=== PATIENT | male | born 1970 | race Two or more races ===

== ENCOUNTER 2020-11-17 10:55 | Outpatient (REF) | payer MEDICARE, SELFPAY ==
[2020-11-17 13:59] LABS: MANUAL DIFF FLAG NO
[2020-11-17 14:08] LABS: Basophils Absolute Auto 0.1 X10*3/uL (0.0-0.2); Eosinophils Absolute Auto 0.2 X10*3/uL (0.0-0.4); Eosinophils Percent Auto 2.7 % (0-4); Hematocrit 47.8 % (42-52); Hemoglobin 16.3 g/dl (14.0-18.0); Imm Gran Abs Auto 0.01 X10*3/uL (0.00-0.03); Imm Gran Pct Auto 0.2 % (0.0-0.4); Lymphocytes Absolute Auto 2.5 X10*3/uL (1.2-4.9); Lymphocytes Percent Auto 42.1 % (20-40); Mean Corpuscular HGB Conc 34.1 g/dl (31.0-36.0); Mean Corpuscular Hemoglobin 31.1 pg (27.0-33.0); Mean Corpuscular Volume 91.2 fL (80-98); Mean Platelet Volume 12.3 fL (9.4-12.4); Monocytes Absolute Auto 0.7 X10*3/uL (0.1-1.2); Monocytes Percent Auto 11.7 % (2-11); Neutrophils Absolute Auto 2.5 X10*3/uL (2.0-8.3); Neutrophils Percent Auto 42.3 % (45-73); Platelet Count 166 X10*3/uL (160-400); Red Blood Count 5.24 X10*6/uL (4.60-5.80)
[2020-11-17 14:34] LABS: Estimated Average Glucose 346 mg/dL; Hemoglobin A1c % 13.7 %
[2020-11-17 14:43] LABS: TSH reflex Free T4 4.49 uIU/mL (0.32-4.0)
[2020-11-17 14:47] LABS: Alanine Aminotransferase 120 U/L (0-40); Albumin Level 4.3 g/dL (3.5-5.0); Alkaline Phosphatase 105 U/L (39-117); Anion Gap 16 (12-20); Aspartate Amino Transferase 96 U/L (5-37); Blood Urea Nitrogen 12 mg/dL (9-16); Calcium 9.9 mg/dL (8.4-10.2); Carbon Dioxide 28 mmol/L (22-29); Chloride 95 mmol/L (96-108); Estimated Glomerular Filt Rate > 60; Glucose Fasting 397 mg/dL (60-99); Potassium 5.1 mmol/L (3.3-5.1); Sodium 134 mmol/L (135-145); Total Protein 8.6 g/dL (6.5-8.0)
[2020-11-17 15:18] LABS: Free T4 (Free Thyroxine) 1.18 ng/dL (0.71-1.85)
[2020-11-17 17:10] LABS: CT PCR NOT DETECTED (Not Detect.); NG PCR NOT DETECTED (Not Detect.)
[2020-11-18 04:41] LABS: HBc Num1 0.21 S/CO (0.00-0.79); HIV AB/AG Nonreactive (Nonreactive); HIV Num 1 0.06 S/CO (0.00-0.99); Hepatitis A Antibody IgM 0.17 Index (0-0.79); Hepatitis B Core Antibody Nonreactive (Nonreactive); ~HepC Num1 0.13 S/CO (0.00-0.79); ~Hepatitis A Antibody IgM Nonreactive (Nonreactive); ~Hepatitis C Antibody Nonreactive (Nonreactive)
[2020-11-18 05:06] LABS: HBS Num1 > 1000.00 mIU/mL (0-7.99); HBsAGNum1 0.32 S/CO (0.00-0.99); Hepatitis B Surface Antigen Negative (Negative); ~Hepatitis B Surface Antibody REACTIVE (Nonreactive)
[2020-11-18 07:08] LABS: Syphilis Screen Nonreactive (Nonreactive)
== END 2020-11-17 10:56 | disposition home or self-care (01) ==
LOC: HO.HMGCLDS 10:55
PROVIDERS: PCP Nurse Practitioner Family; Visit Provider Nurse Practitioner Family
DX: Z12.5 Encounter for screening for malignant neoplasm of prostate (principal); Z11.3 Encounter for screening for infections with a predominantly sexual mode of transmission; Z01.84 Encounter for antibody response examination; Z11.4 Encounter for screening for human immunodeficiency virus [HIV]; R63.4 Abnormal weight loss; R73.01 Impaired fasting glucose
CPT/HCPCS: 80053; 83036; 84153; 84439; 84443; 85025; 86704; 86706; 86709; 86780; 86803; 87340; 87389; 87491; 87591

== ENCOUNTER 2020-11-29 08:50 | Outpatient (REF) | payer MEDICARE, SELFPAY ==
--- NOTE | ~2020-11-29 | US_ITS ---
EXAMINATION: US ABDOMEN COMPLETE CLINICAL INFORMATION: Elevated liver enzymes. COMPARISON: Abdominal ultrasound dated 02/02/2020 TECHNIQUE: Real-time imaging of the abdominal viscera. FINDINGS: PANCREAS: Normal. ABDOMINAL AORTA: Partially visualized and unremarkable. INFERIOR VENA CAVA: Partially visualized and unremarkable. LIVER: Normal. The liver is normal in size. The liver contour is normal. Parenchymal echogenicity is normal. No focal hepatic lesion. There is no intrahepatic biliary duct dilatation seen. GALLBLADDER: Normal. The gallbladder is physiologically distended without evidence of stones, sludge, polyps, wall thickening or pericholecystic fluid. COMMON BILE DUCT: Normal in caliber measuring 0.3 cm in diameter. RIGHT KIDNEY: Normal. No hydronephrosis. No renal calculi or focal parenchymal lesions. The kidney measures 10 cm in maximum dimension. LEFT KIDNEY: Normal. No hydronephrosis. No renal calculi or focal parenchymal lesions. The kidney measures 11.4 cm in maximum dimension. SPLEEN: Normal. The spleen measures 10.8 cm in maximum dimension. FREE FLUID: None. US/US abdomen complete IMPRESSION: Increased hepatic parenchymal echogenicity, which can be seen in the setting of steatosis. Underlying hepatocellular disease cannot be excluded. No hepatic parenchymal lesion or biliary ductal dilatation.
== END 2020-11-29 08:51 | disposition home or self-care (01) ==
LOC: HO.HMGCX 08:50
PROVIDERS: Visit Provider Nurse Practitioner Family
DX: R74.8 Abnormal levels of other serum enzymes (principal)
CPT/HCPCS: 76700

== ENCOUNTER 2021-08-08 12:07 | Outpatient (REF) | payer MEDICARE, SELFPAY ==
[2021-08-08 14:00] LABS: Appearance Urine CLEAR; Color Urine YELLOW; Glucose Urine UA NEG (NEG); Leukocyte Esterase Urine NEG (NEG); Nitrite Urine NEG (NEG); UACC Culture Trigger NO; Urine Blood NEG (NEG); Urine Ketones NEG (NEG); Urine Protein 1+ MG/DL (NEG-TRACE)
[2021-08-08 14:12] LABS: Estimated Average Glucose 169 mg/dL; Hemoglobin A1c % 7.5 %
[2021-08-08 14:13] LABS: Mucus Urine 1+ /LPF; RBC Urine 0 /HPF (0); Squamous Epithelial Cell Urine TRACE /LPF; WBC Urine 0 /HPF (0-4)
[2021-08-08 14:25] LABS: Alanine Aminotransferase 127 U/L (0-40); Albumin Level 4.2 g/dL (3.5-5.0); Alkaline Phosphatase 62 U/L (39-117); Anion Gap 12 (12-20); Aspartate Amino Transferase 95 U/L (5-37); Bilirubin Total 0.9 mg/dL (0.0-1.0); Blood Urea Nitrogen 15 mg/dL (9-16); Calcium 10.1 mg/dL (8.4-10.2); Carbon Dioxide 28 mmol/L (22-29); Chloride 101 mmol/L (96-108); Cholesterol 168 mg/dL; Estimated Glomerular Filt Rate > 60; Glucose Fasting 137 mg/dL (60-99); HDL Cholesterol 35 mg/dL; LDL Cholesterol Calculated 102 mg/dl; Potassium 4.7 mmol/L (3.3-5.1); Sodium 136 mmol/L (135-145); Total Protein 8.2 g/dL (6.5-8.0); Triglycerides 158 mg/dL
[2021-08-08 14:33] LABS: Creatinine Urine 163.93 mg/dL; Microalbum/Creatinine Ratio Ur 167.7 ug/mg cr
[2021-08-08 14:34] LABS: TSH reflex Free T4 5.39 uIU/mL (0.32-4.0)
[2021-08-08 15:18] LABS: Free T4 (Free Thyroxine) 0.93 ng/dL (0.71-1.85)
== END 2021-08-08 12:08 | disposition home or self-care (01) ==
LOC: HO.HMGCLDS 12:07
PROVIDERS: PCP Nurse Practitioner Family; Visit Provider Nurse Practitioner Family
DX: E11.9 Type 2 diabetes mellitus without complications (principal)
CPT/HCPCS: 36415; 80053; 80061; 81001; 81003; 82043; 83036; 84439; 84443

== ENCOUNTER → 2021-08-15 09:37 | Outpatient (BNVA) | payer MEDICARE, SELFPAY | PROVIDERS: PCP Nurse Practitioner Family; Referring Provider Nurse Practitioner Family; Visit Provider Nurse Practitioner | DX: Z12.11 Encounter for screening for malignant neoplasm of colon (principal); K59.00 Constipation, unspecified | CPT/HCPCS: 99202 ==

== ENCOUNTER 2021-09-07 15:33 | Outpatient (REF) | payer MEDICARE, SELFPAY ==
--- NOTE | ~2021-09-07 | MR_ITS ---
EXAMINATION: MR BRAIN WITHOUT CONTRAST CLINICAL INFORMATION: Migraine, unspecified, not intractable, without status migrainosus. COMPARISON: None available. TECHNIQUE: Multiplanar, multisequence imaging of the brain was performed without intravenous contrast. FINDINGS: There is no acute infarction, mass, hemorrhage, or extra-axial collection. The ventricles, sulci, and basilar cisterns are normal in size and configuration. A few minimal nonspecific foci of T2/FLAIR hyperintensity are seen within the frontal lobe deep white matter. The brain parenchyma signal is otherwise unremarkable. No parenchymal volume loss is seen. The cerebellar tonsils are normally positioned above the foramen magnum. The flow voids of the major intracranial arteries appear intact. The bones and extracranial soft tissues are unremarkable. The orbital contents appear normal. No paranasal sinus fluid levels are seen. MR/MR head/brain wo con IMPRESSION: No acute intracranial abnormality identified. No mass, extra-axial collection, or hydrocephalus.
== END 2021-09-07 15:34 | disposition home or self-care (01) ==
LOC: HO.MRI 15:33
PROVIDERS: Visit Provider Nurse Practitioner Family
DX: G43.909 Migraine, unspecified, not intractable, without status migrainosus (principal)
CPT/HCPCS: 70551

== ENCOUNTER → 2021-12-22 12:48 | Outpatient (BNVA) | payer MEDICARE, MEDICAID, SELFPAY | PROVIDERS: PCP Nurse Practitioner Family; Visit Provider Nurse Practitioner Family | DX: G43.909 Migraine, unspecified, not intractable, without status migrainosus (principal); R06.83 Snoring; G47.19 Other hypersomnia; G47.9 Sleep disorder, unspecified; R25.1 Tremor, unspecified; F45.8 Other somatoform disorders | CPT/HCPCS: 99202 ==

== ENCOUNTER 2022-01-15 11:08 | Outpatient (REF) | payer MEDICARE, MEDICAID, SELFPAY ==
[2022-01-15 13:49] LABS: Appearance Urine HAZY; Color Urine YELLOW; Glucose Urine UA NEG (NEG); Leukocyte Esterase Urine NEG (NEG); Nitrite Urine NEG (NEG); PH 5.5 (5.0-8.0); Specific Gravity - Urine >= 1.030 (1.005-1.025); UACC Culture Trigger NO; Urine Blood NEG (NEG); Urine Ketones NEG (NEG); Urine Protein 2+ MG/DL (NEG-TRACE)
[2022-01-15 14:01] LABS: Bacteria Urine TRACE /LPF; Mucus Urine 2+ /LPF; RBC Urine 0-2 /HPF (0); WBC Urine 0-2 /HPF (0-4)
[2022-01-15 14:02] LABS: Alanine Aminotransferase 97 U/L (0-40); Albumin Level 4.2 g/dL (3.5-5.0); Alkaline Phosphatase 58 U/L (39-117); Anion Gap 13 (12-20); Aspartate Amino Transferase 70 U/L (5-37); Bilirubin Total 0.9 mg/dL (0.0-1.0); Blood Urea Nitrogen 16 mg/dL (9-16); Calcium 9.6 mg/dL (8.4-10.2); Carbon Dioxide 26 mmol/L (22-29); Chloride 102 mmol/L (96-108); Cholesterol 228 mg/dL; Estimated Glomerular Filt Rate > 60; Glucose Fasting 145 mg/dL (60-99); HDL Cholesterol 46 mg/dL; LDL Cholesterol Calculated 159 mg/dl; Potassium 4.9 mmol/L (3.3-5.1); Sodium 136 mmol/L (135-145); Total Protein 8.1 g/dL (6.5-8.0); Triglycerides 119 mg/dL
[2022-01-15 14:18] LABS: Estimated Average Glucose 169 mg/dL; Hemoglobin A1c % 7.5 %
[2022-01-15 14:26] LABS: Prostate Specific Antigen Scr 0.21 ng/mL (<0.05-4.0); TSH reflex Free T4 3.94 uIU/mL (0.32-4.0)
== END 2022-01-15 11:09 | disposition home or self-care (01) ==
LOC: HO.HMGCLDS 11:08
PROVIDERS: PCP Nurse Practitioner Family; Visit Provider Nurse Practitioner Family
DX: Z12.5 Encounter for screening for malignant neoplasm of prostate (principal); E11.9 Type 2 diabetes mellitus without complications
CPT/HCPCS: 36415; 80053; 80061; 81001; 83036; 84153; 84443

== ENCOUNTER 2022-08-01 08:29 | Outpatient (REF) | payer MEDICARE, SELFPAY ==
[2022-08-01 11:20] LABS: MANUAL DIFF FLAG NO
[2022-08-01 11:26] LABS: Basophils Percent Auto 0.7 % (0-2); Eosinophils Percent Auto 4.9 % (0-4); Hematocrit 45.6 % (42.0-52.0); Hemoglobin 14.9 g/dl (14.0-18.0); Imm Gran Pct Auto 0.3 % (0.0-0.4); Lymphocytes Percent Auto 48.4 % (20-40); Mean Corpuscular HGB Conc 32.7 g/dl (31.0-36.0); Mean Corpuscular Hemoglobin 30.2 pg (27.0-33.0); Mean Corpuscular Volume 92.3 fL (80.0-98.0); Mean Platelet Volume 11.1 fL (9.4-12.4); Monocytes Percent Auto 11.3 % (2-11); Neutrophils Percent Auto 34.4 % (45-73); Platelet Count 166 X10*3/uL (160-400); Red Blood Count 4.94 X10*6/uL (4.60-5.80); Red Cell Distribution Width 12.5 % (11.0-16.0); White Blood Count 5.8 X10*3/uL (4.8-10.8)
[2022-08-01 11:27] LABS: Eosinophils Absolute Auto 0.3 X10*3/uL (0.0-0.4); Imm Gran Abs Auto 0.02 X10*3/uL (0.00-0.03); Lymphocytes Absolute Auto 2.8 X10*3/uL (1.2-4.9); Monocytes Absolute Auto 0.7 X10*3/uL (0.1-1.2)
[2022-08-01 11:43] LABS: Appearance Urine Clear; Color Urine Dark Yellow; Glucose Urine UA 100 mg/dL (Negative); Leukocyte Esterase Urine Negative (Negative); Nitrite Urine Negative (Negative); PH 6.5 (5.0-9.0); Specific Gravity - Urine >= 1.030 (1.005-1.025); UMIC TRIGGER UACC YES; Urine Blood Negative (Negative); Urine Ketones Trace mg/dL (Negative); Urine Protein 30 (1+) mg/dL (Neg-Trace)
[2022-08-01 11:48] LABS: Bacteria Urine None Seen (None Seen); Hyaline Casts Urine 0-2 /LPF (0-2); RBC Urine 0-2 /HPF (0-2); Squamous Epithelial Cell Urine 0-2 /HPF (0-2); WBC Urine 0-5 /HPF (0-5)
[2022-08-01 11:52] LABS: Estimated Average Glucose 206 mg/dL; Hemoglobin A1c % 8.8 %
[2022-08-01 11:57] LABS: Alanine Aminotransferase 83 U/L (0-40); Albumin Level 3.8 g/dL (3.5-5.0); Alkaline Phosphatase 91 U/L (39-117); Anion Gap 10 (12-20); Aspartate Amino Transferase 54 U/L (5-37); Bilirubin Total 0.7 mg/dL (0.0-1.0); Blood Urea Nitrogen 15 mg/dL (9-16); Calcium 9.3 mg/dL (8.4-10.2); Carbon Dioxide 28 mmol/L (22-29); Chloride 105 mmol/L (96-108); Cholesterol 181 mg/dL; Estimated Glomerular Filt Rate > 60; Glucose Fasting 160 mg/dL (60-99); HDL Cholesterol 29 mg/dL; LDL Cholesterol Calculated 105 mg/dl; Potassium 4.7 mmol/L (3.3-5.1); Prostate Specific Antigen Scr 0.19 ng/mL (<0.05-4.0); Sodium 138 mmol/L (135-145); TSH reflex Free T4 5.56 uIU/mL (0.32-4.0); Total Protein 7.6 g/dL (6.5-8.0); Triglycerides 237 mg/dL
[2022-08-01 12:12] LABS: Creatinine Urine 228.05 mg/dL; Microalbum/Creatinine Ratio Ur 103.4 ug/mg cr
[2022-08-01 13:17] LABS: Free T4 (Free Thyroxine) 1.09 ng/dL (0.71-1.85)
== END 2022-08-01 08:30 | disposition home or self-care (01) ==
LOC: HO.HMGCLDS 08:29
PROVIDERS: PCP Nurse Practitioner Family; Visit Provider Nurse Practitioner Family
DX: Z12.5 Encounter for screening for malignant neoplasm of prostate (principal); E11.9 Type 2 diabetes mellitus without complications
CPT/HCPCS: 36415; 80053; 80061; 81001; 82043; 83036; 84153; 84439; 84443; 85025

== ENCOUNTER 2022-08-30 08:43 | Outpatient (REF) | payer MEDICARE, MEDICAID, SELFPAY ==
[2022-08-30 11:26] LABS: Hematocrit 46.4 % (42.0-52.0); Hemoglobin 15.4 g/dl (14.0-18.0); Mean Corpuscular HGB Conc 33.2 g/dl (31.0-36.0); Mean Corpuscular Hemoglobin 30.8 pg (27.0-33.0); Mean Corpuscular Volume 92.8 fL (80.0-98.0); Mean Platelet Volume 11.5 fL (9.4-12.4); Platelet Count 181 X10*3/uL (160-400); Red Cell Distribution Width 13.2 % (11.0-16.0)
[2022-08-30 11:40] LABS: Alanine Aminotransferase 123 U/L (0-40); Albumin Level 3.8 g/dL (3.5-5.0); Alkaline Phosphatase 84 U/L (39-117); Anion Gap 11 (12-20); Aspartate Amino Transferase 101 U/L (5-37); Bilirubin Direct 0.5 mg/dL (0.0-0.5); Bilirubin Total 1.2 mg/dL (0.0-1.0); Blood Urea Nitrogen 13 mg/dL (9-16); Calcium 9.5 mg/dL (8.4-10.2); Carbon Dioxide 26 mmol/L (22-29); Chloride 103 mmol/L (96-108); Estimated Glomerular Filt Rate > 60; Glucose Random 149 mg/dL (60-115); Potassium 4.4 mmol/L (3.3-5.1); Sodium 136 mmol/L (135-145)
[2022-08-30 11:57] LABS: TSH reflex Free T4 4.37 uIU/mL (0.32-4.0)
[2022-08-30 12:00] LABS: Thyroid Stimulating Hormone 4.61 uIU/mL (0.32-4.0)
[2022-08-30 12:30] LABS: Free T4 (Free Thyroxine) 1.05 ng/dL (0.71-1.85)
[2022-08-31 11:09] LABS: Thyroid Peroxidase Antibodies 2 IU/mL (<9)
== END 2022-08-30 08:44 | disposition home or self-care (01) ==
LOC: HO.HMGCLDS 08:43
PROVIDERS: PCP Nurse Practitioner Family; Visit Provider Internal Medicine
DX: R53.83 Other fatigue (principal); R79.89 Other specified abnormal findings of blood chemistry
CPT/HCPCS: 36415; 80048; 80076; 84439; 84443; 85027; 86376

== ENCOUNTER 2022-09-25 07:37 | Outpatient (REF) | payer MEDICARE, MEDICAID, SELFPAY ==
--- NOTE | ~2022-09-25 | US_ITS ---
EXAMINATION: US ABDOMEN COMPLETE CLINICAL INFORMATION: Elevated liver enzymes. COMPARISON: Ultrasound abdomen complete 11/29/2020 and 02/02/2020. TECHNIQUE: Real-time imaging of the abdominal viscera. FINDINGS: PANCREAS: The head and body appear normal. The tail is obscured by bowel gas. ABDOMINAL AORTA: The visualized portion is normal. INFERIOR VENA CAVA: Visualized portions are normal. LIVER: The liver is normal in size. The liver parenchyma is coarsened and heterogeneous. No discrete mass. No biliary ductal dilatation. GALLBLADDER: Surgically absent. COMMON BILE DUCT: Normal in caliber measuring 0.3 cm in diameter. RIGHT KIDNEY: Normal. No hydronephrosis. No renal calculi or focal parenchymal lesions. The kidney measures 10.6 cm in maximum dimension. LEFT KIDNEY: Normal. No hydronephrosis. No renal calculi or focal parenchymal lesions. The kidney measures 11.0 cm in maximum dimension. SPLEEN: Normal. The spleen measures 11.0 cm in maximum dimension. FREE FLUID: None. US/US abdomen complete IMPRESSION: Coarsened and heterogeneous liver parenchyma may reflect chronic hepatocellular disease or hepatic steatosis. No overt cirrhotic morphology. No liver mass or ductal dilatation.
== END 2022-09-25 07:38 | disposition home or self-care (01) ==
LOC: HO.US 07:37
PROVIDERS: Visit Provider Nurse Practitioner Family
DX: R74.8 Abnormal levels of other serum enzymes (principal)
CPT/HCPCS: 76700

== ENCOUNTER 2022-12-18 08:19 | Day surgery (SDC) | payer MEDICARE, MEDICAID, SELFPAY ==
[2022-12-14 08:46] VITALS: BMI 33.8
--- NOTE | 2022-12-17 12:17 | HO.ANESPROP2 ---
Documented by User: Ami Hopkins NP 12/17/22 12:19 HPI - Anesthesia Eval Consult details Narrative: 52yo M for Colonoscopy PMFSH Active Problems Active Problems: All Active Problems (Updated 12/14/22 @ 08:45 by Kerline Pastor, [place]) Weight loss (Acute) Elevated fasting blood sugar (Acute) Screening PSA (prostate specific antigen) (Acute) Blurred vision, bilateral (Acute) Screening for STD (sexually transmitted disease) (Acute) Newly diagnosed diabetes (Acute) Elevated liver enzymes (Acute) Screening for colon cancer (Acute) Constipation (Acute) Diabetes (Acute) Bunion of great toe (Acute) Snoring (Acute) Excessive daytime sleepiness (Acute) Sleep disorder (Acute) Tremor (Acute) Bruxism (Acute) Allergic rhinitis (Acute) Screening for colon cancer (Acute) Elevated TSH (Acute) Fatigue (Acute) Migraines (Acute) Past Medical History Medical History Depression with anxiety Diabetes Fatty liver HTN (hypertension) Migraines Night terror PTSD (post-traumatic stress disorder) Suicidal ideation Family History Family History Father No problems noted. Mother No problems noted. Maternal Grandfather Cancer Other Mental health disorder Surgical History Surgical History H/O colonoscopy History of appendectomy History of esophagogastroduodenoscopy (EGD) History of shoulder surgery Hx of cholecystectomy Hx of left knee surgery Hx of nasal septoplasty Hx of right knee surgery Social History Social History Housing: House Alcohol intake: never Patient Tobacco Use Status: Never used Tobacco e-Cigarette/Vaping Use: Never Used Second Hand Smoke Exposure: Yes Use of substances other than those prescribed or required for medical reasons: No Are you DNR?: No Advance Directives: No Advance Directives Information Provided: Yes service: No Current occupational status: disabled Cognitive needs: No Hearing needs: No Vision needs: No Meds Allergies Allergy/AdvReac Type Severity Reaction Status Date / Time acetaminophen [Tylenol] AdvReac Unknown DUE TO Verified 12/18/22 09:18 LIVER DISEASE dextromethorphan AdvReac Unknown HX OF Verified 12/18/22 09:18 [From NyQuil] OVERDOSE doxylamine [From NyQuil] AdvReac Unknown HX OF Verified 12/18/22 09:18 OVERDOSE pseudoephedrine [From NyQuil] AdvReac Unknown HX OF Verified 12/18/22 09:18 OVERDOSE Home Medications Medication Instructions Recorded Confirmed Last Taken Type hydroxyzine HCl 25 mg tablet 25 mg PO DAILY PRN Anxiety 12/22/21 12/18/22 Unknown History Exam Exam Date and Time: December 17, 2022 1217 Height,Weight and Vital Signs: Height 5 ft 3 in Weight 86.636 kg Pertinent Lab Results Pertinent Lab Results: Laboratory Tests 08/30/22 08/30/22 08:48 08:48 WBC 8.0 Hgb 15.4 Hct 46.4 Plt Count 181 Sodium 136 Potassium 4.4 Chloride 103 Carbon Dioxide 26 BUN 13 Creatinine 0.89 Laboratory Tests 08/30/22 08/30/22 08:48 08:48 TSH 4.61 H Free T4 1.05 Narrative Narrative: EKG 10/2022 NSR with 1st Deg AV block Assessment and Plan Assessment Anesthesia Assessment: Chart Reviewed Documented by User: Steven Alejandre MD 12/18/22 10:27 [facility] Past Medical History Medical History Depression with anxiety Diabetes Fatty liver HTN (hypertension) Migraines Night terror PTSD (post-traumatic stress disorder) Suicidal ideation Family History Family History Father No problems noted. Mother No problems noted. Maternal Grandfather Cancer Other Mental health disorder Family history of problems with anesthesia: No Surgical History Surgical History H/O colonoscopy History of appendectomy History of esophagogastroduodenoscopy (EGD) History of shoulder surgery Hx of cholecystectomy Hx of left knee surgery Hx of nasal septoplasty Hx of right knee surgery History of Problems with Anesthesia: No Social History Social History Housing: House Alcohol intake: never Patient Tobacco Use Status: Never used Tobacco e-Cigarette/Vaping Use: Never Used Second Hand Smoke Exposure: Yes Use of substances other than those prescribed or required for medical reasons: No Are you DNR?: No Advance Directives: No Advance Directives Information Provided: Yes service: No Current occupational status: disabled Cognitive needs: No Hearing needs: No Vision needs: No Meds Allergies Allergy/AdvReac Type Severity Reaction Status Date / Time acetaminophen [Tylenol] AdvReac Unknown DUE TO Verified 12/18/22 09:18 LIVER DISEASE dextromethorphan AdvReac Unknown HX OF Verified 12/18/22 09:18 [From NyQuil] OVERDOSE doxylamine [From NyQuil] AdvReac Unknown HX OF Verified 12/18/22 09:18 OVERDOSE pseudoephedrine [From NyQuil] AdvReac Unknown HX OF Verified 12/18/22 09:18 OVERDOSE Home Medications Medication Instructions Recorded Confirmed Last Taken Type hydroxyzine HCl 25 mg tablet 25 mg PO DAILY PRN Anxiety 12/22/21 12/18/22 Unknown History Exam Airway Mallampati Class: II TM Dist: >3cm Neck ROM: Full Loose/Missing/Broken Teeth: No Assessment and Plan Assessment Anesthesia Assessment: Anesthesia Plan Discussed Final Anesthetic Review Family History of Problems with Anesthesia: No History of Problems with Anesthesia: No NPO: Yes ASA Class: III Final Preanesthetic Review: No Changes in Pt Med Stat, Meds/Allgs Chart Reviewed, Consent Obtained/Reviewed and Anes Risks/Benef Reviewed Patient Risk: Intermediate Procedure Risk: Low Anesthetic Plan Anesthetic Plan: MAC: Disposition: Standard PACU
[2022-12-18 09:03] VITALS: BP 115/75; PULSE 64; RESP 16; TEMP 36.3; O2SAT 99; BMI 33.7
[2022-12-18 09:27] LABS: Glucose, Whole Blood 94 mg/dL (60-115)
--- NOTE | 2022-12-18 09:33 | P.HPSUR_ITS ---
Pre-Procedural Eval Section A Date of Service: 12/18/22 Section B Chief Complaint: Screening Relevant Family History (Specify if Yes): No Relevant Social History: None Present Medications: see Short Stay Collaborative assessment Medical History: Significant History (Depression with anxiety Diabetes Fatty liver HTN (hypertension) Migraines Night terror PTSD (post-traumatic stress disorder) Suicidal ideation) History of Previous Operations: Relevant previous surgery/procedure and date(s) (appendectomy, H/O colonoscopy History of appendectomy History of esophagogastroduodenoscopy (EGD) History of shoulder surgery Hx of cholecystectomy Hx of left knee surgery Hx of nasal septoplasty Hx of right knee surgery) Allergies: Allergies Allergy/AdvReac Type Severity Reaction Status Date / Time acetaminophen [Tylenol] AdvReac Unknown DUE TO Verified 12/18/22 09:18 LIVER DISEASE dextromethorphan AdvReac Unknown HX OF Verified 12/18/22 09:18 [From NyQuil] OVERDOSE doxylamine [From NyQuil] AdvReac Unknown HX OF Verified 12/18/22 09:18 OVERDOSE pseudoephedrine [From NyQuil] AdvReac Unknown HX OF Verified 12/18/22 09:18 OVERDOSE Review of Systems Sugical H&P ROS: Negative: Constitution, Cardiovascular, Respiratory, Neurologi axel, Psychiatric, Hem-Onc, Allergic/Immunologic, Gastrointestinal, Genitourinary, Musculoskeletal, Integumentary, Endocrine and Eyes/Ears/Nose/Throat Exam Surgical H&P Exam: Normal: HEENT, Normal: Heart, Normal: Lungs, Normal: Extremities, Normal: Abdomen, Normal: Skin and Normal: Neurological Plan Diagnosis/Plan: Unchanged I have reviewed the history and physical and performed a pertinent physical examination on my patient. No changes have occurred unless specified. Time Spent With Patient Time: Total time managing care of this patient today ____ minutes.
[2022-12-18] MEDS: Lactated Ringers 1,000 ML 100 ML IVCONT (09:54)
--- NOTE | 2022-12-18 10:14 | W.PM.OPN ---
Operative Note Operative Note Date of Service: 12/18/22 Narrative: Operative Information Procedure Description: Colonoscopy Indication: screening Anesthesia: MAC COLONOSCOPY Instrument: Olympus variable stiffness pediatric scope 190L Colonoscopy Monitoring: Vital signs and clinical assessment, continuous EKG monitoring, Pulse oximetry, Carbon Dioxide monitoring and blood pressure monitoring were done throughout the procedure. Colon withdrawal time was 12 minutes. Procedure: The patient was placed in the left lateral decubitis position and pre-procedure medications were administered. After a digital rectal examination of the ano-rectum, the video colonoscope was inserted into the rectum and advanced through the colon to the cecum/TI. The colonoscope was slowly withdrawn in a retrograde panoramic fashion and the colon mucosa was carefully examined including a retroflexed view of the rectum. Findings and interventions are described below. Procedure Difficulty: moderate, pressure applied due to looping Findings: Terminal Ileum-normal melanosis coli noted Cecum:normal Ascending Colon: 10 mm sessile polyp removed with cold snare, not retrieved Transverse Colon -normal Descending Colon:normal Sigmoid Colon: 10 mm sessile polyp removed with cold forceps Rectum: Retroflexion with moderate sized internal hemorrhoids, grade I Anorectum - normal Colon preparation: [place] Bowel Preparation Scale Right colon; 1 Transverse colon: 2 Left colon; 2 (0 = Unprepared colon segment with mucosa not seen due to solid stool that cannot be cleared. 1 = Portion of mucosa of the colon segment seen, but other areas of the colon segment not well seen due to staining, residual stool and/or opaque liquid. 2 = Minor amount of residual staining, small fragments of stool and/or opaque liquid, but mucosa of colon segment seen well. 3 = Entire mucosa of colon segment seen well with no residual staining, small fragments of stool or opaque liquid) Impression and Post Procedure Diagnosis: melanosis coli polyps internal hemorrhoids Plan: High fiber diet leaflet Avoid straining at stool, epsom salts and sitz bath, anusol supps or cream Repeat Colonoscopy in 6-12 months due to poor right sided prep or earlier if clinically indicated Above findings were reviewed with the patient and relevant handouts were provided if indicated.
[2022-12-18 11:08] VITALS: BP 92/58; PULSE 64; RESP 16; TEMP 36.6; O2SAT 93
[2022-12-18 11:23] VITALS: BP 103/64; PULSE 60; RESP 16; TEMP 36.6; O2SAT 97
== END 2022-12-18 11:52 | disposition home or self-care (01) ==
PROVIDERS: PCP Nurse Practitioner Family; Visit Provider Internal Medicine Gastroenterology
PROC: 0DJD8ZZ Inspection of Lower Intestinal Tract, Via Natural or Artificial Opening Endoscopic (ICD-10-PCS; CPT 45378; principal; 2022-12-18 10:10)
DX: Z12.11 Encounter for screening for malignant neoplasm of colon (principal); K63.5 Polyp of colon; K63.89 Other specified diseases of intestine; K64.0 First degree hemorrhoids; K76.0 Fatty (change of) liver, not elsewhere classified; F41.8 Other specified anxiety disorders; F43.10 Post-traumatic stress disorder, unspecified; F51.4 Sleep terrors [night terrors]; R45.851 Suicidal ideations; G43.909 Migraine, unspecified, not intractable, without status migrainosus; I10 Essential (primary) hypertension; E11.9 Type 2 diabetes mellitus without complications; Z79.84 Long term (current) use of oral hypoglycemic drugs; Z79.899 Other long term (current) drug therapy; Z88.8 Allergy status to other drugs, medicaments and biological substances; Z90.49 Acquired absence of other specified parts of digestive tract
CPT/HCPCS: 45385; 45380; 82947; 88305

== ENCOUNTER 2022-12-29 10:05 | Outpatient (REF) | payer MEDICARE, MEDICAID, SELFPAY ==
[2022-12-29 11:07] LABS: Alanine Aminotransferase 92 U/L (0-40); Albumin Level 4.2 g/dL (3.5-5.0); Alkaline Phosphatase 83 U/L (39-117); Aspartate Amino Transferase 74 U/L (5-37); Bilirubin Direct 0.3 mg/dL (0.0-0.5); Total Protein 8.1 g/dL (6.5-8.0)
[2022-12-29 11:11] LABS: Appearance Urine Clear; Color Urine Yellow; Glucose Urine UA Negative (Negative); Leukocyte Esterase Urine Negative (Negative); Nitrite Urine Negative (Negative); PH 6.5 (5.0-9.0); Urine Blood Negative (Negative); Urine Ketones Negative (Negative); Urine Protein Trace mg/dL (Neg-Trace)
[2022-12-31 04:38] LABS: HBS Num1 > 1000.00 mIU/mL (0-7.99); HBc Num1 0.12 S/CO (0.00-0.79); HBsAGNum1 0.31 S/CO (0.00-0.99); Hepatitis A Antibody IgM 0.14 Index (0-0.79); Hepatitis B Core Antibody Nonreactive (Nonreactive); Hepatitis B Surface Antigen Negative (Negative); ~HepC Num1 0.16 S/CO (0.00-0.79); ~Hepatitis A Antibody IgM Nonreactive (Nonreactive); ~Hepatitis B Surface Antibody REACTIVE (Nonreactive); ~Hepatitis C Antibody Nonreactive (Nonreactive)
== END 2022-12-29 10:06 | disposition home or self-care (01) ==
LOC: HO.LAB 10:05
PROVIDERS: PCP Nurse Practitioner Family; Visit Provider Nurse Practitioner Family
DX: R74.8 Abnormal levels of other serum enzymes (principal); E11.9 Type 2 diabetes mellitus without complications
CPT/HCPCS: 36415; 80076; 81003; 86704; 86706; 86709; 86803; 87340

== ENCOUNTER 2023-02-23 09:07 | Outpatient (AMB) | payer MEDICARE, MEDICAID, SELFPAY ==
--- NOTE | 2023-02-23 09:42 | AM.OFFWIN_ITS ---
Intake Vital Signs 02/23/23 09:43 Height 5 ft 3 in BP 100/62 Blood Pressure Location Lt brachial Position Sitting Pulse 72 Pulse Source Pulse Oximeter Temp 97.5 F Temp Source Temporal Artery Scan Pulse Oximetry (%) 98 Oxygen Delivery Method Room Air Intake Visit Reasons: EP Cough for a week [phone] Intake Note: pt is here for c/o cough for over a week, negative test on covid Patient Tobacco Use Status: Never used Tobacco Allergies acetaminophen [Tylenol] Adverse Reaction (Unknown, Verified 02/23/23 09:52) DUE TO LIVER DISEASE dextromethorphan [From NyQuil] Adverse Reaction (Unknown, Verified 02/23/23 09:52) HX OF OVERDOSE doxylamine [From NyQuil] Adverse Reaction (Unknown, Verified 02/23/23 09:52) HX OF OVERDOSE pseudoephedrine [From NyQuil] Adverse Reaction (Unknown, Verified 02/23/23 09:52) HX OF OVERDOSE Medication List - Last Reconciled 02/23/23 by Jagdish Cwoan PA-C alcohol swabs (Alcohol Pads) 1 pad topical BID amitriptyline 50 mg PO DAILY 90 days blood sugar diagnostic (Priccutuch Verio test strips) use to check morning fasting sugars, and randomly one other time throughout the day blood-glucose meter (AdjudicaTouch Verio Meter) use to check morning fasting sugars, and randomly one other time throughout the day buspirone 10 mg PO BID 90 days cetirizine 10 mg PO DAILY 90 days fluticasone propionate 50 mcg/actuation (Flonase Allergy Relief) 1 spray intranasal DAILY FreeStyle [place] 2 [place] (flash glucose scanning reader) tid testing NS FreeStyle Amparo 2 Sensor (flash glucose sensor) TID testing NS hydroxyzine HCl 25 mg PO DAILY PRN lancets Freestyle lancets Use to check morning fasting sugars, and randomly one other time throughout the day lancets (AdjudicaTouch Delica Lancets) Use to check morning fasting sugars, and randomly one other time lisinopril 2.5 mg PO DAILY 90 days magnesium oxide 400 mg PO BEDTIME PRN montelukast (Singulair) 10 mg PO BEDTIME omeprazole 20 mg PO DAILY pen needle, diabetic (BD Ultra-Fine Aliya Pen Needle) once a week pravastatin 20 mg PO DAILY propranolol 20 mg PO BID semaglutide (Ozempic) 1 mg (0.75 mL) subcut QWEEK sennosides (senna) 17.2 mg (2 x 8.6 mg) PO BEDTIME 30 days sumatriptan succinate 50 mg PO Q2-4H PRN 30 days tizanidine 4 mg PO BEDTIME PRN 30 days HPI EP Cough for a week [phone] HPI Details Patient is a 52-year-old male here today complaining of a cough for the last week. Patient has a past medical history significant for type 2 diabetes, hypertension, fatty liver. Has been tested for COVID for his cough though is negative. He reports his cough is mostly dry though at times does have productivity with white sputum of his cough. Otherwise denies any fevers, chills. He does report a week ago mowing his lawn and doing yard work which may have contributed to the development of his cough. [facility], [facility] Medical History (Updated 02/23/23 @ 09:55 by Jagdish Cowan PA-C) Depression with anxiety Diabetes Fatty liver HTN (hypertension) Migraines Night terror PTSD (post-traumatic stress disorder) Suicidal ideation Surgical History H/O colonoscopy History of appendectomy History of esophagogastroduodenoscopy (EGD) History of shoulder surgery Hx of cholecystectomy Hx of left knee surgery Hx of nasal septoplasty Hx of right knee surgery Family History Father No problems noted. Mother No problems noted. Maternal Grandfather Cancer Other Mental health disorder Social History Housing: House Alcohol intake: never Patient Tobacco Use Status: Never used Tobacco e-Cigarette/Vaping Use: Never Used Second Hand Smoke Exposure: Yes service: No Current occupational status: disabled Cognitive needs: No Hearing needs: No Vision needs: No Review of Systems Const Denies headache(s) Eyes Denies loss of vision ENT Denies vertigo, Denies dizziness, Denies headache(s) and Denies sore throat Card Denies chest pain, Denies leg edema and Denies lightheadedness Resp Reports cough, Denies hemoptysis and Denies wheezing GI Denies abdominal pain, Denies melena, Denies constipation, Denies diarrhea and Denies vomiting Denies dysuria, Denies urinary frequency and Denies urinary urgency Musc Denies arthralgias, Denies joint swelling, Denies numbness and Denies tingling Neuro Denies Abnormal speech present, Denies behavioral changes, Denies vertigo, Denies dizziness, Denies headache(s), Denies loss of vision, Denies memory loss, Denies numbness and Denies tingling Psych Denies anxiety, Denies behavioral changes, Denies depression, Denies memory loss and Denies panic attacks Ulysses/Lymph Denies easy bleeding and Denies easy bruising Aller/Immun Denies wheezing Physical Exam Vital Signs: Last Vital Signs Temp 97.5 F 02/23/23 09:43 Pulse 72 02/23/23 09:43 BP 100/62 02/23/23 09:43 Pulse Ox 98 02/23/23 09:43 Oxygen Delivery Method Room Air 02/23/23 09:43 Const General: healthy appearing, no acute distress, alert and awake Nutritional Appearance: well nourished Orientation/consciousness: oriented to person, oriented to place and oriented to time HEENT Ears: TM's normal bilaterally General nose exam: Normal nasal mucous membranes and turbinates present Eyes Conjunctivae: conjunctivae normal Sclerae: sclerae normal Pupils: Equal, round and reactive pupils present Neck Neck: Yes no lymphadenopathy and Yes no JVD Thyroid: Thyroid normal Carotids: no bruits Resp Effort & Inspection: normal respiratory effort and not tachypneic Auscultation: no crackles, no rales, no rhonchi and no wheezes Cardio Rate: regular rate Rhythm: regular rhythm Heart sounds: no murmurs and normal S1 and S2 GI Palpation (GI): Soft to palpation, nontender, no hepatomegaly and no splenomegaly Auscultation: normal bowel sounds Skin General skin exam: no rashes or lesions noted and dry skin Neuro General: oriented to person, oriented to place and oriented to time Cranial nerves: Yes Equal, round and reactive pupils present Speech: No Abnormal speech present Gait exam (Neuro): Normal gait present Motor exam (neuro): no tremor noted Extrem Right upper extremity: full ROM Left upper extremity: full ROM Right lower extremity: full ROM; no edema Left lower extremity: full ROM; no edema Psych Mental Status: mental status grossly normal Speech and movement: Normal speech and movement present Affect: normal affect Attitude: cooperative Thought process: Normal thought process present Assessment & Plan Assessment & Plan (1) Bronchitis: Code(s): J40 - Bronchitis, not specified as acute or chronic Plan: Patient's signs symptoms most consistent with a bronchitis. Pulmonary evaluation today in office fairly benign. Will send for x-ray to evaluate for any pulmonary infiltrates, if pulmonary infiltrates will send antibiotic. Otherwise will treat with albuterol inhaler and cough suppressant tablets. Advised on continuing his allergy medication. Orders: Orders XR chest 2V Today J40 - Bronchitis, not specified as acute or chronic Medications: New benzonatate 200 mg PO TID 5 days 15 caps 0RF J40 - Bronchitis, not specified as acute or chronic, R05.9 - Cough, unspecified albuterol sulfate 90 mcg/actuation 1 inh inhalation QID 30 days PRN 8.5 grams 0RF shortness of breath or wheezing J40 - Bronchitis, not specified as acute or chronic Coding Level of Care Code Est Pt Level 3 (77169) Diagnoses Bronchitis J40
[2023-02-23 09:43] VITALS: BP 100/62; PULSE 72; TEMP 36.4; O2SAT 98
== END 2023-02-23 10:21 | disposition home or self-care (01) ==
PROVIDERS: PCP Nurse Practitioner Family; Visit Provider Physician Assistant
DX: J40 Bronchitis, not specified as acute or chronic (principal)
CPT/HCPCS: 99213

== ENCOUNTER 2023-02-23 10:05 | Outpatient (REF) | payer MEDICARE, MEDICAID, SELFPAY ==
--- NOTE | ~2023-02-23 | XR_ITS ---
EXAMINATION: XR CHEST CLINICAL INFORMATION: Bronchitis. COMPARISON: None available. TECHNIQUE: 2 views of the chest were obtained. FINDINGS: The lungs are clear. The cardiomediastinal silhouette is normal in size. There is no pleural effusion or pneumothorax. No acute osseous abnormality. XR/XR chest 2V IMPRESSION: No acute cardiopulmonary findings.
[2023-02-23 11:11] LABS: MANUAL DIFF FLAG NO
[2023-02-23 11:13] LABS: Appearance Urine Clear; Color Urine Dark Yellow; Glucose Urine UA Negative (Negative); Leukocyte Esterase Urine Trace (Negative); Nitrite Urine Negative (Negative); UMIC TRIGGER UACC YES; Urine Blood Negative (Negative); Urine Ketones Negative (Negative); Urine Protein Trace mg/dL (Neg-Trace)
[2023-02-23 11:18] LABS: Bacteria Urine None Seen (None Seen); Hyaline Casts Urine 0-2 /LPF (0-2); RBC Urine 0-2 /HPF (0-2); Squamous Epithelial Cell Urine 0-2 /HPF (0-2); WBC Urine 0-5 /HPF (0-5)
[2023-02-23 11:18] LABS: Basophils Absolute Auto 0.1 X10*3/uL (0.0-0.2); Basophils Percent Auto 0.6 % (0-2); Eosinophils Absolute Auto 0.2 X10*3/uL (0.0-0.4); Hematocrit 44.2 % (42.0-52.0); Hemoglobin 15.1 g/dl (14.0-18.0); Imm Gran Abs Auto 0.01 X10*3/uL (0.00-0.03); Imm Gran Pct Auto 0.1 % (0.0-0.4); Lymphocytes Absolute Auto 3.3 X10*3/uL (1.2-4.9); Mean Corpuscular HGB Conc 34.2 g/dl (31.0-36.0); Mean Corpuscular Hemoglobin 31.3 pg (27.0-33.0); Mean Corpuscular Volume 91.7 fL (80.0-98.0); Mean Platelet Volume 10.6 fL (9.4-12.4); Monocytes Absolute Auto 0.8 X10*3/uL (0.1-1.2); Monocytes Percent Auto 10.3 % (2-11); Neutrophils Absolute Auto 3.6 x10*3/uL (2.0-8.3); Platelet Count 198 X10*3/uL (160-400); Red Blood Count 4.82 X10*6/uL (4.60-5.80); Red Cell Distribution Width 12.9 % (11.0-16.0); White Blood Count 8.1 X10*3/uL (4.8-10.8)
[2023-02-23 11:31] LABS: Estimated Average Glucose 105 mg/dL; Hemoglobin A1c % 5.3 %
[2023-02-23 11:45] LABS: Creatinine Urine 208.81 mg/dL; Microalbum/Creatinine Ratio Ur 30.6 ug/mg cr
[2023-02-23 11:48] LABS: Alanine Aminotransferase 53 U/L (0-40); Albumin Level 4.2 g/dL (3.5-5.0); Alkaline Phosphatase 78 U/L (39-117); Anion Gap 13 (12-20); Aspartate Amino Transferase 42 U/L (5-37); Bilirubin Total 0.9 mg/dL (0.0-1.0); Blood Urea Nitrogen 14 mg/dL (9-16); Calcium 10.4 mg/dL (8.4-10.2); Carbon Dioxide 27 mmol/L (22-29); Chloride 104 mmol/L (96-108); Cholesterol 147 mg/dL; Estimated Glomerular Filt Rate > 60; Glucose Fasting 97 mg/dL (60-99); HDL Cholesterol 34 mg/dL; LDL Cholesterol Calculated 93 mg/dl; Potassium 4.9 mmol/L (3.3-5.1); Sodium 139 mmol/L (135-145); Total Protein 8.5 g/dL (6.5-8.0); Triglycerides 104 mg/dL
[2023-02-23 12:00] LABS: Prostate Specific Antigen Scr 0.19 ng/mL (<0.05-4.0)
[2023-02-23 12:05] LABS: TSH reflex Free T4 2.72 uIU/mL (0.32-4.0)
== END 2023-02-23 10:06 | disposition home or self-care (01) ==
LOC: HO.HMGCX 10:05
PROVIDERS: Absent Provider Physician Assistant; PCP Nurse Practitioner Family; Visit Provider Nurse Practitioner Family
DX: Z12.5 Encounter for screening for malignant neoplasm of prostate (principal); J40 Bronchitis, not specified as acute or chronic; E11.9 Type 2 diabetes mellitus without complications
CPT/HCPCS: 36415; 71046; 80053; 80061; 81001; 82043; 83036; 84153; 84443; 85025

== ENCOUNTER 2023-04-05 17:07 | Outpatient (REF) | payer MEDICARE, MEDICAID, SELFPAY ==
[2023-04-05 17:48] LABS: Appearance Urine Clear; Color Urine Dark Yellow; Glucose Urine UA Negative (Negative); Leukocyte Esterase Urine Trace (Negative); Nitrite Urine Negative (Negative); PH 5.5 (5.0-9.0); Specific Gravity - Urine >= 1.030 (1.005-1.025); UMIC TRIGGER UACC YES; Urine Blood Negative (Negative); Urine Ketones Trace mg/dL (Negative); Urine Protein 30 (1+) mg/dL (Neg-Trace)
[2023-04-05 17:53] LABS: Bacteria Urine None Seen (None Seen); Hyaline Casts Urine 0-2 /LPF (0-2); RBC Urine 0-2 /HPF (0-2); Squamous Epithelial Cell Urine 0-2 /HPF (0-2); WBC Urine 0-5 /HPF (0-5)
[2023-04-05 18:25] LABS: Vitamin D 25-OH Total 51.7 ng/mL (>30)
[2023-04-08 11:29] LABS: Calcium (PTHI) 9.7 mg/dL (8.6-10.3); PTHI 29 pg/mL (16-77)
[2023-04-09 03:47] LABS: Calcium, Ionized 5.1 mg/dL (4.7-5.5)
== END 2023-04-05 17:08 | disposition home or self-care (01) ==
LOC: HO.LAB 17:07
PROVIDERS: Internal Medicine; PCP Nurse Practitioner Family; Visit Provider Nurse Practitioner Family
DX: E83.52 Hypercalcemia (principal); E11.9 Type 2 diabetes mellitus without complications
CPT/HCPCS: 36415; 81001; 82306; 82330; 83970

== ENCOUNTER 2023-07-23 09:34 | Outpatient (AMB) | payer MEDICARE, MEDICAID, SELFPAY ==
--- NOTE | 2023-07-23 07:12 | MHC.PC.OV ---
Intake Visit Reasons: Follow up Allergies acetaminophen [Tylenol] Adverse Reaction (Unknown, Verified 06/12/23 13:09) DUE TO LIVER DISEASE dextromethorphan [From NyQuil] Adverse Reaction (Unknown, Verified 06/12/23 13:09) HX OF OVERDOSE doxylamine [From NyQuil] Adverse Reaction (Unknown, Verified 06/12/23 13:09) HX OF OVERDOSE pseudoephedrine [From NyQuil] Adverse Reaction (Unknown, Verified 06/12/23 13:09) HX OF OVERDOSE Tobacco use date assessed: 06/12/23 HPI Follow up HPI Details Pt is a diabetic, on an TORSTEN and a statin. Last A1C was 5.3, due for repeat. Microalbumin is up to date. Denies polyuria, polydipsia, does report intermittent neuropathy to his big toe (pt believes this is due to a bunion). Pt denies any signs and symptoms of hypoglycemia and does know how to correct it. Pt reports that his blood sugar has been under 100. Eye exam is up to date. Pt reports increased anxiety. Will increase buspirone from 10mg bid to 15mg bid. Denies any SI and HI. [facility] Medical History Diabetes Night terror PTSD (post-traumatic stress disorder) Migraines Fatty liver HTN (hypertension) Suicidal ideation Depression with anxiety Surgical History Hx of nasal septoplasty History of esophagogastroduodenoscopy (EGD) H/O colonoscopy Hx of cholecystectomy History of appendectomy Hx of right knee surgery History of shoulder surgery Hx of left knee surgery Family History Father No problems noted. Mother No problems noted. Maternal Grandfather Cancer Other Mental health disorder Social History Housing: House Alcohol intake: never Patient Tobacco Use Status: Never used Tobacco e-Cigarette/Vaping Use: Never Used Second Hand Smoke Exposure: Yes service: No Current occupational status: disabled Cognitive needs: No Hearing needs: No Vision needs: Yes Questionnaire Thrive Questionnaire Date Thrive assessed: 06/12/23 MAGUI-7 AMB Questionnaire MAGUI-7 Date MAGUI - 7 assessed: 11/22/21 Source: Developed by Drs. Renny Yepez, Katiuska Hernández, Pradeep Banuelos and colleagues, with an educational arminda from [email or web address]. Review of Systems Const Reports as per HPI Physical exam (Primary Care) Tobacco/Smoking Status: Tobacco use Status Tobacco use date assessed 06/12/23 07/23/23 07:18 Patient Tobacco Use Status Never used Tobacco 07/23/23 07:18 e-Cigarette/Vaping Use Never Used 07/23/23 07:18 Thrive Assessment: Date of Thrive Assessment Date Thrive assessed 06/12/23 07/23/23 07:18 Const General: cooperative Orientation/consciousness: patient oriented x3 Neuro General: patient oriented x3 Psych Appearance: grossly normal Mental Status: mental status grossly normal Speech and movement: Clear speech present Affect: normal affect Attitude: cooperative Thought process: Normal thought process present Thought content: Normal thought content present Insight: Good insight present (Psych) Judgement: Good judgement present (Psych) Telehealth Telehealth Location of provider rendering services: practice address Location of patient: address on file Patient Identification confirmed using: Name, : Yes Telehealth method: video Patient verbally consented to treatment: Yes Patient verbally consented to billing insurance company: Yes Patient informed of any privacy concerns related to visit: Yes Minutes spent on Phone/Video with Pt.: 10 Assessment and Plan Assessment & Plan (1) Diabetes: Code(s): E11.9 - Type 2 diabetes mellitus without complications Plan: Labs ordered (2) Anxiety: Code(s): F41.9 - Anxiety disorder, unspecified Plan: increasing buspirone Plan The patient agreed to the use of a nurses medical assistants phlebotomists for this encounter. Scribed for DOUGLAS Joiner by Sharron Trevino nurses medical assistants phlebotomists, on 07/23/2023 at 07:10 EST. Orders: Orders Complete Blood Count Auto Diff Today E11.9 - Type 2 diabetes mellitus without complications Comprehensive [place]. Panel Fast Today E11.9 - Type 2 diabetes mellitus without complications UA CC w/rflx Micro + Cult Today E11.9 - Type 2 diabetes mellitus without complications TSH reflex Free T4 Today E11.9 - Type 2 diabetes mellitus without complications Lipid Panel Today E11.9 - Type 2 diabetes mellitus without complications Hemoglobin A1c Today E11.9 - Type 2 diabetes mellitus without complications Medications: Changed From sennosides (senna) 17.2 mg (2 x 8.6 mg) PO BEDTIME 30 days 60 caps 1RF constipation K59.00 - Constipation, unspecified To sennosides (senna) 17.2 mg (2 x 8.6 mg) PO BEDTIME 90 days 180 caps 1RF constipation K59.00 - Constipation, unspecified From buspirone 10 mg PO BID 90 days 180 tabs 1RF To buspirone 15 mg PO BID 90 days 180 tabs 1RF Coding Level of Care Code Tele Est Pt Level 3 (70510) Diagnoses Diabetes E11.9 Anxiety F41.9
== END 2023-07-23 12:18 | disposition home or self-care (01) ==
LOC: HO.HMGC 09:34
PROVIDERS: PCP Nurse Practitioner Family; Visit Provider Nurse Practitioner Family
DX: E11.9 Type 2 diabetes mellitus without complications (principal); F41.9 Anxiety disorder, unspecified
CPT/HCPCS: 99213

== ENCOUNTER 2023-08-21 13:11 | Outpatient (AMB) | payer MEDICARE, MEDICAID, SELFPAY ==
[2023-08-21 13:27] VITALS: BP 100/60; PULSE 74; O2SAT 98
--- NOTE | 2023-08-21 13:27 | A.OFFPC_ITS ---
Vital Signs 08/21/23 13:27 Weight 165 lb BP 100/60 Blood Pressure Location Rt brachial Position Sitting Pulse 74 Pulse Source Pulse Oximeter Pulse Oximetry (%) 98 Oxygen Delivery Method Room Air Intake Visit Reasons: left hand and arm pain x 3 weeks Intake Note: Patient here for pain in left hand pain/swelling that radiate to the elbow which has been bothersome for about 3 weeks. Allergies acetaminophen [Tylenol] Adverse Reaction (Unknown, Verified 08/21/23 13:28) DUE TO LIVER DISEASE dextromethorphan [From NyQuil] Adverse Reaction (Unknown, Verified 08/21/23 13:28) HX OF OVERDOSE doxylamine [From NyQuil] Adverse Reaction (Unknown, Verified 08/21/23 13:28) HX OF OVERDOSE pseudoephedrine [From NyQuil] Adverse Reaction (Unknown, Verified 08/21/23 13:28) HX OF OVERDOSE Tobacco use date assessed: 08/21/23 HPI left hand and arm pain x 3 weeks HPI Details Pt c/o left medial and lateral elbow pain. He reports swelling as well. ? lateral and medial epicondylitis. Recommended tennis elbow brace and OTC NSAIDs. Denies fever, chills, and dizziness. [facility] Medical History Diabetes Night terror PTSD (post-traumatic stress disorder) Migraines Fatty liver HTN (hypertension) Suicidal ideation Depression with anxiety Surgical History Hx of nasal septoplasty History of esophagogastroduodenoscopy (EGD) H/O colonoscopy Hx of cholecystectomy History of appendectomy Hx of right knee surgery History of shoulder surgery Hx of left knee surgery Family History Father No problems noted. Mother No problems noted. Maternal Grandfather Cancer Other Mental health disorder Social History Housing: House Alcohol intake: never Patient Tobacco Use Status: Never used Tobacco e-Cigarette/Vaping Use: Never Used Second Hand Smoke Exposure: Yes service: No Current occupational status: disabled Cognitive needs: No Hearing needs: No Vision needs: Yes Questionnaire Thrive Questionnaire Date Thrive assessed: 06/12/23 MAGUI-7 AMB Questionnaire MAGUI-7 Date MAGUI - 7 assessed: 11/22/21 Source: Developed by Drs. Renny Yepez, Katiuska Hernández, Pradeep Banuelos and colleagues, with an educational arminda from [employer]. Review of Systems Const Reports as per HPI Physical exam (Primary Care) Vital Signs: Last Vital Signs Pulse 74 08/21/23 13:27 BP 100/60 08/21/23 13:27 Pulse Ox 98 08/21/23 13:27 Oxygen Delivery Method Room Air 08/21/23 13:27 Tobacco/Smoking Status: Tobacco use Status Tobacco use date assessed 08/21/23 08/21/23 13:29 Patient Tobacco Use Status Never used Tobacco 08/21/23 13:29 e-Cigarette/Vaping Use Never Used 08/21/23 13:29 Thrive Assessment: Date of Thrive Assessment Date Thrive assessed 06/12/23 08/21/23 13:29 Const General: cooperative Orientation/consciousness: patient oriented x3 Resp Effort & Inspection: normal respiratory effort Auscultation: clear to auscultation bilaterally Cardio Rate: regular rate Rhythm: regular rhythm Heart sounds: S1 normal heart sound present and S2 normal heart sound present Neuro General: patient oriented x3 Extrem Other: with LUE extended with wrist extension against resistance tenderness to lateral elbow, with wrist flexion against resistance tenderness noted to medial elbow Psych Appearance: grossly normal Mental Status: mental status grossly normal Speech and movement: Normal speech and movement present Affect: normal affect Attitude: cooperative Thought process: Normal thought process present Thought content: Normal thought content present Insight: Good insight present (Psych) Judgement: Good judgement present (Psych) Assessment and Plan Assessment & Plan (1) Lateral epicondylitis of elbow: Code(s): M77.10 - Lateral epicondylitis, unspecified elbow Plan: Recommended tennis elbow brace and OTC NSAIDs (2) Medial epicondylitis: Code(s): M77.00 - Medial epicondylitis, unspecified elbow Plan: Recommended tennis elbow brace and OTC NSAIDs Plan The patient agreed to the use of a biomedical analytical scientist for this encounter. Scribed for DOUGLAS Joiner by norah Campbell scribe, on 08/21/2023 at 13:30 EST. Coding Level of Care Code Est Pt Level 3 (64387) Diagnoses Lateral epicondylitis of elbow M77.10 Medial epicondylitis M77.00
== END 2023-08-21 14:01 | disposition home or self-care (01) ==
PROVIDERS: PCP Nurse Practitioner Family; Visit Provider Nurse Practitioner Family
DX: M77.12 Lateral epicondylitis, left elbow (principal); M77.02 Medial epicondylitis, left elbow
CPT/HCPCS: 99213

== ENCOUNTER 2023-11-07 09:55 | Outpatient (REF) | payer MEDICARE, MEDICAID, SELFPAY ==
--- NOTE | ~2023-11-07 | XR_ITS ---
EXAMINATION: XR ELBOW, LEFT CLINICAL INFORMATION: Lateral epicondylitis, unspecified elbow COMPARISON: None available. TECHNIQUE: AP, lateral, and oblique views of the left elbow. FINDINGS: The bones are intact. There is mild soft tissue swelling over the olecranon. No fracture or joint effusion. Alignment is anatomic. Joint spaces are maintained. XR/XR elbow LT min 3V IMPRESSION: No bony abnormality.
[2023-11-07 13:16] LABS: MANUAL DIFF FLAG NO
[2023-11-07 13:25] LABS: Basophils Percent Auto 0.6 % (0-2); Eosinophils Absolute Auto 0.2 X10*3/uL (0.0-0.4); Eosinophils Percent Auto 2.7 % (0-4); Hematocrit 41.9 % (42.0-52.0); Hemoglobin 14.4 g/dl (14.0-18.0); Imm Gran Abs Auto 0.01 X10*3/uL (0.00-0.03); Imm Gran Pct Auto 0.2 % (0.0-0.4); Lymphocytes Absolute Auto 3.2 X10*3/uL (1.2-4.9); Lymphocytes Percent Auto 50.7 % (20-40); Mean Corpuscular HGB Conc 34.4 g/dl (31.0-36.0); Mean Corpuscular Volume 90.3 fL (80.0-98.0); Mean Platelet Volume 10.8 fL (9.4-12.4); Monocytes Absolute Auto 0.7 X10*3/uL (0.1-1.2); Monocytes Percent Auto 11.7 % (2-11); Neutrophils Absolute Auto 2.2 x10*3/uL (2.0-8.3); Neutrophils Percent Auto 34.1 % (45-73); Platelet Count 180 X10*3/uL (160-400); Red Blood Count 4.64 X10*6/uL (4.60-5.80); Red Cell Distribution Width 12.7 % (11.0-16.0); White Blood Count 6.3 X10*3/uL (4.8-10.8)
[2023-11-07 13:53] LABS: Appearance Urine Clear; Color Urine Yellow; Glucose Urine UA Negative (Negative); Leukocyte Esterase Urine Negative (Negative); Nitrite Urine Negative (Negative); PH 6.5 (5.0-9.0); Urine Blood Negative (Negative); Urine Ketones Negative (Negative); Urine Protein Negative (Neg-Trace)
[2023-11-07 13:55] LABS: Alanine Aminotransferase 34 U/L (0-40); Albumin Level 4.1 g/dL (3.5-5.0); Alkaline Phosphatase 69 U/L (39-117); Anion Gap 11 (12-20); Aspartate Amino Transferase 34 U/L (5-37); Bilirubin Total 0.8 mg/dL (0.0-1.0); Blood Urea Nitrogen 14 mg/dL (9-16); Calcium 9.6 mg/dL (8.4-10.2); Carbon Dioxide 27 mmol/L (22-29); Chloride 105 mmol/L (96-108); Cholesterol 169 mg/dL (<200); Estimated Glomerular Filt Rate > 60; Glucose Fasting 88 mg/dL (60-99); HDL Cholesterol 37 mg/dL (>40); LDL Cholesterol Calculated 108 mg/dL (<100); Potassium 4.5 mmol/L (3.3-5.1); Sodium 138 mmol/L (135-145); Total Protein 8.1 g/dL (6.5-8.0); Triglycerides 123 mg/dL (<150)
[2023-11-07 13:56] LABS: Estimated Average Glucose 105 mg/dL; Hemoglobin A1c % 5.3 % (<6.0)
[2023-11-07 14:14] LABS: TSH reflex Free T4 3.99 uIU/mL (0.32-4.0)
== END 2023-11-07 09:56 | disposition home or self-care (01) ==
LOC: HO.HMGCX 09:55
PROVIDERS: PCP Nurse Practitioner Family; Visit Provider Nurse Practitioner Family
DX: M77.12 Lateral epicondylitis, left elbow (principal); E11.9 Type 2 diabetes mellitus without complications
CPT/HCPCS: 36415; 73080; 80053; 80061; 81003; 83036; 84443; 85025

== ENCOUNTER 2024-01-07 08:45 | Outpatient (AMB) | payer MEDICARE, MEDICAID, SELFPAY ==
[2024-01-07 09:22] VITALS: BP 102/60; PULSE 74; O2SAT 94; BMI 28.0
--- NOTE | 2024-01-07 09:22 | MHC.PC.OV ---
Vital Signs 01/07/24 09:22 Height 5 ft 3 in Weight 158 lb BMI 28.0 BP 102/60 Blood Pressure Location Rt brachial Position Sitting Pulse 74 Pulse Source Pulse Oximeter Pulse Oximetry (%) 94 Oxygen Delivery Method Room Air Intake Visit Reasons: PE - see comments Intake Note: pt is here for physical exam Regional Guide Required: No Allergies acetaminophen [Tylenol] Adverse Reaction (Unknown, Verified 01/07/24 09:52) DUE TO LIVER DISEASE dextromethorphan [From NyQuil] Adverse Reaction (Unknown, Verified 01/07/24 09:52) HX OF OVERDOSE doxylamine [From NyQuil] Adverse Reaction (Unknown, Verified 01/07/24 09:52) HX OF OVERDOSE pseudoephedrine [From NyQuil] Adverse Reaction (Unknown, Verified 01/07/24 09:52) HX OF OVERDOSE Medication List - Last Reconciled 01/07/24 by Hermes Stewart, PHYSICAL METEOROLOGIST- albuterol sulfate 90 mcg/actuation 1 inh inhalation QID PRN 30 days alcohol swabs (Alcohol Pads) 1 pad topical BID amitriptyline 50 mg PO DAILY 90 days blood sugar diagnostic (ONOFFMIX (?)uch Verio test strips) use to check morning fasting sugars, and randomly one other time throughout the day blood-glucose meter (Human[employer] PerformanceTouch Verio Meter) use to check morning fasting sugars, and randomly one other time throughout the day buspirone 15 mg PO BID 90 days cetirizine 10 mg PO DAILY 90 days fluticasone propionate 50 mcg/actuation (Flonase Allergy Relief) 1 spray intranasal DAILY FreeStyle Ampar[place] 2 [place] (flash glucose scanning reader) tid testing NS FreeStyle Amparo 2 Sensor (flash glucose sensor) TID testing NS hydroxyzine HCl 25 mg PO DAILY PRN lancets Freestyle lancets Use to check morning fasting sugars, and randomly one other time throughout the day lancets (HumanCentric PerformanceTouch Delica Lancets) Use to check morning fasting sugars, and randomly one other time lisinopril 2.5 mg PO DAILY 90 days magnesium oxide 400 mg PO BEDTIME PRN montelukast (Singulair) 10 mg PO BEDTIME pen needle, diabetic (BD Ultra-Fine Aliya Pen Needle) once a week pravastatin 20 mg (1/2 x 40 mg) PO DAILY propranolol 20 mg PO BID semaglutide (Ozempic) 1 mg (0.75 mL) subcut QWEEK sennosides (senna) 17.2 mg (2 x 8.6 mg) PO BEDTIME 90 days sumatriptan succinate 50 mg PO Q2-4H PRN 30 days tizanidine 4 mg PO BEDTIME PRN 30 days Tobacco use date assessed: 08/21/23 Dental Screening Dental Screen Date: 01/07/24 Did you have a dental visit in the last 12 months?: Yes Did you have a dental problem in the last 6 months where you did not have access to dental care?: No Was dental information given to patient?: Patient has dentist HPI PE - see comments HPI Details Pt is here for a PE. Will order labs. Due for colon screen, will reach out to GI. Due for PSA in the near future, will order. Pt reports some nocturia, denies dribbling with urination and weak stream. Pt is a diabetic, on an TORSTEN and a statin, Last A1C was 5.3. Due for microalbumin in the near future, will order. Denies polyuria, polydipsia, and neuropathy. Pt denies any signs and symptoms of hypoglycemia and does know how to correct it. Due for eye exam, will refer. Pt c/o lower back pain. He does report radicular symptoms down his RLE. Will order XR. [facility] Medical History Diabetes Night terror PTSD (post-traumatic stress disorder) Migraines Fatty liver HTN (hypertension) Suicidal ideation Depression with anxiety Surgical History Hx of nasal septoplasty History of esophagogastroduodenoscopy (EGD) H/O colonoscopy Hx of cholecystectomy History of appendectomy Hx of right knee surgery History of shoulder surgery Hx of left knee surgery Family History Father No problems noted. Mother No problems noted. Maternal Grandfather Cancer Other Mental health disorder Social History Housing: House Alcohol intake: never Patient Tobacco Use Status: Never used Tobacco e-Cigarette/Vaping Use: Never Used Second Hand Smoke Exposure: Yes service: No Current occupational status: disabled Cognitive needs: No Hearing needs: No Vision needs: Yes Questionnaire PHQ-9 Over the last 2 weeks, how often have you been bothered by any of the following problems? 1. Little interest or pleasure in doing things: more than half the days 2. Feeling down, depressed, or hopeless: more than half the days 3. Trouble falling or staying asleep, or sleeping too much: nearly every day 4. Feeling tired or having little energy: nearly every day 5. Poor appetite or overeating: more than half the days 6. Feeling bad about yourself - or that you are a failure or have let yourself or your family down: more than half the days 7. Trouble concentrating on things, such as reading the newspaper or watching television: more than half the days 8. Moving or speaking so slowly that other people could have noticed. Or the opposite - being so fidgety or restless that you have been moving around a lot more than usual: more than half the days 9. Thoughts that you would be better off or of hurting yourself in some way: not at all Total score: 18 Depression Screening Interpretation: Positive (denies any si or hi) Depression Screening Follow-up: Existing condition and Declines treatment Depression Screening Done: Yes 58012 - PHQ-9 Billing: Yes Source: Developed by Drs. Renny Yepez, Katiuska Hernández, Pradeep Banuelos and colleagues, with an educational arminda from [employer]. Thrive Questionnaire Date Thrive assessed: 01/07/24 I am a: Patient What is your living situation today?: I have a place to live, but I am worried about losing it in the future Within the past 12 months, did the food you bought not last and you didn't have the money to get more?: Often true Within the past 12 months, did you worry whether your food would run out before you got money to buy more?: Often true Do you have trouble paying for medicines?: No Do you have trouble getting transportation to medical appointments?: No Do you have trouble paying your heating and electricity bill?: No Do you have trouble taking care of your child, family member or friend?: No Do you have trouble with day-to-day activities such as bathing, preparing meals, shopping, managing finances, etc.?: No Are you currently unemployed and looking for a job?: No Are you interested in more education?: No Please select the resources that you would like help with: Housing/Group Home, Food and Utilities Currently or been in a relationship where the following occur: no concerns reported THRIVE Score: 3 AUDIT C Alcohol Use Questionnaire (AUDIT-C) 1. How often do you have a drink containing alcohol?: Never 3. How often do you have six or more drinks on one occasion?: Never Total Score: 0 MAGUI-7 AMB Questionnaire MAGUI-7 Date MAGUI - 7 assessed: 01/07/24 Feeling nervous, anxious, or on edge: 3 = Nearly every day Not being able to stop or control worryin = More than half the days Worrying too much about different things: 3 = Nearly every day Trouble relaxin = More than half the days Being so restless that it is hard to sit still: 2 = More than half the days Becoming easily annoyed or irritable: 2 = More than half the days Feeling afraid as if something awful might happen: 2 = More than half the days Total MAGUI-7 score (0-4 normal; 5-9 mild; 10-14 moderate; 15-21 severe): 16 Source: Developed by Drs. Renny Yepez, Katiuska Hernández, Pradeep Banuelos and colleagues, with an educational arminda from [employer]. MAGUI-7 Assessment Billing MAGUI-7 Assessment Tool: MAGUI-7 Assessment 23310 Review of Systems Const Denies chills and Denies fever(s) Eyes Denies blurry vision ENT Denies vertigo, Denies dizziness and Denies sore throat Card Denies chest pain at rest, Denies chest pain with activity, Denies diaphoresis, Denies dyspnea and Denies dyspnea on exertion Resp Denies cough, Denies dyspnea, Denies dyspnea on exertion and Denies wheezing GI Denies abdominal pain, Denies melena, Denies hematochezia, Denies constipation, Denies diarrhea and Denies loose stools Denies hematuria Musc Denies numbness and Denies tingling Skin/Breast Denies lesions Neuro Denies vertigo, Denies dizziness, Denies numbness and Denies tingling Psych Denies anxiety, Denies depression, Denies homicidal ideation, Denies suicidal ideation and Denies other (substance abuse) Aller/Immun Denies wheezing Physical exam (Primary Care) Vital Signs: Last Vital Signs Pulse 74 01/07/24 09:22 BP 102/60 01/07/24 09:22 Pulse Ox 94 01/07/24 09:22 Oxygen Delivery Method Room Air 01/07/24 09:22 BMI result Body Mass Index 28.0 Tobacco/Smoking Status: Tobacco use Status Tobacco use date assessed 08/21/23 01/07/24 09:26 Patient Tobacco Use Status Never used Tobacco 01/07/24 09:26 e-Cigarette/Vaping Use Never Used 01/07/24 09:26 PHQ-9: PHQ-9 Score PHQ-9: Total score 18 01/07/24 09:26 Depression Screening Interpretation: Positive (denies any si or hi) Depression Screening Follow-up: Existing condition and Declines treatment Thrive Assessment: Date of Thrive Assessment Date Thrive assessed 01/07/24 01/07/24 09:26 Currently or been in a relationship where the following occur: no concerns reported Const General: cooperative Nutritional Appearance: well nourished Orientation/consciousness: patient oriented x3 HENMT Head: Yes normal to inspection, Yes normocephalic and Yes atraumatic Ears: TM's normal bilaterally Eyes General: appearance normal, both eyes and all related structures Alignment and Position: alignment normal and position normal Neck Neck: Yes normal visual inspection and Yes no lymphadenopathy Thyroid: Thyroid normal Resp Effort & Inspection: normal respiratory effort Auscultation: clear to auscultation bilaterally Cardio Rate: regular rate Rhythm: regular rhythm Heart sounds: S1 normal heart sound present, S2 normal heart sound present and no murmurs GI Palpation (GI): Soft to palpation and nontender Auscultation: normal bowel sounds Male General Exam: Yes normal external exam Penis: normal penis Scrotum: scrotum normal, testes descended bilaterally and no inguinal hernias Testes: no testicular mass Back/Spine/Pelvis Other: no pain with heel and toe walking, no pain with BLE straight leg raises and bilat knee to chest raises Skin Rashes: no rashes Neuro General: patient oriented x3, moves all extremities, no focal motor deficits and deep tendon reflexes 2+ bilaterally Romberg Test: Negative Extrem Other: bilat feet: + sensation with use of monofilament, feet intact Psych Appearance: grossly normal Mental Status: mental status grossly normal Speech and movement: Normal speech and movement present Affect: normal affect Attitude: cooperative Thought process: Normal thought process present Thought content: Normal thought content present Insight: Good insight present (Psych) Judgement: Good judgement present (Psych) Assessment and Plan Assessment & Plan (1) Diabetes: Code(s): E11.9 - Type 2 diabetes mellitus without complications Plan: Labs ordered (2) Encounter for routine adult physical exam with abnormal findings: Code(s): Z00.01 - Encounter for general adult medical examination with abnormal findings Plan: Labs ordered (3) Positive screening for depression on 9-item Patient Health Questionnaire (PHQ-9): Code(s): Z13.31 - Encounter for screening for depression Plan: refuses therapist currently, denies any si or hi (4) Screening PSA (prostate specific antigen): Code(s): Z12.5 - Encounter for screening for malignant neoplasm of prostate Plan: PSA ordered (5) Lower back pain: Code(s): M54.50 - Low back pain, unspecified Plan: XR (6) Screening for HIV (human immunodeficiency virus): Code(s): Z11.4 - Encounter for screening for human immunodeficiency virus [HIV] Plan: pt requested Plan The patient agreed to the use of a medical data entry clerk for this encounter. Scribed for SARA Joiner- by Sharron Trevino medical data entry clerk, on 01/07/2024 at 09:55 EST. Orders: Orders Microalbumin, Random (w Creat) Today E11.9 - Type 2 diabetes mellitus without complications, Z00.01 - Encounter for general adult medical examination with abnormal findings XR lumbar spine 2-3V Today M54.50 - Low back pain, unspecified HIV Ab/Ag Today Z11.4 - Encounter for screening for human immunodeficiency virus [HIV] Complete Blood Count Auto Diff Today E11.9 - Type 2 diabetes mellitus without complications, Z00.01 - Encounter for general adult medical examination with abnormal findings Comprehensive [place]. Panel Fast Today E11.9 - Type 2 diabetes mellitus without complications, Z00.01 - Encounter for general adult medical examination with abnormal findings TSH reflex Free T4 Today E11.9 - Type 2 diabetes mellitus without complications, Z00.01 - Encounter for general adult medical examination with abnormal findings UA CC w/rflx Micro + Cult Today E11.9 - Type 2 diabetes mellitus without complications, Z00.01 - Encounter for general adult medical examination with abnormal findings Lipid Panel Today E11.9 - Type 2 diabetes mellitus without complications, Z00.01 - Encounter for general adult medical examination with abnormal findings Prostate Specific Antigen Scr Today Z12.5 - Encounter for screening for malignant neoplasm of prostate Referrals Ophthalmology Referral E11.9 - Type 2 diabetes mellitus without complications Coding Level of Care Code Est Pt Prev Care 40-64y(84025) Diagnoses Diabetes E11.9 Encounter for routine adult physical exam with abnormal findings Z00.01 Positive screening for depression on 9-item Patient Health Questionnaire (PHQ-9) Z13.31 Screening PSA (prostate specific antigen) Z12.5 Lower back pain M54.50 Screening for HIV (human immunodeficiency virus) Z11.4 Additional Codes MAGUI-7 Assessment Billing - MAGUI-7 Assessment Tool: MAGUI-7 Assessment 53782 ([id number])
== END 2024-01-07 10:10 | disposition home or self-care (01) ==
PROVIDERS: Visit Provider Nurse Practitioner Family
DX: E11.9 Type 2 diabetes mellitus without complications (principal); Z00.01 Encounter for general adult medical examination with abnormal findings; Z13.31 Encounter for screening for depression; Z12.5 Encounter for screening for malignant neoplasm of prostate; M54.50 Low back pain, unspecified; Z11.4 Encounter for screening for human immunodeficiency virus [HIV]
CPT/HCPCS: 99213; 99396

== ENCOUNTER 2024-01-29 08:36 | Outpatient (REF) | payer MEDICARE, SELFPAY ==
[2024-01-29 08:55] LABS: MANUAL DIFF FLAG NO
[2024-01-29 09:11] LABS: Basophils Absolute Auto 0.1 X10*3/uL (0.0-0.2); Basophils Percent Auto 0.8 % (0-2); Eosinophils Absolute Auto 0.2 X10*3/uL (0.0-0.4); Eosinophils Percent Auto 2.8 % (0-4); Hematocrit 39.3 % (42.0-52.0); Hemoglobin 13.4 g/dl (14.0-18.0); Imm Gran Abs Auto 0.02 X10*3/uL (0.00-0.03); Imm Gran Pct Auto 0.3 % (0.0-0.4); Lymphocytes Absolute Auto 2.8 X10*3/uL (1.2-4.9); Lymphocytes Percent Auto 45.5 % (20-40); Mean Corpuscular HGB Conc 34.1 g/dl (31.0-36.0); Mean Corpuscular Hemoglobin 31.1 pg (27.0-33.0); Mean Corpuscular Volume 91.2 fL (80.0-98.0); Mean Platelet Volume 10.1 fL (9.4-12.4); Monocytes Absolute Auto 0.8 X10*3/uL (0.1-1.2); Monocytes Percent Auto 12.5 % (2-11); Neutrophils Absolute Auto 2.3 x10*3/uL (2.0-8.3); Neutrophils Percent Auto 38.1 % (45-73); Platelet Count 180 X10*3/uL (160-400); Red Blood Count 4.31 X10*6/uL (4.60-5.80); Red Cell Distribution Width 12.5 % (11.0-16.0); White Blood Count 6.1 X10*3/uL (4.8-10.8)
[2024-01-29 09:24] LABS: Appearance Urine Clear; Color Urine Dark Yellow; Glucose Urine UA Negative (Negative); Leukocyte Esterase Urine Negative (Negative); Nitrite Urine Negative (Negative); PH 5.5 (5.0-9.0); Urine Blood Negative (Negative); Urine Ketones Trace mg/dL (Negative); Urine Protein Negative (Neg-Trace)
[2024-01-29 10:06] LABS: Alanine Aminotransferase 24 U/L (0-40); Alkaline Phosphatase 87 U/L (39-117); Anion Gap 11 (12-20); Aspartate Amino Transferase 26 U/L (5-37); Bilirubin Total 0.7 mg/dL (0.0-1.0); Blood Urea Nitrogen 14 mg/dL (9-16); Calcium 9.2 mg/dL (8.4-10.2); Carbon Dioxide 24 mmol/L (22-29); Chloride 106 mmol/L (96-108); Cholesterol 154 mg/dL (<200); Estimated Glomerular Filt Rate > 60; Glucose Fasting 95 mg/dL (60-99); HDL Cholesterol 37 mg/dL (>40); LDL Cholesterol Calculated 98 mg/dL (<100); Potassium 4.1 mmol/L (3.3-5.1); Sodium 137 mmol/L (135-145); Total Protein 8.3 g/dL (6.5-8.0); Triglycerides 98 mg/dL (<150)
[2024-01-29 10:16] LABS: HIV AB/AG Nonreactive (Nonreactive); HIV Num 1 0.05 S/CO (0.00-0.99)
[2024-01-29 10:18] LABS: Prostate Specific Antigen Scr 0.25 ng/mL (<0.05-4.0)
[2024-01-29 10:22] LABS: TSH reflex Free T4 3.72 uIU/mL (0.32-4.0)
[2024-01-29 11:15] LABS: Creatinine Urine 195.33 mg/dL; Microalbum/Creatinine Ratio Ur 11.2 ug/mg cr (<30)
== END 2024-01-29 08:37 | disposition home or self-care (01) ==
LOC: HO.LAB 08:36
PROVIDERS: PCP Nurse Practitioner Family; Visit Provider Nurse Practitioner Family
DX: Z01.818 Encounter for other preprocedural examination (principal); K59.00 Constipation, unspecified; Z00.01 Encounter for general adult medical examination with abnormal findings; E11.9 Type 2 diabetes mellitus without complications; Z11.4 Encounter for screening for human immunodeficiency virus [HIV]; Z12.5 Encounter for screening for malignant neoplasm of prostate
CPT/HCPCS: 36415; 80053; 80061; 81003; 82043; 82570; 84153; 84443; 85025; 87389; 99212

== ENCOUNTER 2024-01-29 09:11 | Outpatient (AMB) | payer MEDICARE, MEDICAID, SELFPAY ==
[2024-01-29 09:14] VITALS: BP 116/77; PULSE 72; BMI 27.6
--- NOTE | 2024-01-29 09:14 | MHC.OFFVIS ---
Vital Signs 01/29/24 09:14 Height 5 ft 3 in Weight 155 lb 10.342 oz BMI 27.6 BP 116/77 Blood Pressure Location Rt brachial Position Sitting Pulse 72 Intake Visit Reasons: pre colonoscopy Intake Note: Marcial presents to in office today for pre colonoscopy consult. CC: Allergies acetaminophen [Tylenol] Adverse Reaction (Unknown, Verified 01/29/24 09:17) DUE TO LIVER DISEASE dextromethorphan [From NyQuil] Adverse Reaction (Unknown, Verified 01/29/24 09:17) HX OF OVERDOSE doxylamine [From NyQuil] Adverse Reaction (Unknown, Verified 01/29/24 09:17) HX OF OVERDOSE pseudoephedrine [From NyQuil] Adverse Reaction (Unknown, Verified 01/29/24 09:17) HX OF OVERDOSE HPI HPI pre colonoscopy: Details: Assessment & Plan (1) Screening for colon cancer: Code(s): Z12.11 - Encounter for screening for malignant neoplasm of colon Plan: He had a scope in 2006 that was normal with and EGD, which he thought was for his fatty liver. He suffers CIC which he controls with lactulose, BUT HE IS DIABETIC. I will send him some senna as he only moves his bowels about once a week. He has had some RB on the TT and a hx of roids. He has occasional nausea and stomach pain whens he has not moved his bowels. He will feel very drained when he does move his bowels. He denies any anesthesia or sedation problems. He denies any cardiac or respiratory problems. No ID problems There is no known FHX of CRC or polyps, but he does not know his family well. (2) Constipation: Code(s): K59.00 - Constipation, unspecified Plan: Will start senna, if this is successful can be continues by his PCP, Lactulose not the best option for WILLIAMSON and NIDDM r/t sugar load, and this is why his is not taking it regularly (michaels). Medications: New peg 3350-electrolytes 236-22.74-6.74 -5.86 gram (Golytely) until fecal effluent is clear; do not exceed a total volume of 2,000 mL 240 mL PO Q10M 1 day 4,000 mL 0RF Z12.11 - Encounter for screening for malignant neoplasm of colon sennosides (senna) 17.2 mg (2 x 8.6 mg) PO BEDTIME 30 days 60 caps 6RF constipation K59.00 - Constipation, unspecified COLONOSCOPY 12/18/22 Findings: Terminal Ileum-normal melanosis coli noted Cecum:normal Ascending Colon: 10 mm sessile polyp removed with cold snare, not retrieved Transverse Colon -normal Descending Colon:normal Sigmoid Colon:? 10 mm sessile polyp removed with cold forceps Rectum: Retroflexion with moderate sized internal hemorrhoids, grade I Anorectum - normal Impression and Post Procedure Diagnosis: melanosis coli polyps internal hemorrhoids Plan: High fiber diet leaflet Avoid straining at stool, epsom salts and sitz bath, anusol supps or cream Repeat Colonoscopy in 6-12 months due to poor right sided prep or earlier if clinically indicated BIOPSY .Received: 12/18/22 Diagnosis Colon, sigmoid, polypectomy: Hyperplastic mucosal polyp. LABS: Laboratory Tests 11/07/23 01/29/24 10:27 08:54 WBC 6.1 Hgb 13.4 L Hct 39.3 L MCV 91.2 MCH 31.1 Plt Count 180 Estimated GFR > 60 Total Bilirubin 0.8 AST 34 ALT 34 Alkaline Phosphatase 69 TSH 3.99 He also just had labs drawn today that are pending. TODAY'S VISIT This patient has been lost to follow-up since 08/2021 He is agreeable to repeat colonoscopy. He struggles with CIC despite taking senna and Lactolose and he has tried OTC bisacodyl, colace and Miralax w/o effect. Will progress to Linzess 145mcg and titrate to effect or s/e. He did not have any trouble with the prep, drank it all last time, He has pre existing CIC now compounded by Ozempic; which is not insusrmountable. He denies any anesthesia or sedation problems. He denies any cardiac or respiratory problems. No ID problems There is no known FHX of CRC or polyps, but he does not know his family well. [facility] Medical History (Updated 01/29/24 @ 09:38 by NATHALIE Moran) Bronchitis Weight loss Elevated fasting blood sugar Newly diagnosed diabetes Fatigue Screening for colon cancer Diabetes Screening for colon cancer Screening for STD (sexually transmitted disease) Screening PSA (prostate specific antigen) Encounter for routine adult physical exam with abnormal findings Screening for HIV (human immunodeficiency virus) Diabetes Night terror PTSD (post-traumatic stress disorder) Migraines Fatty liver HTN (hypertension) Suicidal ideation Depression with anxiety Surgical History (Updated 01/29/24 @ 09:38 by NATHALIE Moran) Hx of nasal septoplasty History of esophagogastroduodenoscopy (EGD) H/O colonoscopy Hx of cholecystectomy History of appendectomy Hx of right knee surgery History of shoulder surgery Hx of left knee surgery Family History Father No problems noted. Mother No problems noted. Maternal Grandfather Cancer Other Mental health disorder Social History Housing: House Alcohol intake: never Patient Tobacco Use Status: Never used Tobacco e-Cigarette/Vaping Use: Never Used Second Hand Smoke Exposure: Yes service: No Current occupational status: disabled Cognitive needs: No Hearing needs: No Vision needs: Yes Review of Systems Const Denies fatigue, Denies fever(s), Denies night sweats, Denies poor appetite and Denies weight loss Eyes Details: glasses Reports requires corrective lenses ENT Reports Normal hearing present, Denies dental pain, Denies dysphagia, Denies hearing loss, Denies mouth pain, Denies odynophagia, Denies throat swelling, Denies tongue swelling and Reports other (Dentition adequate) Card Reports no additional complaints Resp Reports no additional complaints GI Details: Denies abdominal pain, Denies melena, Denies bloating, Reports hematochezia, Reports constipation, Denies GI cramping, Denies dysphagia, Denies excessive flatus, Denies early satiety, Denies heartburn, Denies diarrhea, Denies nausea, Denies odynophagia, Denies vomiting and Denies hematemesis Musc Reports back pain Skin/Breast Denies pruritus, Denies lesions, Denies rash and Denies jaundice Neuro Reports Normal hearing present and Denies Abnormal speech present Endo Denies fatigue Aller/Immun Denies throat swelling and Denies tongue swelling Physical Exam Vital Signs: Last Vital Signs Pulse 72 01/29/24 09:14 BP 116/77 01/29/24 09:14 BMI result Body Mass Index 27.6 Const General: cooperative, no acute distress, well developed and well groomed Nutritional Appearance: average body habitus and well nourished Orientation/consciousness: oriented to person, oriented to place and oriented to time Limitations: No language barrier HEENT Head: Yes normocephalic and Yes atraumatic Eyes General: appearance normal, both eyes and all related structures Pupils: Equal, round and reactive pupils present Neck Neck: Yes normal visual inspection and Yes no lymphadenopathy Thyroid: Thyroid normal Resp Effort & Inspection: normal respiratory effort and able to speak in complete sentences Auscultation: clear to auscultation bilaterally Cardio Rate: regular rate Rhythm: regular rhythm Heart sounds: Normal, physiologic split S2 sound present Peripheral pulses: radial pulses present and posterior tibial pulses present GI Inspection: No distended and No Abdominal panniculus present Palpation (GI): Soft to palpation, nontender, no guarding, not rigid and No hepatosplenomegaly present Percussion: Yes normal to percussion Auscultation: normal bowel sounds Rectal Exam - Male: Yes deferred Skin General skin exam: no rashes or lesions noted, turgor normal, skin not dry, no jaundice, No spider nevi and no striae Rashes: no rashes Nails: normal Neuro General: oriented to person, oriented to place and oriented to time Cranial nerves: Yes Equal, round and reactive pupils present and Yes Normal hearing present Speech: No Abnormal speech present Extrem General: Yes normal to inspection, No clubbing, No cyanosis and No edema Psych Appearance: grossly normal and well kempt Mental Status: mental status grossly normal Speech and movement: Normal speech and movement present Affect: normal affect Attitude: cooperative Thought process: Normal thought process present and not confabulating Thought content: Normal thought content present Insight: Limited insight present (Psych) Judgement: Limited judgement present (Psych) Results Reviewed Results Reviewed: COLONOSCOPY 12/18/22 Findings: Terminal Ileum-normal melanosis coli noted Cecum:normal Ascending Colon: 10 mm sessile polyp removed with cold snare, not retrieved Transverse Colon -normal Descending Colon:normal Sigmoid Colon:? 10 mm sessile polyp removed with cold forceps Rectum: Retroflexion with moderate sized internal hemorrhoids, grade I Anorectum - normal Impression and Post Procedure Diagnosis: melanosis coli polyps internal hemorrhoids Plan: High fiber diet leaflet Avoid straining at stool, epsom salts and sitz bath, anusol supps or cream Repeat Colonoscopy in 6-12 months due to poor right sided prep or earlier if clinically indicated BIOPSY .Received: 12/18/22 Diagnosis Colon, sigmoid, polypectomy: Hyperplastic mucosal polyp. LABS: Laboratory Tests 11/07/23 01/29/24 10:27 08:54 WBC 6.1 Hgb 13.4 L Hct 39.3 L MCV 91.2 MCH 31.1 Plt Count 180 Estimated GFR > 60 Total Bilirubin 0.8 AST 34 ALT 34 Alkaline Phosphatase 69 TSH 3.99 He also just had labs drawn today that are pending. Assessment & Plan Assessment & Plan (1) Pre-op examination: Code(s): Z01.818 - Encounter for other preprocedural examination Category: Medical (2) Constipation: Code(s): K59.00 - Constipation, unspecified Category: Medical Plan This patient has been lost to follow-up since 08/2021 He is agreeable to repeat colonoscopy. He struggles with CIC despite taking senna and Lactolose and he has tried OTC bisacodyl, colace and Miralax w/o effect. Will progress to Linzess 145mcg and titrate to effect or s/e. He did not have any trouble with the prep, drank it all last time, He has pre existing CIC now compounded by Ozempic; which is not insusrmountable. He denies any anesthesia or sedation problems. He denies any cardiac or respiratory problems. No ID problems There is no known FHX of CRC or polyps, but he does not know his family well. Return office visit in 4 weeks to titrate the Linzess Orders: Orders Colonoscopy - GI Use Only Today Z01.818 - Encounter for other preprocedural examination Medications: New bisacodyl (Dulcolax (bisacodyl)) 10 mg (2 x 5 mg) PO BEDTIME 2 days 4 tabs 0RF linaclotide (Linzess) Take first thing in the morning with a full glass of water. 145 mcg PO QAM 30 caps 3RF K58.1 - Irritable bowel syndrome with constipation peg 3350-electrolytes 236-22.74-6.74 -5.86 gram (Golytely) until fecal effluent is clear; do not exceed a total volume of 2,000 mL 240 mL PO Q10M 1 day 4,000 mL 0RF Z12.11 - Encounter for screening for malignant neoplasm of colon Coding Level of Care Code Est Pt Level 4 (87156) Diagnoses Pre-op examination Z01.81 Constipation K59.00
== END 2024-01-29 09:34 | disposition home or self-care (01) ==
PROVIDERS: PCP Nurse Practitioner Family; Visit Provider Nurse Practitioner
DX: K59.00 Constipation, unspecified (principal); Z12.11 Encounter for screening for malignant neoplasm of colon
CPT/HCPCS: 99214

== ENCOUNTER 2024-01-29 09:39 | Outpatient (REF) | payer MEDICARE, SELFPAY ==
--- NOTE | ~2024-01-29 | XR_ITS ---
EXAMINATION: XR LUMBOSACRAL SPINE CLINICAL INFORMATION: Low back pain unspecified. COMPARISON: None available. TECHNIQUE: 3 views of the lumbosacral spine. FINDINGS: Diffuse demineralization. Atherosclerotic aortic calcifications. Facet arthritis in the lower lumbar spine. Slight dextroscoliosis of the lumbar spine. Minimal grade 1 retrolisthesis of L1 on L2 and L3 on L4. Mild multilevel lumbar spondylosis. XR/XR lumbar spine 2-3V IMPRESSION: Mild multilevel lumbar spondylosis.
== END 2024-01-29 09:40 | disposition home or self-care (01) ==
LOC: HO.XRAY 09:39
PROVIDERS: PCP Nurse Practitioner Family; Visit Provider Nurse Practitioner Family
DX: M54.50 Low back pain, unspecified (principal)
CPT/HCPCS: 72100

== ENCOUNTER 2024-02-27 09:25 | Outpatient (AMB) | payer MEDICARE, MEDICAID, SELFPAY ==
--- NOTE | 2024-02-27 09:28 | A.OFFVIS_ITS ---
Vital Signs 02/27/24 09:36 Height 5 ft 3 in Weight 157 lb 13.616 oz BMI 28.0 BP 95/72 Blood Pressure Location Rt brachial Position Sitting Pulse 75 Intake Visit Reasons: 3 week follow up Intake Note: Marcial returns to in office 3 weeks follow up of constipation. CC: Patient continues to have constipation and lower abdominal pain. Denies other GI symptoms today. [employer] Required: No Accompanied by: Self / Same As Patient Allergies acetaminophen [Tylenol] Adverse Reaction (Unknown, Verified 02/27/24 09:39) DUE TO LIVER DISEASE dextromethorphan [From NyQuil] Adverse Reaction (Unknown, Verified 02/27/24 09:39) HX OF OVERDOSE doxylamine [From NyQuil] Adverse Reaction (Unknown, Verified 02/27/24 09:39) HX OF OVERDOSE pseudoephedrine [From NyQuil] Adverse Reaction (Unknown, Verified 02/27/24 09:39) HX OF OVERDOSE HPI HPI 3 week follow up: Details: Assessment & Plan (1) Pre-op examination: Code(s): Z01.818 - Encounter for other preprocedural examination Category: Medical (2) Constipation: Code(s): K59.00 - Constipation, unspecified Category: Medical Plan This patient has been lost to follow-up since 08/2021 He is agreeable to repeat colonoscopy. He struggles with CIC despite taking senna and Lactolose and he has tried OTC bisacodyl, colace and Miralax w/o effect. Will progress to Linzess 145mcg and titrate to effect or s/e. He did not have any trouble with the prep, drank it all last time, He has pre existing CIC now compounded by Ozempic; which is not insusrmountable. He denies any anesthesia or sedation problems. He denies any cardiac or respiratory problems. No ID problems There is no known FHX of CRC or polyps, but he does not know his family well. Return office visit in 4 weeks to titrate the Linzess Orders: Orders Colonoscopy - GI Use Only Today Z01.818 - Encounter for other preprocedural examination Medications: New bisacodyl (Dulcolax (bisacodyl)) 10 mg (2 x 5 mg) PO BEDTIME 2 days 4 tabs 0RF linaclotide (Linzess) Take first thing in the morning with a full glass of water. 145 mcg PO QAM 30 caps 3RF K58.1 - Irritable bowel syndrome with constipation peg 3350-electrolytes 236-22.74-6.74 -5.86 gram (Golytely) until fecal effluent is clear; do not exceed a total volume of 2,000 mL 240 mL PO Q10M 1 day 4,000 mL 0RF Z12.11 - Encounter for screening for malignant neoplasm of colon LABS: Laboratory Tests 01/29/24 08:54 WBC 6.1 Hgb 13.4 L Hct 39.3 L MCV 91.2 Plt Count 180 Estimated GFR > 60 Total Bilirubin 0.7 AST 26 ALT 24 Alkaline Phosphatase 87 TSH 3.72 TODAY'S VISIT Patient has been lost to follow-up since 08/2021; he is due for repeat colonoscopy due to poor right-sided prep. I explained this to him and he is agreeable to having it scheduled even though were bit overdue. The polyp that was removed was hyperplastic which is good. The procedure was well tolerated. The results were explained and the patient is agreeable to the follow-up interval as stated. The bowel pattern has returned to normal. Education was provided to tell any 1st degree relatives about their findings to be sure that they are screened by age 45. Educated that they will be put on a recall list when it is time for their repeat scope but should they move out of state or away from the hospital they will need to remember along with their primary to repeat the procedure in a timely fashion to avoid any adverse complications. He denies any anesthesia or sedation problems. He denies any cardiac or respiratory problems. No ID problems There is no known FHX of CRC or polyps, but he does not know his family well. He is not moving his bowels well with Linzess 145 so we will increase it. Having tailbone and right flank pain, we review the lumbar XR with spinal modal for education, will get thoracic xr and tailbone pain coccyx xr. ROV 6 weeks. [facility] Medical History Bronchitis Weight loss Elevated fasting blood sugar Newly diagnosed diabetes Fatigue Screening for colon cancer Diabetes Screening for colon cancer Screening for STD (sexually transmitted disease) Screening PSA (prostate specific antigen) Encounter for routine adult physical exam with abnormal findings Screening for HIV (human immunodeficiency virus) Diabetes Night terror PTSD (post-traumatic stress disorder) Migraines Fatty liver HTN (hypertension) Suicidal ideation Depression with anxiety Surgical History Hx of nasal septoplasty History of esophagogastroduodenoscopy (EGD) H/O colonoscopy Hx of cholecystectomy History of appendectomy Hx of right knee surgery History of shoulder surgery Hx of left knee surgery Family History Father No problems noted. Mother No problems noted. Maternal Grandfather Cancer Other Mental health disorder Social History Housing: House Alcohol intake: never Patient Tobacco Use Status: Never used Tobacco e-Cigarette/Vaping Use: Never Used Second Hand Smoke Exposure: Yes service: No Current occupational status: disabled Cognitive needs: No Hearing needs: No Vision needs: Yes Review of Systems Const Denies fatigue, Denies fever(s), Denies night sweats, Denies poor appetite and Denies weight loss Eyes Details: glasses Reports requires corrective lenses ENT Reports Normal hearing present, Denies dental pain, Denies dysphagia, Denies hearing loss, Denies mouth pain, Denies odynophagia, Denies throat swelling, Denies tongue swelling and Reports other (Dentition adequate) Card Reports no additional complaints Resp Reports no additional complaints GI Details: Denies abdominal pain, Denies melena, Reports bloating, Denies hematochezia, Reports constipation, Denies GI cramping, Denies dysphagia, Denies excessive flatus, Denies early satiety, Denies heartburn, Denies diarrhea, Denies nausea, Denies odynophagia, Denies vomiting and Denies hematemesis Skin/Breast Denies pruritus, Denies lesions, Denies rash and Denies jaundice Neuro Reports Normal hearing present and Denies Abnormal speech present Endo Denies fatigue Aller/Immun Denies throat swelling and Denies tongue swelling Physical Exam Vital Signs: Last Vital Signs Pulse 75 07/18/24 09:36 BP 95/72 02/27/24 09:36 BMI result Body Mass Index 28.0 Const General: cooperative, no acute distress, well developed and well groomed Nutritional Appearance: average body habitus and well nourished Orientation/consciousness: oriented to person, oriented to place and oriented to time Limitations: No language barrier HEENT Head: Yes normocephalic and Yes atraumatic Eyes General: appearance normal, both eyes and all related structures Pupils: Equal, round and reactive pupils present Neck Neck: Yes normal visual inspection and Yes no lymphadenopathy Thyroid: Thyroid normal Resp Effort & Inspection: normal respiratory effort and able to speak in complete sentences Auscultation: clear to auscultation bilaterally Cardio Rate: regular rate Rhythm: regular rhythm Heart sounds: Normal, physiologic split S2 sound present Peripheral pulses: radial pulses present and posterior tibial pulses present GI Inspection: No distended and No Abdominal panniculus present Palpation (GI): Soft to palpation, nontender, no guarding, not rigid and No hepatosplenomegaly present Percussion: Yes normal to percussion Auscultation: normal bowel sounds Rectal Exam - Male: Yes deferred Skin General skin exam: no rashes or lesions noted, turgor normal, skin not dry, no jaundice, No spider nevi and no striae Rashes: no rashes Nails: normal Neuro General: oriented to person, oriented to place and oriented to time Cranial nerves: Yes Equal, round and reactive pupils present and Yes Normal hearing present Speech: No Abnormal speech present Extrem General: Yes normal to inspection, No clubbing, No cyanosis and No edema Psych Appearance: grossly normal and well kempt Mental Status: mental status grossly normal Speech and movement: Normal speech and movement present Affect: normal affect Attitude: cooperative Thought process: Normal thought process present and not confabulating Thought content: Normal thought content present Insight: Limited insight present (Psych) Judgement: Limited judgement present (Psych) Assessment & Plan Assessment & Plan (1) Pre-op examination: Code(s): Z01.818 - Encounter for other preprocedural examination Category: Medical (2) Constipation: Code(s): K59.00 - Constipation, unspecified Category: Medical (3) Thoracic back pain: Code(s): M54.6 - Pain in thoracic spine Category: Medical (4) Coccygeal pain: Code(s): M53.3 - Sacrococcygeal disorders, not elsewhere classified Category: Medical Plan Patient has been lost to follow-up since 08/2021; he is due for repeat colonoscopy due to poor right-sided prep. I explained this to him and he is agreeable to having it scheduled even though were bit overdue. The polyp that was removed was hyperplastic which is good. The procedure was well tolerated. The results were explained and the patient is agreeable to the follow-up interval as stated. The bowel pattern has returned to normal. Education was provided to tell any 1st degree relatives about their findings to be sure that they are screened by age 45. Educated that they will be put on a recall list when it is time for their repeat scope but should they move out of state or away from the hospital they will need to remember along with their primary to repeat the procedure in a timely fashion to avoid any adverse complications. He denies any anesthesia or sedation problems. He denies any cardiac or respiratory problems. No ID problems There is no known FHX of CRC or polyps, but he does not know his family well. He is not moving his bowels well with Linzess 145 so we will increase it. Having tailbone and right flank pain, we review the lumbar XR with spinal modal for education, will get thoracic xr and tailbone pain coccyx xr. ROV 6 weeks. Orders: Orders XR thoracic spine 2V 02/27/24 M54.6 - Pain in thoracic spine, M53.3 - Sacrococcygeal disorders, not elsewhere classified XR cervical spine 2V 02/27/24 M54.6 - Pain in thoracic spine, M53.3 - Sacrococcygeal disorders, not elsewhere classified XR sacrum coccyx min 2V 02/27/24 M54.6 - Pain in thoracic spine, M53.3 - Sacrococcygeal disorders, not elsewhere classified Medications: New linaclotide (Linzess) 290 mcg PO QAM 30 caps 3RF 30 days K59.00 - Constipation, unspecified Discontinued linaclotide Take first thing in the morning with a full glass of water. Discontinued Reason: Doctor's Order 145 mcg PO QAM 30 caps 3RF K58.1 - Irritable bowel syndrome with constipation Coding Level of Care Code Est Pt Level 4 (94433) Diagnoses Pre-op examination Z01.818 Constipation K59.00 Thoracic back pain M54.6 Coccygeal pain M53.3
[2024-02-27 09:36] VITALS: BP 95/72; PULSE 75; BMI 28.0
== END 2024-02-27 10:06 | disposition home or self-care (01) ==
PROVIDERS: PCP Nurse Practitioner Family; Visit Provider Nurse Practitioner
DX: K59.00 Constipation, unspecified (principal); Z01.818 Encounter for other preprocedural examination; Z12.11 Encounter for screening for malignant neoplasm of colon; M53.3 Sacrococcygeal disorders, not elsewhere classified
CPT/HCPCS: 99214

== ENCOUNTER 2024-02-27 09:25 | Outpatient (REF) | payer MEDICARE, SELFPAY ==
--- NOTE | ~2024-02-27 | XR_ITS ---
EXAMINATION: XR THORACOLUMBAR SPINE CLINICAL INFORMATION: Pain COMPARISON: None available. TECHNIQUE: AP and lateral views FINDINGS: The vertebral alignment is normal. No intrinsic bony abnormality. The disc heights and neural foramina are well maintained. The endplates and posterior elements are normal. No fracture or subluxation. The surrounding prevertebral soft tissues are unremarkable. XR/XR thoracic spine 2V IMPRESSION: No compression fractures or subluxations are identified. The disc spaces are preserved. No endplate changes are seen. The prevertebral soft tissues are normal. The foramina are patent.
--- NOTE | ~2024-02-27 | XR_ITS ---
EXAMINATION: XR CERVICAL SPINE CLINICAL INFORMATION: Pain COMPARISON: None available. TECHNIQUE: 3 views of the cervical spine were obtained. FINDINGS: There are no prevertebral soft tissue or bony abnormalities demonstrated. No compression fractures or subluxations are identified. Alignment is maintained at the atlanto-axial articulation. The disc spaces are preserved. No endplate changes are seen. The prevertebral soft tissues are normal. The foramina are patent. XR/XR cervical spine 2V IMPRESSION: Unremarkable examination.
--- NOTE | ~2024-02-27 | XR_ITS ---
EXAMINATION: XR SACRUM AND COCCYX CLINICAL INFORMATION: Pain COMPARISON: None available. TECHNIQUE: 2 views of the sacrum and 2 views of the coccyx were obtained. FINDINGS: There are no fractures. No bone, joint or soft tissue abnormality is demonstrated. XR/XR sacrum coccyx min 2V IMPRESSION: Unremarkable examination.
== END 2024-02-27 09:26 | disposition home or self-care (01) ==
LOC: HO.XRAY 09:25
PROVIDERS: PCP Nurse Practitioner Family; Visit Provider Nurse Practitioner
DX: Z01.818 Encounter for other preprocedural examination (principal); K59.00 Constipation, unspecified; M54.6 Pain in thoracic spine; M53.3 Sacrococcygeal disorders, not elsewhere classified
CPT/HCPCS: 72040; 72070; 72220; 99212

== ENCOUNTER 2024-04-10 10:34 | Outpatient (RCR) | payer MEDICARE, MEDICAID, SELFPAY ==
--- NOTE | 2024-04-10 14:13 | MHC.PT.EP ---
[facility] [place] [facility] [place] [facility] [place] Office [address] [phone] F: [phone] F: [phone] F: [phone] F: [phone] Physical Therapy Plan of Care Date of Evaluation: 04/10/24 Date of Surgery: Diagnosis: Low back pain Assessment: Pt is a 53 y/o M with hx of HTN and diabetes who is referred to PT for eval and treat of low back pain resulting in decreased tolerance or ability for walking, completing HH chores, sitting for extended periods of time, standing for extended periods of time and sleeping secondary to decreased lumbar ROM, decreased hip strength, TTP over L1-4 spinous processes and R PSIS, increased neural tension in spine and mild spondylosis of lumbar spine found on x-ray. Pt is motivated and is deemed an appropriate candidate to receive skilled PT services to address their physical impairments in order to improve their function. Frequency and Duration: The patient will be seen 2x/week for 4 weeks Short Term Goals: Initiate home exercise program. Pt will report at most 3/10 pain; initial 7/10. Pt will improve lumbar flexion ROM to 100%; initial 80%. Penitentiary Goals: Pt will be I with home exercise program. Pt will report at most moderate pain with walking a block; initial unable to walk long distances. Pt will report at most moderate pain with sitting for 30 minutes; initial unable to sit for 1 hour. Pt will improve Usman score by at least 10 points. Treatment Plan: Modalities to reduce pain, spasms and effusion. Manual therapy to restore motion and function. Therapeutic exercise to improve strength and flexibility. Neuromuscular re-education for posture and balance. Therapeutic activities to return to functional activities of daily living. Electronically signed by: Jl Wislon PT. Please sign and return to therapist. Thank you for your referral.
== END 2024-04-28 12:27 | disposition home or self-care (01) ==
LOC: HO.PT 10:34
PROVIDERS: PCP Nurse Practitioner Family; Visit Provider Nurse Practitioner Family
DX: M54.50 Low back pain, unspecified (principal)
CPT/HCPCS: 97110; 97161

== ENCOUNTER 2024-05-14 09:57 | Outpatient (AMB) | payer MEDICARE, MEDICAID, SELFPAY ==
[2024-05-14 10:01] VITALS: BP 110/70; PULSE 82; O2SAT 98; BMI 28.2
--- NOTE | 2024-05-14 10:01 | A.OFFPC_ITS ---
Vital Signs 05/14/24 10:01 Height 5 ft 3 in Weight 159 lb BMI 28.2 BP 110/70 Blood Pressure Location Rt brachial Position Sitting Pulse 82 Pulse Source Pulse Oximeter Pulse Oximetry (%) 98 Intake Visit Reasons: 4m F/U Intake Note: pt is here for 4 month follow up Mental Health Coordinator Required: No Accompanied by: Self / Same As Patient Allergies acetaminophen [Tylenol] Adverse Reaction (Unknown, Verified 05/14/24 10:01) DUE TO LIVER DISEASE dextromethorphan [From NyQuil] Adverse Reaction (Unknown, Verified 05/14/24 10:0 1) HX OF OVERDOSE doxylamine [From NyQuil] Adverse Reaction (Unknown, Verified 05/14/24 10:01) HX OF OVERDOSE pseudoephedrine [From NyQuil] Adverse Reaction (Unknown, Verified 05/14/24 10:01) HX OF OVERDOSE Tobacco use date assessed: 08/21/23 Dental Screening Dental Screen Date: 01/07/24 HPI 4m F/U HPI Details Pt is a diabetic, on an TORSTEN and a statin. A1C in office today is 5.3. Microalbumin is up to date. Denies polyuria, polydipsia, and neuropathy. Pt denies any signs and symptoms of hypoglycemia and does know how to correct it. Eye exam is up to date. Pt's depression screen was positive. He has the number for a therapist he was seeing. Denies any SI and HI. Stressed due to daughter living with pt and 2 grandchildren. [facility] Medical History Bronchitis Weight loss Elevated fasting blood sugar Newly diagnosed diabetes Fatigue Screening for colon cancer Diabetes Screening for colon cancer Screening for STD (sexually transmitted disease) Screening PSA (prostate specific antigen) Encounter for routine adult physical exam with abnormal findings Screening for HIV (human immunodeficiency virus) Diabetes Night terror PTSD (post-traumatic stress disorder) Migraines Fatty liver HTN (hypertension) Suicidal ideation Depression with anxiety Surgical History Hx of nasal septoplasty History of esophagogastroduodenoscopy (EGD) H/O colonoscopy Hx of cholecystectomy History of appendectomy Hx of right knee surgery History of shoulder surgery Hx of left knee surgery Family History Father No problems noted. Mother No problems noted. Maternal Grandfather Cancer Other Mental health disorder Social History Housing: House Alcohol intake: never Patient Tobacco Use Status: Never used Tobacco e-Cigarette/Vaping Use: Never Used Second Hand Smoke Exposure: Yes service: No Current occupational status: disabled Cognitive needs: No Hearing needs: No Vision needs: Yes Questionnaire PHQ-9 Over the last 2 weeks, how often have you been bothered by any of the following problems? 1. Little interest or pleasure in doing things: nearly every day 2. Feeling down, depressed, or hopeless: nearly every day 3. Trouble falling or staying asleep, or sleeping too much: nearly every day 4. Feeling tired or having little energy: nearly every day 5. Poor appetite or overeating: more than half the days 6. Feeling bad about yourself - or that you are a failure or have let yourself or your family down: several days 7. Trouble concentrating on things, such as reading the newspaper or watching television: more than half the days 8. Moving or speaking so slowly that other people could have noticed. Or the opposite - being so fidgety or restless that you have been moving around a lot more than usual: more than half the days 9. Thoughts that you would be better off or of hurting yourself in some way: not at all Total score: 19 Depression Screening Interpretation: Positive Depression Screening Done: Yes 76522 - PHQ-9 Billing: Yes Source: Developed by Drs. Renny Yepez, Katiuska Hernández, Pradeep Banuelos and colleagues, with an educational arminda from [employer]. Thrive Questionnaire Date Thrive assessed: 05/14/24 I am a: Patient What is your living situation today?: I have a steady place to live Within the past 12 months, did the food you bought not last and you didn't have the money to get more?: Often true Within the past 12 months, did you worry whether your food would run out before you got money to buy more?: Often true Do you have trouble paying for medicines?: No Do you have trouble getting transportation to medical appointments?: No Do you have trouble paying your heating and electricity bill?: Yes Do you have trouble taking care of your child, family member or friend?: Yes Do you have trouble with day-to-day activities such as bathing, preparing meals, shopping, managing finances, etc.?: Yes Are you interested in more education?: No Please select the resources that you would like help with: Food, Utilities and Care for elder or disabled Currently or been in a relationship where the following occur: No concerns reported THRIVE Score: 3 AUDIT C Alcohol Use Questionnaire (AUDIT-C) 1. How often do you have a drink containing alcohol?: Never 3. How often do you have six or more drinks on one occasion?: Never Total Score: 0 Score Reviewed/Action Taken: Yes MAGUI-7 AMB Questionnaire MAGUI-7 Date MAGUI - 7 assessed: 05/14/24 Feeling nervous, anxious, or on edge: 3 = Nearly every day Not being able to stop or control worryin = More than half the days Worrying too much about different things: 3 = Nearly every day Trouble relaxin = More than half the days Being so restless that it is hard to sit still: 2 = More than half the days Becoming easily annoyed or irritable: 2 = More than half the days Feeling afraid as if something awful might happen: 2 = More than half the days Total MAGUI-7 score (0-4 normal; 5-9 mild; 10-14 moderate; 15-21 severe): 16 Source: Developed by Drs. Renny Yepez, Katiuska Hernández, Pradeep Banuelos and colleagues, with an educational arminda from [employer]. MAGUI-7 Assessment Billing MAGUI-7 Assessment Tool: MAGUI-7 Assessment 72974 (denies any si or HI, pt reports he will call his therapist) Review of Systems Const Reports as per HPI Physical exam (Primary Care) Vital Signs: Last Vital Signs Pulse 82 05/14/24 10:01 BP 110/70 05/14/24 10:01 Pulse Ox 98 05/14/24 10:01 BMI result Body Mass Index 28.2 Tobacco/Smoking Status: Tobacco use Status Tobacco use date assessed 08/21/23 05/14/24 10:02 Patient Tobacco Use Status Never used Tobacco 05/14/24 10:02 e-Cigarette/Vaping Use Never Used 05/14/24 10:02 PHQ-9: PHQ-9 Score PHQ-9: Total score 19 05/14/24 10:30 Depression Screening Interpretation: Positive Thrive Assessment: Date of Thrive Assessment Date Thrive assessed 05/14/24 05/14/24 10:02 Currently or been in a relationship where the following occur: No concerns reported Const General: cooperative Orientation/consciousness: patient oriented x3 Resp Effort & Inspection: normal respiratory effort Auscultation: clear to auscultation bilaterally Cardio Rate: regular rate Rhythm: regular rhythm Heart sounds: S1 normal heart sound present and S2 normal heart sound present Neuro General: patient oriented x3 Extrem Other: bilat feet: + sensation with use of monofilament, feet intact Psych Appearance: grossly normal Mental Status: mental status grossly normal Speech and movement: Normal speech and movement present Affect: normal affect Attitude: cooperative Thought process: Normal thought process present Thought content: Normal thought content present Insight: Good insight present (Psych) Judgement: Good judgement present (Psych) Results AMB Hemoglobin A1c AMB Hemoglobin A1c 5.3 % Last Edit by Walter Rubin CMA on 05/14/24 10: 41 Results Reviewed Results Reviewed: Laboratory Last Values Hgb A1c (Clinic) 5.3 % (4.0-6.0) 05/14/24 10:40 Coding Level of Care Code Est Pt Level 3 (00732) Diagnoses Diabetes E11.9 Immunizations incomplete Z28.39 Additional Codes MAGUI-7 Assessment Billing - MAGUI-7 Assessment Tool: MAGUI-7 Assessment 79899 ([id number]) Assessment & Plan Assessment & Plan (1) Diabetes: Code(s): E11.9 - Type 2 diabetes mellitus without complications Category: Medical Plan: Labs ordered (2) Immunizations incomplete: Code(s): Z28.39 - Other underimmunization status Category: Medical Plan: Lab ordered Plan The patient agreed to the use of a rn medical inpatient services for this encounter. Scribed for DOUGLAS Joiner by Sharron Trevino rn medical inpatient services, on 05/14/2024 at 10:30 EST. Orders: Orders Complete Blood Count Auto Diff Today E11.9 - Type 2 diabetes mellitus without complications Comprehensive [place]. Panel Fast Today E11.9 - Type 2 diabetes mellitus without complications TSH reflex Free T4 Today E11.9 - Type 2 diabetes mellitus without complications UA CC w/rflx Micro + Cult Today E11.9 - Type 2 diabetes mellitus without complications Lipid Panel Today E11.9 - Type 2 diabetes mellitus without complications AMB Hemoglobin A1c Today Z13.9 - Encounter for screening, unspecified Varicella IgG Antibody Today Z28.39 - Other underimmunization status
== END 2024-05-14 16:27 | disposition home or self-care (01) ==
PROVIDERS: PCP Nurse Practitioner Family; Visit Provider Nurse Practitioner Family
DX: E11.9 Type 2 diabetes mellitus without complications (principal); Z28.39 Other underimmunization status; Z13.9 Encounter for screening, unspecified

== ENCOUNTER → 2024-05-14 09:57 | Outpatient (BNVA) | payer MEDICARE, MEDICAID, SELFPAY | PROVIDERS: PCP Nurse Practitioner Family; Visit Provider Nurse Practitioner Family | DX: E11.9 Type 2 diabetes mellitus without complications (principal); Z28.39 Other underimmunization status | CPT/HCPCS: 83036; 96127; 99212 ==

== ENCOUNTER 2024-05-28 10:32 | Outpatient (REF) | payer MEDICARE, MEDICAID, SELFPAY ==
[2024-05-28 13:19] LABS: MANUAL DIFF FLAG NO
[2024-05-28 13:34] LABS: Basophils Percent Auto 0.5 % (0-2); Eosinophils Absolute Auto 0.2 X10*3/uL (0.0-0.4); Eosinophils Percent Auto 2.9 % (0-4); Hematocrit 42.2 % (42.0-52.0); Hemoglobin 13.9 g/dl (14.0-18.0); Imm Gran Abs Auto 0.01 X10*3/uL (0.00-0.03); Imm Gran Pct Auto 0.2 % (0.0-0.4); Lymphocytes Absolute Auto 2.5 X10*3/uL (1.2-4.9); Lymphocytes Percent Auto 45.1 % (20-40); Mean Corpuscular HGB Conc 32.9 g/dl (31.0-36.0); Mean Corpuscular Hemoglobin 30.3 pg (27.0-33.0); Mean Corpuscular Volume 91.9 fL (80.0-98.0); Mean Platelet Volume 10.3 fL (9.4-12.4); Monocytes Absolute Auto 0.7 X10*3/uL (0.1-1.2); Monocytes Percent Auto 11.9 % (2-11); Neutrophils Absolute Auto 2.2 x10*3/uL (2.0-8.3); Neutrophils Percent Auto 39.4 % (45-73); Platelet Count 193 X10*3/uL (160-400); Red Blood Count 4.59 X10*6/uL (4.60-5.80); Red Cell Distribution Width 12.7 % (11.0-16.0); White Blood Count 5.5 X10*3/uL (4.8-10.8)
[2024-05-28 13:59] LABS: Appearance Urine Clear; Color Urine Dark Yellow; Glucose Urine UA Negative (Negative); Leukocyte Esterase Urine Negative (Negative); Nitrite Urine Negative (Negative); PH 5.5 (5.0-9.0); Specific Gravity - Urine 1.025 (1.005-1.025); Urine Blood Negative (Negative); Urine Ketones Negative (Negative); Urine Protein Negative (Neg-Trace)
[2024-05-28 14:06] LABS: Alanine Aminotransferase 34 U/L (0-40); Albumin Level 4.1 g/dL (3.5-5.0); Alkaline Phosphatase 72 U/L (39-117); Anion Gap 9 (12-20); Aspartate Amino Transferase 30 U/L (5-37); Bilirubin Total 0.8 mg/dL (0.0-1.0); Blood Urea Nitrogen 15 mg/dL (9-16); Carbon Dioxide 28 mmol/L (22-29); Chloride 106 mmol/L (96-108); Cholesterol 170 mg/dL (<200); Estimated Glomerular Filt Rate > 60; Glucose Fasting 96 mg/dL (60-99); HDL Cholesterol 35 mg/dL (>40); LDL Cholesterol Calculated 108 mg/dL (<100); Sodium 138 mmol/L (135-145); Triglycerides 136 mg/dL (<150)
[2024-05-28 14:15] LABS: TSH reflex Free T4 4.28 uIU/mL (0.32-4.0)
[2024-05-28 15:00] LABS: Free T4 (Free Thyroxine) 0.94 ng/dL (0.71-1.85)
[2024-05-30 02:09] LABS: Varicella IgG Antibody 8.79 S/CO
== END 2024-05-28 10:33 | disposition home or self-care (01) ==
LOC: HO.HMGCLDS 10:32
PROVIDERS: PCP Nurse Practitioner Family; Visit Provider Nurse Practitioner Family
DX: E11.9 Type 2 diabetes mellitus without complications (principal); Z28.39 Other underimmunization status
CPT/HCPCS: 36415; 80053; 80061; 81003; 84439; 84443; 85025; 86787

== ENCOUNTER 2024-06-15 10:39 | Outpatient (REF) | payer MEDICARE, MEDICAID, SELFPAY ==
[2024-06-15 14:34] LABS: TSH reflex Free T4 3.48 uIU/mL (0.32-4.0)
[2024-06-16 11:44] LABS: Thyroid Peroxidase Antibodies 1 IU/mL (<9)
== END 2024-06-15 10:40 | disposition home or self-care (01) ==
LOC: HO.HMGCLDS 10:39
PROVIDERS: PCP Nurse Practitioner Family; Visit Provider Nurse Practitioner Family
DX: R79.89 Other specified abnormal findings of blood chemistry (principal)
CPT/HCPCS: 36415; 84443; 86376

== ENCOUNTER 2024-10-20 07:20 | Day surgery (SDC) | payer MEDICARE, MEDICAID, SELFPAY ==
--- NOTE | 2024-10-19 12:39 | P.CONAN_ITS ---
Documented by User: Ami Hopkins NP 10/19/24 12:39 HPI - Anesthesia Eval Consult details Narrative: 54yo M for Colonoscopy Anesthesia Pre-Procedure Meds Is the patient on any of the following meds?: GLP1/DPP4 PMFSH Active Problems Active Problems: All Active Problems Immunizations incomplete (Acute) Coccygeal pain (Acute) Thoracic back pain (Acute) Pre-op examination (Acute) Lower back pain (Acute) Positive screening for depression on 9-item Patient Health Questionnaire (PHQ-9) (Acute) Medial epicondylitis (Acute) Lateral epicondylitis of elbow (Acute) Anxiety (Acute) Hypercalcemia (Acute) Fatty liver (Acute) Diabetes (Acute) Blurred vision, bilateral (Acute) Elevated liver enzymes (Acute) Constipation (Acute) Bunion of great toe (Acute) Snoring (Acute) Excessive daytime sleepiness (Acute) Sleep disorder (Acute) Tremor (Acute) Bruxism (Acute) Allergic rhinitis (Acute) Elevated TSH (Acute) Migraines (Acute) Past Medical History Medical History Bronchitis Weight loss Elevated fasting blood sugar Newly diagnosed diabetes Fatigue Screening for colon cancer Diabetes Screening for colon cancer Screening for STD (sexually transmitted disease) Screening PSA (prostate specific antigen) Encounter for routine adult physical exam with abnormal findings Screening for HIV (human immunodeficiency virus) Diabetes Night terror PTSD (post-traumatic stress disorder) Migraines Fatty liver HTN (hypertension) Suicidal ideation Depression with anxiety Family History Family History Father No problems noted. Mother No problems noted. Maternal Grandfather Cancer Other Mental health disorder Family history of problems with anesthesia: No Surgical History Surgical History Hx of nasal septoplasty History of esophagogastroduodenoscopy (EGD) H/O colonoscopy Hx of cholecystectomy History of appendectomy Hx of right knee surgery History of shoulder surgery Hx of left knee surgery History of Problems with Anesthesia: No Social History Social History Housing: House Alcohol intake: never Patient Tobacco Use Status: Never used Tobacco e-Cigarette/Vaping Use: Never Used Second Hand Smoke Exposure: Yes Have you been hit, kicked, punched, or otherwise hurt by someone within the past year? If so, by whom?: No Are you DNR?: No Advance Directives: No Advance Directives Information Provided: Yes Nutrition Risks: No Nutritional Risk Poor oral hygiene: No service: No Current occupational status: disabled Cognitive needs: No Hearing needs: No Vision needs: Yes Meds Allergies Allergy/AdvReac Type Severity Reaction Status Date / Time acetaminophen [Tylenol] AdvReac Unknown DUE TO Verified 05/14/24 10:01 LIVER DISEASE dextromethorphan AdvReac Unknown HX OF Verified 05/14/24 10:01 [From NyQuil] OVERDOSE doxylamine [From NyQuil] AdvReac Unknown HX OF Verified 05/14/24 10:01 OVERDOSE pseudoephedrine [From NyQuil] AdvReac Unknown HX OF Verified 05/14/24 10:01 OVERDOSE Home Medications ?Medication ?Instructions ?Recorded ?Confirmed ?Last Taken ?Type hydroxyzine HCl 25 mg tablet 25 mg PO DAILY PRN Anxiety 12/22/21 01/07/24 Unknown History magnesium oxide 400 mg (241.3 mg 400 mg PO BEDTIME PRN 01/01/23 01/07/24 Unknown History magnesium) tablet Assessment and Plan Assessment Anesthesia Assessment: Chart Reviewed Final Anesthetic Review Family History of Problems with Anesthesia: No History of Problems with Anesthesia: No Documented by User: Vicki Robledo MD 10/20/24 08:46 [facility] Past Medical History Medical History Bronchitis Weight loss Elevated fasting blood sugar Newly diagnosed diabetes Fatigue Screening for colon cancer Diabetes Screening for colon cancer Screening for STD (sexually transmitted disease) Screening PSA (prostate specific antigen) Encounter for routine adult physical exam with abnormal findings Screening for HIV (human immunodeficiency virus) Diabetes Night terror PTSD (post-traumatic stress disorder) Migraines Fatty liver HTN (hypertension) Suicidal ideation Depression with anxiety Family History Family History Father No problems noted. Mother No problems noted. Maternal Grandfather Cancer Other Mental health disorder Surgical History Surgical History Hx of nasal septoplasty History of esophagogastroduodenoscopy (EGD) H/O colonoscopy Hx of cholecystectomy History of appendectomy Hx of right knee surgery History of shoulder surgery Hx of left knee surgery Social History Social History Housing: House Alcohol intake: never Patient Tobacco Use Status: Never used Tobacco e-Cigarette/Vaping Use: Never Used Second Hand Smoke Exposure: Yes Have you been hit, kicked, punched, or otherwise hurt by someone within the past year? If so, by whom?: No Are you DNR?: No Advance Directives: No Advance Directives Information Provided: Yes Nutrition Risks: No Nutritional Risk Poor oral hygiene: No service: No Current occupational status: disabled Cognitive needs: No Hearing needs: No Vision needs: Yes Meds Allergies Allergy/AdvReac Type Severity Reaction Status Date / Time acetaminophen [Tylenol] AdvReac Unknown DUE TO Verified 05/14/24 10:01 LIVER DISEASE dextromethorphan AdvReac Unknown HX OF Verified 05/14/24 10:01 [From NyQuil] OVERDOSE doxylamine [From NyQuil] AdvReac Unknown HX OF Verified 05/14/24 10:01 OVERDOSE pseudoephedrine [From NyQuil] AdvReac Unknown HX OF Verified 05/14/24 10:01 OVERDOSE Home Medications ?Medication ?Instructions ?Recorded ?Confirmed ?Last Taken ?Type hydroxyzine HCl 25 mg tablet 25 mg PO DAILY PRN Anxiety 12/22/21 01/07/24 Unknown History magnesium oxide 400 mg (241.3 mg 400 mg PO BEDTIME PRN 01/01/23 01/07/24 Unknown History magnesium) tablet Exam Airway Mallampati Class: II TM Dist: >3cm Heart: rrr Lungs: cta Assessment and Plan Assessment Anesthesia Assessment: Anesthesia Plan Discussed Final Anesthetic Review NPO: Yes ASA Class: III Final Preanesthetic Review: No Changes in Pt Med Stat, Meds/Allgs Chart Reviewed, Consent Obtained/Reviewed and Anes Risks/Benef Reviewed Patient Risk: Intermediate Procedure Risk: Low Anesthetic Plan Anesthetic Plan: MAC: Disposition: Standard PACU
[2024-10-20 07:34] VITALS: BMI 26.6
[2024-10-20 07:47] VITALS: BP 103/70; PULSE 69; RESP 20; TEMP 36.1; O2SAT 97; BMI 27.1
[2024-10-20 08:02] LABS: Glucose, Whole Blood 85 mg/dL (60-115)
[2024-10-20] MEDS: Lactated Ringers 1,000 ML 100 ML IVCONT (08:12)
--- NOTE | 2024-10-20 08:30 | MHC.SHP ---
Pre-Procedural Eval Section A - 24 Hr Update-Section A only Date of Service: 10/20/24 Section B - Complete if H&P > 30 days Chief Complaint: Pain in thoracic spine Relevant Family History (Specify if Yes): No Relevant Social History: None Present Medications: see Short Stay Collaborative assessment Medical History: Significant History (Bronchitis Weight loss Elevated fasting blood sugar Newly diagnosed diabetes Fatigue Screening for colon cancer Diabetes Screening for colon cancer Screening for STD (sexually transmitted disease) Screening PSA (prostate specific antigen) Encounter for routine adult physical exam with abnormal findi) History of Previous Operations: Relevant previous surgery/procedure and date(s) ( Hx of nasal septoplasty History of esophagogastroduodenoscopy (EGD) H/O colonoscopy Hx of cholecystectomy History of appendectomy Hx of right knee surgery History of shoulder surgery Hx of left knee surgery) Allergies: Allergies Allergy/AdvReac Type Severity Reaction Status Date / Time acetaminophen [Tylenol] AdvReac Unknown DUE TO Verified 05/14/24 10:01 LIVER DISEASE dextromethorphan AdvReac Unknown HX OF Verified 05/14/24 10:01 [From NyQuil] OVERDOSE doxylamine [From NyQuil] AdvReac Unknown HX OF Verified 05/14/24 10:01 OVERDOSE pseudoephedrine [From NyQuil] AdvReac Unknown HX OF Verified 05/14/24 10:01 OVERDOSE Review of Systems Sugical H&P ROS: Negative: Constitution, Cardiovascular, Respiratory, Neurological, Psychiatric, Hem-Onc, Allergic/Immunologic, Gastrointestinal, Genitourinary, Musculoskeletal, Integumentary, Endocrine and Eyes/Ears/Nose/Throat Exam Surgical H&P Exam: Normal: HEENT, Normal: Heart, Normal: Lungs, Normal: Extremities, Normal: Abdomen, Normal: Skin and Normal: Neurological Plan Diagnosis/Plan: Unchanged I have reviewed the history and physical and performed a pertinent physical examination on my patient. No changes have occurred unless specified. Time Spent With Patient Time: Total time managing care of this patient today ____ minutes.
--- NOTE | 2024-10-20 09:38 | HO.OPN-COLON ---
Colonoscopy Operative Note Operative Note Date of Service: 10/20/24 Narrative: Operative Information Procedure Description: Colonoscopy Indication: screening Anesthesia: MAC COLONOSCOPY Instrument: Olympus variable stiffness adult scope 190L Colonoscopy Monitoring: Vital signs and clinical assessment, continuous EKG monitoring, Pulse oximetry, Carbon Dioxide monitoring and blood pressure monitoring were done throughout the procedure. Colon withdrawal time was 14 minutes. Procedure: The patient was placed in the left lateral decubitis position and pre-procedure medications were administered. After a digital rectal examination of the ano-rectum, the video colonoscope was inserted into the rectum and advanced through the colon to the cecum/TI. The colonoscope was slowly withdrawn in a retrograde panoramic fashion and the colon mucosa was carefully examined including a retroflexed view of the rectum. Findings and interventions are described below. Procedure Difficulty: easy Findings: Mild melanosis coli noted throughout colon Terminal Ileum-normal Cecum:normal Ascending Colon: x 2 sessile polyps 6-8 mm noted. one removed with cold snare and the other with cold forceps Transverse Colon -normal Descending Colon:normal Sigmoid Colon: 6-8 mm sessile polyp removed with cold snare Rectum: Retroflexion with small internal hemorrhoids seen, grade I, x 3 sessile polyps 5-7 mm removed with cold forceps Anorectum - normal Intervention: cold snare and cold forceps Colon preparation: [place] Bowel Preparation Scale Right colon; 2 Transverse colon: 2 Left colon; 2 (0 = Unprepared colon segment with mucosa not seen due to solid stool that cannot be cleared. 1 = Portion of mucosa of the colon segment seen, but other areas of the colon segment not well seen due to staining, residual stool and/or opaque liquid. 2 = Minor amount of residual staining, small fragments of stool and/or opaque liquid, but mucosa of colon segment seen well. 3 = Entire mucosa of colon segment seen well with no residual staining, small fragments of stool or opaque liquid) Impression and Post Procedure Diagnosis: melanosis coli colon polyps x5 internal hemorrhoids Plan: High fiber diet leaflet Avoid straining at stool, epsom salts and sitz bath, anusol supps or cream Repeat Colonoscopy in 4-5 years if adenomatous, 10 years if non adenomatous or earlier if clinically indicated Above findings were reviewed with the patient and relevant handouts were provided if indicated.
[2024-10-20 09:43] VITALS: BP 93/51; PULSE 63; RESP 16; TEMP 36.2; O2SAT 94
[2024-10-20 09:45] VITALS: BP 91/45; PULSE 64; RESP 16; O2SAT 94
[2024-10-20 09:57] VITALS: BP 90/63; PULSE 67; RESP 20; TEMP 36.1; O2SAT 100
== END 2024-10-20 10:20 | disposition home or self-care (01) ==
PROVIDERS: PCP Nurse Practitioner Family; Visit Provider Internal Medicine Gastroenterology
PROC: 0DJD8ZZ Inspection of Lower Intestinal Tract, Via Natural or Artificial Opening Endoscopic (ICD-10-PCS; CPT 45378; principal; 2024-10-20 09:10)
DX: Z12.11 Encounter for screening for malignant neoplasm of colon (principal); D12.2 Benign neoplasm of ascending colon; K63.5 Polyp of colon; K62.1 Rectal polyp; K63.89 Other specified diseases of intestine; K64.0 First degree hemorrhoids; K58.1 Irritable bowel syndrome with constipation; K76.0 Fatty (change of) liver, not elsewhere classified; I10 Essential (primary) hypertension; E11.9 Type 2 diabetes mellitus without complications; R53.83 Other fatigue; R63.4 Abnormal weight loss; Z68.28 Body mass index [BMI] 28.0-28.9, adult; M54.6 Pain in thoracic spine; M53.3 Sacrococcygeal disorders, not elsewhere classified; Z79.51 Long term (current) use of inhaled steroids; Z79.85 Long-term (current) use of injectable non-insulin antidiabetic drugs; Z79.899 Other long term (current) drug therapy; Z88.8 Allergy status to other drugs, medicaments and biological substances
CPT/HCPCS: 45385; 45380; 82947; 88305; J2704

== ENCOUNTER → 2024-10-20 07:20 | Outpatient (BNV) | payer MEDICARE, MEDICAID, SELFPAY | PROVIDERS: PCP Nurse Practitioner Family; Visit Provider Internal Medicine Gastroenterology | DX: Z12.11 Encounter for screening for malignant neoplasm of colon (principal); K63.89 Other specified diseases of intestine; K63.5 Polyp of colon; K64.0 First degree hemorrhoids | CPT/HCPCS: 45380; 45385 ==

== ENCOUNTER 2024-11-04 09:44 | Outpatient (AMB) | payer MEDICARE, MEDICAID, SELFPAY ==
[2024-11-04 09:49] VITALS: BP 98/70; PULSE 69; BMI 29.4
--- NOTE | 2024-11-04 09:49 | A.OFFVIS_ITS ---
Vital Signs 11/04/24 09:49 Height 5 ft 3 in Weight 166 lb 3.657 oz BMI 29.4 BP 98/70 Blood Pressure Location Lt brachial Position Sitting Pulse 69 Intake Visit Reasons: S/P Intake Note: Marcial presents in follow up s/p colonoscopy. CC: Patient c/o RLQ abdominal pain since after colonoscopy. He also reports constipation sometimes and having to strain. [employer] Required: No Accompanied by: Self / Same As Patient Allergies acetaminophen [Tylenol] Adverse Reaction (Unknown, Verified 11/04/24 09:53) DUE TO LIVER DISEASE dextromethorphan [From NyQuil] Adverse Reaction (Unknown, Verified 11/04/24 09:53) HX OF OVERDOSE doxylamine [From NyQuil] Adverse Reaction (Unknown, Verified 11/04/24 09:53) HX OF OVERDOSE pseudoephedrine [From NyQuil] Adverse Reaction (Unknown, Verified 11/04/24 09:53) HX OF OVERDOSE HPI HPI S/P: Details: Assessment & Plan (1) Pre-op examination: Code(s): Z01.818 - Encounter for other preprocedural examination Category: Medical (2) Constipation: Code(s): K59.00 - Constipation, unspecified Category: Medical (3) Thoracic back pain: Code(s): M54.6 - Pain in thoracic spine Category: Medical (4) Coccygeal pain: Code(s): M53.3 - Sacrococcygeal disorders, not elsewhere classified Category: Medical Plan Patient has been lost to follow-up since 08/2021; he is due for repeat colonoscopy due to poor right-sided prep. I explained this to him and he is agreeable to having it scheduled even though were bit overdue. The polyp that was removed was hyperplastic which is good. The procedure was well tolerated. The results were explained and the patient is agreeable to the follow-up interval as stated. The bowel pattern has returned to normal. Education was provided to tell any 1st degree relatives about their findings to be sure that they are screened by age 45. Educated that they will be put on a recall list when it is time for their repeat scope but should they move out of state or away from the hospital they will need to remember along with their primary to repeat the procedure in a timely fashion to avoid any adverse complications. He denies any anesthesia or sedation problems. He denies any cardiac or respiratory problems. No ID problems There is no known FHX of CRC or polyps, but he does not know his family well. He is not moving his bowels well with Linzess 145 so we will increase it. Having tailbone and right flank pain, we review the lumbar XR with spinal modal for education, will get thoracic xr and tailbone pain coccyx xr. ROV 6 weeks. Orders: Orders XR thoracic spine 2V 02/27/24 M54.6 - Pain in thoracic spine, M53.3 - Sacrococcygeal disorders, not elsewhere classified XR cervical spine 2V 02/27/24 M54.6 - Pain in thoracic spine, M53.3 - Sacrococcygeal disorders, not elsewhere classified XR sacrum coccyx min 2V 02/27/24 M54.6 - Pain in thoracic spine, M53.3 - Sacrococcygeal disorders, not elsewhere classified Medications: New linaclotide (Linzess) 290 mcg PO QAM 30 caps 3RF 30 days K59.00 - Constipation, unspecified Discontinued linaclotide Take first thing in the morning with a full glass of water. Discontinued Reason: Doctor's Order 145 mcg PO QAM 30 caps 3RF K58.1 - Irritable bowel syndrome with constipation X-ray of the thoracic cervical spine and coccyx 03/19/24 C-SPINE FINDINGS: There are no prevertebral soft tissue or bony abnormalities demonstrated. No compression fractures or subluxations are identified. Alignment is maintained at the atlanto-axial articulation. The disc spaces are preserved. No endplate changes are seen. The prevertebral soft tissues are normal. The foramina are patent. XR/XR cervical spine 2V IMPRESSION: Unremarkable examination. * T-SPINE FINDINGS: The vertebral alignment is normal. No intrinsic bony abnormality. The disc heights and neural foramina are well maintained. The endplates and posterior elements are normal. No fracture or subluxation. The surrounding prevertebral soft tissues are unremarkable. XR/XR thoracic spine 2V IMPRESSION: No compression fractures or subluxations are identified. The disc spaces are preserved. No endplate changes are seen. The prevertebral soft tissues are normal. The foramina are patent. * COCCYX FINDINGS: There are no fractures. No bone, joint or soft tissue abnormality is demonstrated. XR/XR sacrum coccyx min 2V IMPRESSION: Unremarkable examination. COLONOSCOPY 10/20/24 Findings: Mild melanosis coli noted throughout colon Terminal Ileum-normal Cecum:normal Ascending Colon: x 2 sessile polyps 6-8 mm noted. one removed with cold snare and the other with cold forceps Transverse Colon -normal Descending Colon:normal Sigmoid Colon: 6-8 mm sessile polyp removed with cold snare Rectum: Retroflexion with small internal hemorrhoids seen, grade I, x 3 sessile polyps 5-7 mm removed with cold forceps Anorectum - normal Intervention: cold snare and cold forceps Impression and Post Procedure Diagnosis: melanosis coli colon polyps x5 internal hemorrhoids Plan: High fiber diet leaflet Avoid straining at stool, epsom salts and sitz bath, anusol supps or cream Repeat Colonoscopy in 4-5 years if adenomatous, 10 years if non adenomatous or earlier if clinically indicated BIOPSY Received: 10/20/24 Diagnosis A. Colon, ascending, biopsy and polyp: Sessile serrated lesion/polyp without dysplasia, and colonic mucosa with lamina propria pigmented macrophages consistent with melanosis coli. B. Colon, sigmoid, polyp: Hyperplastic polyp and pigmented lamina propria macrophages consistent with melanosis coli; no adenomatous dysplasia seen. C. Colon, rectal polyps: Hyperplastic polyps, multiple pieces, with pigmented lamina propria macrophages consistent with melanosis col TODAY'S VISIT The procedure should be repeated in 5 years as only one of the polyps was adenomous. The procedure was well tolerated. The results were explained and the patient is agreeable to the follow-up interval as stated. Education was provided to tell any 1st degree relatives about their findings to be sure that they are screened by age 45. Educated that they will be put on a recall list when it is time for their repeat scope but should they move out of state or away from the hospital they will need to remember along with their primary to repeat the procedure in a timely fashion to avoid any adverse complications. Although he is moving his bowels well with the increased Linzess and senna at night he has been noticed increasing cramping in the lower abdomen since the procedure. He tried adding fiber but this did not seem to alleviate the problem. The cramping is worse 1st thing in the morning and it will be a bit sore in the left lower quadrant. I think that this is all in response to the prep so will give him a 10 mg dose of dicyclomine to take in the evening to see if he can call his bowels down. I told him he can play with the dosing and he does not need to take it forever once things get back in step. He agrees to a return office visit in 6 months and will call me if this plan is not successful. [facility] Medical History Pre-op examination Bronchitis Weight loss Elevated fasting blood sugar Newly diagnosed diabetes Fatigue Screening for colon cancer Diabetes Screening for colon cancer Screening for STD (sexually transmitted disease) Screening PSA (prostate specific antigen) Encounter for routine adult physical exam with abnormal findings Screening for HIV (human immunodeficiency virus) Diabetes Night terror PTSD (post-traumatic stress disorder) Migraines Fatty liver HTN (hypertension) Suicidal ideation Depression with anxiety Surgical History Hx of nasal septoplasty History of esophagogastroduodenoscopy (EGD) H/O colonoscopy Hx of cholecystectomy History of appendectomy Hx of right knee surgery History of shoulder surgery Hx of left knee surgery Family History Father No problems noted. Mother No problems noted. Maternal Grandfather Cancer Other Mental health disorder Social History Housing: House Alcohol intake: never Patient Tobacco Use Status: Never used Tobacco e-Cigarette/Vaping Use: Never Used Second Hand Smoke Exposure: Yes service: No Current occupational status: disabled Cognitive needs: No Hearing needs: No Vision needs: Yes Review of Systems Const Denies fatigue, Denies fever(s), Denies night sweats, Denies poor appetite and Denies weight loss Eyes Details: bib Reports requires corrective lenses ENT Reports Normal hearing present, Denies dental pain, Denies dysphagia, Denies hearing loss, Denies mouth pain, Denies odynophagia, Denies throat swelling, Denies tongue swelling and Reports other (Dentition adequate) GI Details: Denies abdominal pain, Denies melena, Denies bloating, Denies hematochezia, Denies constipation, Denies GI cramping, Denies dysphagia, Denies excessive flatus, Denies early satiety, Denies heartburn, Denies diarrhea, Denies nausea, Denies odynophagia, Denies vomiting and Denies hematemesis Skin/Breast Denies pruritus, Denies lesions, Denies rash and Denies jaundice Neuro Reports Normal hearing present and Denies Abnormal speech present Endo Denies fatigue Aller/Immun Denies throat swelling and Denies tongue swelling Physical Exam Vital Signs: Last Vital Signs Pulse 69 11/04/24 09:49 BP 98/70 11/04/24 09:49 BMI result Body Mass Index 29.4 Const General: cooperative, no acute distress, well developed and well groomed Nutritional Appearance: well nourished, obese and overweight Orientation/consciousness: oriented to person, oriented to place and oriented to time Limitations: No language barrier, ambulation with cane, ambulation with walker and wheelchair HEENT Head: Yes normocephalic and Yes atraumatic Eyes General: appearance normal, both eyes and all related structures Pupils: Equal, round and reactive pupils present Neck Neck: Yes normal visual inspection and Yes no lymphadenopathy Thyroid: Thyroid normal Resp Effort & Inspection: normal respiratory effort and able to speak in complete sentences Auscultation: clear to auscultation bilaterally Cardio Rate: regular rate Rhythm: regular rhythm Heart sounds: Normal, physiologic split S2 sound present Peripheral pulses: radial pulses present and posterior tibial pulses present GI Inspection: No distended and No Abdominal panniculus present Palpation (GI): Soft to palpation, nontender, no guarding, not rigid, No hepatosplenomegaly present and Hepatosplenomegaly present Percussion: Yes normal to percussion Auscultation: normal bowel sounds Rectal Exam - Male: Yes deferred Skin General skin exam: no rashes or lesions noted, turgor normal, skin not dry, no jaundice, No spider nevi and no striae Rashes: no rashes Nails: normal Neuro General: oriented to person, oriented to place and oriented to time Cranial nerves: Yes Equal, round and reactive pupils present and Yes Normal hearing present Speech: No Abnormal speech present Extrem General: Yes normal to inspection, No clubbing, No cyanosis and No edema Psych Thought process: Normal thought process present and not confabulating Thought content: Normal thought content present Insight: Good insight present (Psych) Judgement: Good judgement present (Psych) Results Reviewed Results Reviewed: X-ray of the thoracic cervical spine and coccyx 03/19/24 C-SPINE FINDINGS: There are no prevertebral soft tissue or bony abnormalities demonstrated. No compression fractures or subluxations are identified. Alignment is maintained at the atlanto-axial articulation. The disc spaces are preserved. No endplate changes are seen. The prevertebral soft tissues are normal. The foramina are patent. XR/XR cervical spine 2V IMPRESSION: Unremarkable examination. * T-SPINE FINDINGS: The vertebral alignment is normal. No intrinsic bony abnormality. The disc heights and neural foramina are well maintained. The endplates and posterior elements are normal. No fracture or subluxation. The surrounding prevertebral soft tissues are unremarkable. XR/XR thoracic spine 2V IMPRESSION: No compression fractures or subluxations are identified. The disc spaces are preserved. No endplate changes are seen. The prevertebral soft tissues are normal. The foramina are patent. * COCCYX FINDINGS: There are no fractures. No bone, joint or soft tissue abnormality is demonstrated. XR/XR sacrum coccyx min 2V IMPRESSION: Unremarkable examination. COLONOSCOPY 10/20/24 Findings: Mild melanosis coli noted throughout colon Terminal Ileum-normal Cecum:normal Ascending Colon: x 2 sessile polyps 6-8 mm noted. one removed with cold snare and the other with cold forceps Transverse Colon -normal Descending Colon:normal Sigmoid Colon: 6-8 mm sessile polyp removed with cold snare Rectum: Retroflexion with small internal hemorrhoids seen, grade I, x 3 sessile polyps 5-7 mm removed with cold forceps Anorectum - normal Intervention: cold snare and cold forceps Impression and Post Procedure Diagnosis: melanosis coli colon polyps x5 internal hemorrhoids Plan: High fiber diet leaflet Avoid straining at stool, epsom salts and sitz bath, anusol supps or cream Repeat Colonoscopy in 4-5 years if adenomatous, 10 years if non adenomatous or earlier if clinically indicated BIOPSY Received: 10/20/24 Diagnosis A. Colon, ascending, biopsy and polyp: Sessile serrated lesion/polyp without dysplasia, and colonic mucosa with lamina propria pigmented macrophages consistent with melanosis coli. B. Colon, sigmoid, polyp: Hyperplastic polyp and pigmented lamina propria macrophages consistent with melanosis coli; no adenomatous dysplasia seen. C. Colon, rectal polyps: Hyperplastic polyps, multiple pieces, with pigmented lamina propria macrophages consistent with melanosis col Assessment & Plan Assessment & Plan (1) Coccygeal pain: Code(s): M53.3 - Sacrococcygeal disorders, not elsewhere classified Category: Medical (2) Thoracic back pain: Code(s): M54.6 - Pain in thoracic spine Category: Medical (3) Constipation: Code(s): K59.00 - Constipation, unspecified Category: Medical Plan The procedure should be repeated in 5 years as only one of the polyps was adenomous. The procedure was well tolerated. The results were explained and the patient is agreeable to the follow-up interval as stated. Education was provided to tell any 1st degree relatives about their findings to be sure that they are screened by age 45. Educated that they will be put on a recall list when it is time for their repeat scope but should they move out of state or away from the hospital they will need to remember along with their primary to repeat the procedure in a timely fashion to avoid any adverse complications. Although he is moving his bowels well with the increased Linzess and senna at night he has been noticed increasing cramping in the lower abdomen since the procedure. He tried adding fiber but this did not seem to alleviate the problem. The cramping is worse 1st thing in the morning and it will be a bit sore in the left lower quadrant. I think that this is all in response to the prep so will give him a 10 mg dose of dicyclomine to take in the evening to see if he can call his bowels down. I told him he can play with the dosing and he does not need to take it forever once things get back in step. We reviewed the x-rays of his spine and there does not appear to be any severe arthritis or acute defect. He says he had cortisone injections in his back about 6 years ago when he was in [place]. I recommend that he speak to his primary care provider about this as they can refer him to pain management and they can probably manage this for him since he has already undergone a course of physical therapy. He agrees to a return office visit in 6 months and will call me if this plan is not successful. Medications: New dicyclomine 10 mg PO QID 60 caps 3RF K59.00 - Constipation, unspecified Refilled linaclotide (Linzess) 290 mcg PO QAM 30 caps 6RF K59.00 - Constipation, unspecified sennosides (senna) 17.2 mg (2 x 8.6 mg) PO BEDTIME 180 caps 1RF constipation 90 days K59.00 - Constipation, unspecified Coding Level of Care Code Est Pt Level 4 (12152) Diagnoses Coccygeal pain M53.3 Thoracic back pain M54.6 Constipation K59.00 Time Spent (min) 34
== END 2024-11-04 10:07 | disposition home or self-care (01) ==
LOC: HO.HGI 09:45
PROVIDERS: PCP Nurse Practitioner Family; Visit Provider Nurse Practitioner
DX: M53.3 Sacrococcygeal disorders, not elsewhere classified (principal); M54.6 Pain in thoracic spine; K59.00 Constipation, unspecified
CPT/HCPCS: 99214

== ENCOUNTER → 2024-11-04 09:44 | Outpatient (BNVA) | payer MEDICARE, MEDICAID, SELFPAY | PROVIDERS: PCP Nurse Practitioner Family; Visit Provider Nurse Practitioner | DX: R10.9 Unspecified abdominal pain (principal); K58.1 Irritable bowel syndrome with constipation; M53.3 Sacrococcygeal disorders, not elsewhere classified; M54.6 Pain in thoracic spine | CPT/HCPCS: 99212 ==

== ENCOUNTER 2025-02-02 09:01 | Outpatient (AMB) | payer MEDICARE, MEDICAID, SELFPAY ==
--- NOTE | 2025-02-02 09:04 | MHC.PC.OV ---
Vital Signs 02/02/25 09:05 Height 5 ft 3 in Weight 157 lb BMI 27.8 BP 100/64 Blood Pressure Location Lt brachial Position Sitting Respiration 15 Pulse 72 Pulse Source Pulse Oximeter Temp 98.4 F Temp Source Oral Pulse Oximetry (%) 98 Oxygen Delivery Method Room Air Intake Visit Reasons: PE - see comments Intake Note: Pt is here today for his PE Allergies acetaminophen (Tylenol) Adverse Reaction (Unknown, Verified 02/02/25 09:31) DUE TO LIVER DISEASE dextromethorphan (From NyQuil) Adverse Reaction (Unknown, Verified 02/02/25 09:31) HX OF OVERDOSE doxylamine (From NyQuil) Adverse Reaction (Unknown, Verified 02/02/25 09:31) HX OF OVERDOSE pseudoephedrine (From NyQuil) Adverse Reaction (Unknown, Verified 02/02/25 09:31) HX OF OVERDOSE Medication List - Last Reconciled 02/02/25 by Hermes Stewart, [employer]- albuterol sulfate 90 mcg/actuation 1 inh inhalation QID PRN 30 days amitriptyline 50 mg PO DAILY 90 days buspirone 10 mg PO BID dicyclomine 10 mg PO QID fluticasone propionate 50 mcg/actuation (Flonase Allergy Relief) 1 spray intranasal DAILY hydroxyzine HCl 25 mg PO DAILY PRN linaclotide (Linzess) 290 mcg PO QAM lisinopril 2.5 mg PO DAILY 90 days multivitamin 1 tab PO DAILY pravastatin 20 mg (1/2 x 40 mg) PO DAILY propranolol 20 mg PO BID semaglutide (Ozempic) 1 mg (0.75 mL) subcut QWEEK sennosides (senna) 17.2 mg (2 x 8.6 mg) PO BEDTIME 90 days sumatriptan succinate 50 mg PO Q2H PRN tizanidine 4 mg PO BEDTIME PRN 30 days Tobacco use date assessed: 02/02/25 Dental Screening Dental Screen Date: 02/02/25 Did you have a dental visit in the last 12 months?: Yes Did you have a dental problem in the last 6 months where you did not have access to dental care?: Yes Was dental information given to patient?: Patient has dentist HPI PE - see comments HPI Details History of Present Illness The patient is a 54-year-old male presenting with a physical examination and management of erectile dysfunction. The erectile dysfunction began after his last colon screening in October, and he reports a concurrent lack of libido. He has requested a testosterone evaluation due to these symptoms. The patient has a history of diabetes mellitus, which he states is fairly well controlled. An A1c test is planned to evaluate his current glycemic control. Health Maintenance - Colon cancer screening is up to date as of October. Social History Review of Systems - Genitourinary: Reports erectile dysfunction and lack of libido - Endocrine: Denies symptoms suggestive of hypogonadism other than erectile dysfunction -denies any cp, sob, issues, GI issues, n/v, fevers, chills Physical Exam General: Cooperative, healthy appearing, comfortable, no acute distress and well developed Orientation: Patient oriented x3 Limitations: No limitations Head: Normal to inspection Ears: Hearing grossly normal bilaterally Nose: Normal external nose present Face and sinus: Normal facial exam Eyes: Appearance normal, both eyes and all related structures Neck: Normal visual inspection and Yes full ROM Respiratory: Normal respiratory effort and able to speak in complete sentences. Clear to auscultation bilaterally Cardiovascular: Regular rate and rhythm. Normal S1 and S2 GI: Normal to inspection. Soft to palpation and nontender : Testicles were somewhat nondistended, and no hernias appreciated Skin: No rashes or lesions noted Neuro: Patient oriented x3 Extremities: Feet were intact, bilaterally, positive sensation. Normal to inspection Results Plan The plan involves checking a testosterone level to investigate the erectile dysfunction and lack of libido. An A1c test will also be performed to evaluate diabetes control. Discussion Notes I discussed with the patient the plan to check testosterone levels to address his erectile dysfunction and lack of libido. We also talked about obtaining an A1c test to monitor his diabetes management. Patient Instructions - Follow up for lab results including testosterone and A1c tests. - Monitor blood sugar levels regularly to ensure diabetes remains controlled. [facility] Medical History Encounter for routine adult physical exam with abnormal findings Screening PSA (prostate specific antigen) Pre-op examination Bronchitis Weight loss Elevated fasting blood sugar Newly diagnosed diabetes Fatigue Screening for colon cancer Diabetes Screening for colon cancer Screening for STD (sexually transmitted disease) Screening for HIV (human immunodeficiency virus) Diabetes Night terror PTSD (post-traumatic stress disorder) Migraines Fatty liver HTN (hypertension) Suicidal ideation Depression with anxiety Surgical History Hx of nasal septoplasty History of esophagogastroduodenoscopy (EGD) H/O colonoscopy Hx of cholecystectomy History of appendectomy Hx of right knee surgery History of shoulder surgery Hx of left knee surgery Family History Father No problems noted. Mother No problems noted. Maternal Grandfather Cancer Other Mental health disorder Social History Housing: House Alcohol intake: never Patient Tobacco Use Status: Never used Tobacco e-Cigarette/Vaping Use: Never Used Second Hand Smoke Exposure: Yes service: No Current occupational status: disabled Cognitive needs: No Hearing needs: No Vision needs: Yes Questionnaire PHQ-9 Over the last 2 weeks, how often have you been bothered by any of the following problems? 1. Little interest or pleasure in doing things: more than half the days 2. Feeling down, depressed, or hopeless: more than half the days 3. Trouble falling or staying asleep, or sleeping too much: several days 4. Feeling tired or having little energy: more than half the days 5. Poor appetite or overeating: several days 6. Feeling bad about yourself - or that you are a failure or have let yourself or your family down: more than half the days 7. Trouble concentrating on things, such as reading the newspaper or watching television: more than half the days 8. Moving or speaking so slowly that other people could have noticed. Or the opposite - being so fidgety or restless that you have been moving around a lot more than usual: more than half the days 9. Thoughts that you would be better off or of hurting yourself in some way: not at all Total score: 14 Depression Screening Interpretation: Positive (boaz () saw pt today, denies any si or hi) Depression Screening Follow-up: Existing condition Depression Screening Done: Yes 01960 - PHQ-9 Billing: Yes Source: Developed by Drs. Renny Yepez, Katiuska Hernández, Pradeep Banuelos and colleagues, with an educational arminda from [employer]. Thrive Questionnaire Date Thrive assessed: 01/26/25 I am a: Patient What is your living situation today?: I have a place to live, but I am worried about losing it in the future Within the past 12 months, did the food you bought not last and you didn't have the money to get more?: Often true Within the past 12 months, did you worry whether your food would run out before you got money to buy more?: Often true Do you have trouble paying for medicines?: No Do you have trouble getting transportation to medical appointments?: No Do you have trouble paying your heating and electricity bill?: Yes Do you have trouble taking care of your child, family member or friend?: No Do you have trouble with day-to-day activities such as bathing, preparing meals, shopping, managing finances, etc.?: Yes Are you currently unemployed and looking for a job?: I choose not to answer this question Are you interested in more education?: No Please select the resources that you would like help with: [employer] [place] Currently or been in a relationship where the following occur: I choose not to answer THRIVE Score: 4 AUDIT C Alcohol Use Questionnaire (AUDIT-C) 1. How often do you have a drink containing alcohol?: Never 3. How often do you have six or more drinks on one occasion?: Never Total Score: 0 MAGUI-7 AMB Questionnaire MAGUI-7 Date MAGUI - 7 assessed: 02/02/25 Feeling nervous, anxious, or on edge: 3 = Nearly every day Not being able to stop or control worryin = Nearly every day Worrying too much about different things: 3 = Nearly every day Trouble relaxin = Nearly every day Being so restless that it is hard to sit still: 3 = Nearly every day Becoming easily annoyed or irritable: 3 = Nearly every day Feeling afraid as if something awful might happen: 3 = Nearly every day Total MAGUI-7 score (0-4 normal; 5-9 mild; 10-14 moderate; 15-21 severe): 21 Source: Developed by Drs. Renny Yepez, Katiuska Hernández, Pradeep Banuelos and colleagues, with an educational arminda from [employer]. MAGUI-7 Assessment Billing MAGUI-7 Assessment Tool: MAGUI-7 Assessment 11381 (denies any si or hi, was seen by NERIS doty) today. ) Physical exam (Primary Care) Vital Signs: Last Vital Signs Temp 98.4 F 02/02/25 09:05 Pulse 72 02/02/25 09:05 Resp 15 02/02/25 09:05 BP 100/64 02/02/25 09:05 Pulse Ox 98 02/02/25 09:05 Oxygen Delivery Method Room Air 02/02/25 09:05 BMI result Body Mass Index 27.8 Tobacco/Smoking Status: Tobacco use Status Tobacco use date assessed 02/02/25 02/02/25 09:05 Patient Tobacco Use Status Never used Tobacco 02/02/25 09:05 e-Cigarette/Vaping Use Never Used 02/02/25 09:05 PHQ-9: PHQ-9 Score PHQ-9: Total score 14 02/02/25 09:05 Depression Screening Interpretation: Positive (boaz () saw pt today, denies any si or hi) Depression Screening Follow-up: Existing condition Thrive Assessment: Date of Thrive Assessment Date Thrive assessed 01/26/25 02/02/25 09:05 Currently or been in a relationship where the following occur: I choose not to answer Coding Level of Care Code Est Pt Level 3 (02636) Est Pt Prev Care 40-64y(54040) Diagnoses Diabetes E11.9 Screening PSA (prostate specific antigen) Z12.5 Encounter for routine adult physical exam with abnormal findings Z00.01 Erectile dysfunction N52.9 Additional Codes PHQ-9 - 38360 - PHQ-9 Billing: Yes ([id number]) MAGUI-7 Assessment Billing - MAGUI-7 Assessment Tool: MAGUI-7 Assessment 60705 ([id number]) Assessment & Plan Assessment & Plan (1) Diabetes: Code(s): E11.9 - Type 2 diabetes mellitus without complications Category: Medical (2) Screening PSA (prostate specific antigen): Code(s): Z12.5 - Encounter for screening for malignant neoplasm of prostate Category: Medical (3) Encounter for routine adult physical exam with abnormal findings: Code(s): Z00.01 - Encounter for general adult medical examination with abnormal findings Category: Medical (4) Erectile dysfunction: Code(s): N52.9 - Male erectile dysfunction, unspecified Category: Medical Plan . Orders: Orders Complete Blood Count Auto Diff Today E11.9 - Type 2 diabetes mellitus without complications Comprehensive [place]. Panel Fast Today E11.9 - Type 2 diabetes mellitus without complications Lipid Panel Today E11.9 - Type 2 diabetes mellitus without complications Microalbumin, Random (w Creat) Today E11.9 - Type 2 diabetes mellitus without complications Testosterone, Free/Total Today N52.9 - Male erectile dysfunction, unspecified Hemoglobin A1c Today E11.9 - Type 2 diabetes mellitus without complications TSH reflex Free T4 Today E11.9 - Type 2 diabetes mellitus without complications UA CC w/rflx Micro + Cult Today E11.9 - Type 2 diabetes mellitus without complications Prostate Specific Antigen Scr Today Z12.5 - Encounter for screening for malignant neoplasm of prostate
[2025-02-02 09:05] VITALS: BP 100/64; PULSE 72; RESP 15; TEMP 36.9; O2SAT 98; BMI 27.8
--- OUTSIDE RECORDS SUMMARY | 2025-02-02 09:33 | XMS_ITS | Patient Health Record ---
Author Organization [facility] Address [address] [place] [id number] Care Team Providers Care Histology Specialist Name Role Phone Renny Duarte Unavailable [phone] Reason For Referral No Information Plan Of Treatment No Information
== END 2025-02-02 09:47 | disposition home or self-care (01) ==
LOC: HO.HMCC 09:02
PROVIDERS: PCP Nurse Practitioner Family; Visit Provider Nurse Practitioner Family
DX: Z00.00 Encounter for general adult medical examination without abnormal findings (principal); E11.9 Type 2 diabetes mellitus without complications; Z12.5 Encounter for screening for malignant neoplasm of prostate; N52.9 Male erectile dysfunction, unspecified

== ENCOUNTER → 2025-02-02 09:01 | Outpatient (BNVA) | payer MEDICARE, MEDICAID, SELFPAY | PROVIDERS: PCP Nurse Practitioner Family; Visit Provider Nurse Practitioner Family | DX: Z00.01 Encounter for general adult medical examination with abnormal findings (principal); E11.9 Type 2 diabetes mellitus without complications; N52.9 Male erectile dysfunction, unspecified; I10 Essential (primary) hypertension; F41.1 Generalized anxiety disorder | CPT/HCPCS: 96127; 99212; 99396 ==

== ENCOUNTER 2025-02-04 06:04 | Outpatient (REF) | payer MEDICARE, MEDICAID, SELFPAY ==
[2025-02-04 09:54] LABS: MANUAL DIFF FLAG NO
[2025-02-04 10:09] LABS: Basophils Percent Auto 0.7 % (0-2); Eosinophils Absolute Auto 0.2 X10*3/uL (0.0-0.4); Eosinophils Percent Auto 4.2 % (0-4); Hematocrit 42.5 % (42.0-52.0); Hemoglobin 14.7 g/dl (14.0-18.0); Imm Gran Abs Auto 0.01 X10*3/uL (0.00-0.03); Imm Gran Pct Auto 0.2 % (0.0-0.4); Lymphocytes Absolute Auto 2.6 X10*3/uL (1.2-4.9); Lymphocytes Percent Auto 45.5 % (20-40); Mean Corpuscular HGB Conc 34.6 g/dl (31.0-36.0); Mean Corpuscular Hemoglobin 31.3 pg (27.0-33.0); Mean Corpuscular Volume 90.6 fL (80.0-98.0); Mean Platelet Volume 10.5 fL (9.4-12.4); Monocytes Absolute Auto 0.7 X10*3/uL (0.1-1.2); Monocytes Percent Auto 12.1 % (2-11); Neutrophils Absolute Auto 2.1 x10*3/uL (2.0-8.3); Neutrophils Percent Auto 37.3 % (45-73); Platelet Count 180 X10*3/uL (160-400); Red Blood Count 4.69 X10*6/uL (4.60-5.80); Red Cell Distribution Width 12.7 % (11.0-16.0); White Blood Count 5.7 X10*3/uL (4.8-10.8)
[2025-02-04 10:20] LABS: Estimated Average Glucose 103 mg/dL; Hemoglobin A1C 124.3548 umol/L; Hemoglobin A1c % 5.2 % (<6.0); Total Hemoglobin (HGBA1C) 3792.8731 umol/L
[2025-02-04 10:27] LABS: Alanine Aminotransferase 39 U/L (0-40); Albumin Level 4.4 g/dL (3.5-5.0); Alkaline Phosphatase 59 U/L (39-117); Anion Gap 11 (12-20); Aspartate Amino Transferase 38 U/L (5-37); Bilirubin Total 0.8 mg/dL (0.0-1.0); Blood Urea Nitrogen 15 mg/dL (9-16); Calcium 9.9 mg/dL (8.4-10.2); Carbon Dioxide 27 mmol/L (22-29); Chloride 105 mmol/L (96-108); Cholesterol 169 mg/dL (<200); Estimated Glomerular Filt Rate > 60; Glucose Fasting 90 mg/dL (60-99); HDL Cholesterol 34 mg/dL (>40); LDL Cholesterol Calculated 110 mg/dL (<100); Potassium 4.2 mmol/L (3.3-5.1); Sodium 139 mmol/L (135-145); Total Protein 7.9 g/dL (6.5-8.0); Triglycerides 128 mg/dL (<150)
[2025-02-04 10:42] LABS: Prostate Specific Antigen Scr 0.32 ng/mL (<0.05-4.0); TSH reflex Free T4 3.56 uIU/mL (0.32-4.0)
[2025-02-04 11:01] LABS: Appearance Urine Clear; Color Urine Dark Yellow; Glucose Urine UA Negative (Negative); Leukocyte Esterase Urine Negative (Negative); Nitrite Urine Negative (Negative); PH 5.5 (5.0-9.0); Urine Blood Negative (Negative); Urine Ketones Negative (Negative); Urine Protein Negative (Neg-Trace)
[2025-02-04 11:37] LABS: Creatinine Urine 172.89 mg/dL; Microalbum/Creatinine Ratio Ur 12.1 ug/mg cr (<30)
[2025-02-09 17:02] LABS: Testosterone, Free 67.1 pg/mL (35.0-155.0); Testosterone, Total 780 ng/dL (250-1100)
== END 2025-02-04 06:05 | disposition home or self-care (01) ==
LOC: HO.HMGCLDS 06:04
PROVIDERS: PCP Nurse Practitioner Family; Visit Provider Nurse Practitioner Family
DX: E11.9 Type 2 diabetes mellitus without complications (principal); N52.9 Male erectile dysfunction, unspecified; Z12.5 Encounter for screening for malignant neoplasm of prostate
CPT/HCPCS: 36415; 80053; 80061; 81003; 82043; 82570; 83036; 84153; 84402; 84403; 84443; 85025

== ENCOUNTER 2025-02-10 08:29 | Outpatient (AMB) | payer MEDICARE, MEDICAID, SELFPAY ==
--- OUTSIDE RECORDS SUMMARY | 2025-02-10 08:33 | XMS_ITS | Patient Health Record ---
Author Organization [facility] Address [address] [place] [id number] Care Team Providers Care Efficiency Engineer Name Role Phone Renny Duarte Unavailable [phone] Reason For Referral No Information Plan Of Treatment No Information
--- NOTE | 2025-02-10 08:37 | AM.OFFWIN_ITS ---
Intake Vital Signs 02/10/25 08:42 Height 5 ft 3 in Weight 156 lb BMI 27.6 BP 84/60 L Blood Pressure Location Rt brachial Position Sitting Pulse 75 Pulse Source Pulse Oximeter Temp 98.1 F Temp Source Oral Pulse Oximetry (%) 98 Oxygen Delivery Method Room Air Intake Visit Reasons: EP bilat ear ache Intake Note: presents with bilateral ear pain, itching, right sided throat pain, headache. states he is finding scab like lesions in his ears when he touches the insides x1 mo Patient Tobacco Use Status: Never used Tobacco Allergies acetaminophen (Tylenol) Adverse Reaction (Unknown, Verified 02/10/25 08:44) DUE TO LIVER DISEASE dextromethorphan (From NyQuil) Adverse Reaction (Unknown, Verified 02/10/25 08:44) HX OF OVERDOSE doxylamine (From NyQuil) Adverse Reaction (Unknown, Verified 02/10/25 08:44) HX OF OVERDOSE pseudoephedrine (From NyQuil) Adverse Reaction (Unknown, Verified 02/10/25 08:44) HX OF OVERDOSE Do you need a note to return to daycare/school/sports/work: No HPI HPI Comments History of Present Illness Details History - The patient is a 54-year-old male pres enting with ear pain. - The earache has been present for longe r than a week without associated cold or congestion. - The pain is a pressure in the right ea r and it radiates to the side of the head. - The pain is worse in the right than th e left. - There is no ear discharge noted in the ears. - No history of swimming in a [place] or po ol, and no sore throat or fever reported. - He denies hearing loss, sick contacts, GARRETT, dizziness, cough, CP, or SOB. Physical Exam General: Cooperative, healthy appearing, comfortable, no acute distress and well developed Head: Normal to inspection Ears: External ears normal bilaterally. No tragus or mastoid tenderness noted. Cerumen noted in both canals. TM's not visualized. Face and sinus: Normal facial exam. No TTP of the sinuses. Neck: Normal visual inspection. Full ROM. No lymphadenopathy noted. Respiratory: Normal respiratory effort and able to speak in complete sentences. Clear to auscultation bilaterally. No w/r/r noted. Cardiac: RRR, no m/r/g noted. Normal S1 and S2 noted. Skin: No rashes or lesions noted Neuro: Patient oriented x3 Rechecked ears after irrigation- left was normal, right TM was erythematous and slightly bulging. Patient was informed and verbally consented to the use of an ambient scribe for clinic note documentation during this visit. [facility] Medical History Encounter for routine adult physical exam with abnormal findings Screening PSA (prostate specific antigen) Pre-op examination Bronchitis Weight loss Elevated fasting blood sugar Newly diagnosed diabetes Fatigue Screening for colon cancer Diabetes Screening for colon cancer Screening for STD (sexually transmitted disease) Screening for HIV (human immunodeficiency virus) Diabetes Night terror PTSD (post-traumatic stress disorder) Migraines Fatty liver HTN (hypertension) Suicidal ideation Depression with anxiety Surgical History Hx of nasal septoplasty History of esophagogastroduodenoscopy (EGD) H/O colonoscopy Hx of cholecystectomy History of appendectomy Hx of right knee surgery History of shoulder surgery Hx of left knee surgery Family History Father No problems noted. Mother No problems noted. Maternal Grandfather Cancer Other Mental health disorder Social History Housing: House Alcohol intake: never Patient Tobacco Use Status: Never used Tobacco e-Cigarette/Vaping Use: Never Used Second Hand Smoke Exposure: Yes service: No Current occupational status: disabled Cognitive needs: No Hearing needs: No Vision needs: Yes Review of Systems Const All systems reviewed & are unremarkable except as noted in HPI and below Physical Exam Vital Signs: Last Vital Signs Temp 98.1 F 02/10/25 08:42 Pulse 75 02/10/25 08:42 BP 84/60 L 02/10/25 08:42 Pulse Ox 98 02/10/25 08:42 Oxygen Delivery Method Room Air 02/10/25 08:42 BMI result Body Mass Index 27.6 Office Procedures Cerumen Removal From which ear canal was the cerumen removed: bilateral Removal: irrigation Notes: patient tolerated procedure well [id number] Irrigation/Lavage Assessment & Plan Assessment & Plan (1) Ear pain: Code(s): H92.09 - Otalgia, unspecified ear Qualifiers: Laterality: bilateral Qualified Code(s): H92.03 - Otalgia, bilateral Plan Most likely cerumen impaction vs OM vs OE Plan - Plan to flush out ear wax from both ears to alleviate symptoms. - Augmentin BID for 7 days for OM - Avoid q-tips in the ears - can refer to ENT if needed - follow up with PCP Orders: Orders AMB Cerumen Removal Today H61.23 - Impacted cerumen, bilateral Medications: New amoxicillin-pot clavulanate 875-125 mg 1 tab PO Q12H 14 tabs 0RF 7 days Coding Level of Care Code Est Pt Level 3 (51907) Diagnoses Otalgia of both ears H92.03 Laterality: bilateral CPT Codes Office Procedure - CPT: 53534-Dkb Irrigation/Lavage ([id number])
[2025-02-10 08:42] VITALS: BP 84/60; PULSE 75; TEMP 36.7; O2SAT 98; BMI 27.6
== END 2025-02-10 10:04 | disposition home or self-care (01) ==
PROVIDERS: PCP Nurse Practitioner Family; Visit Provider Physician Assistant Medical
DX: H92.03 Otalgia, bilateral (principal)

== ENCOUNTER → 2025-02-10 08:29 | Outpatient (BNVA) | payer MEDICARE, MEDICAID, SELFPAY | PROVIDERS: PCP Nurse Practitioner Family; Visit Provider Physician Assistant Medical | DX: H92.03 Otalgia, bilateral (principal); H61.23 Impacted cerumen, bilateral | CPT/HCPCS: 69209; 99212 ==

== ENCOUNTER 2025-02-24 06:45 | Outpatient (AMB) | payer MEDICARE, MEDICAID, SELFPAY ==
--- OUTSIDE RECORDS SUMMARY | 2025-02-24 06:48 | XMS_ITS | Patient Health Record ---
Author Organization [facility] Address [address] [place] [id number] Care Team Providers Care Bulldozer Operator Name Role Phone Renny Duarte Unavailable [phone] Reason For Referral No Information Plan Of Treatment No Information
--- NOTE | 2025-02-24 07:32 | A.OFFPC_ITS ---
Intake Visit Reasons: ENT referral Allergies acetaminophen (Tylenol) Adverse Reaction (Unknown, Verified 02/24/25 07:33) DUE TO LIVER DISEASE dextromethorphan (From NyQuil) Adverse Reaction (Unknown, Verified 02/24/25 07:33) HX OF OVERDOSE doxylamine (From NyQuil) Adverse Reaction (Unknown, Verified 02/24/25 07:33) HX OF OVERDOSE pseudoephedrine (From NyQuil) Adverse Reaction (Unknown, Verified 02/24/25 07:33) HX OF OVERDOSE Medication List - Last Reconciled 02/24/25 by Hermes Stewart, [facility] amitriptyline 50 mg PO DAILY 90 days amoxicillin-pot clavulanate 875-125 mg 1 tab PO Q12H 7 days buspirone 10 mg PO BID dicyclomine 10 mg PO QID fluticasone propionate 50 mcg/actuation (Flonase Allergy Relief) 1 spray intranasal DAILY hydroxyzine HCl 25 mg PO DAILY PRN linaclotide (Linzess) 290 mcg PO QAM lisinopril 2.5 mg PO DAILY 90 days multivitamin 1 tab PO DAILY pravastatin 20 mg (1/2 x 40 mg) PO DAILY propranolol 20 mg PO BID semaglutide (Ozempic) 1 mg (0.75 mL) subcut QWEEK sennosides (senna) 17.2 mg (2 x 8.6 mg) PO BEDTIME 90 days sumatriptan succinate 50 mg PO Q2H PRN tizanidine 4 mg PO BEDTIME PRN 30 days Tobacco use date assessed: 02/02/25 Dental Screening Dental Screen Date: 02/02/25 HPI ENT referral HPI Details History of Present Illness The patient is a 54-year-old male presenting with bilateral earaches and ear discharge. The symptoms began prior to the telehealth visit on 02/10/2025, with the patient experiencing discomfort in both ears. He denies any history of tob acco use and does not swim in pools, which could be potential contributing factors. The patient denies experiencing any fevers, chills, dizziness, nausea, or vomiting. Initially, his ears were noted to be flushed bilaterally due to cerumen, and he was prescribed Augmentin for suspected otitis media/otitis externa on the right side. However, the Augmentin did not alleviate his discomfort, and he reports clear fluid discharge from his ears??? Review of Systems - General: Denies fevers or chills. - ENT: Reports bilateral earaches and cl ear fluid discharge. Denies dizziness. - Gastrointestinal: Denies nausea or vom iting. PE: appears in no acute distress Plan The patient will be referred to an tip length checker (ENT) for further evaluation and management of his ear conditions. He is advised to seek emergency treatment if any concerning symptoms arise. Discussion Notes I discussed with the patient the likely diagnosis of otitis media and otitis externa, and the need for further evaluation by an ENT specialist. I advised him to monitor for any worsening symptoms and to seek emergency care if necessary. Patient Instructions - Follow up with an ENT specialist for f urther evaluation. - Seek emergency care if symptoms worsen or new symptoms develop. [facility] Medical History Encounter for routine adult physical exam with abnormal findings Screening PSA (prostate specific antigen) Pre-op examination Bronchitis Weight loss Elevated fasting blood sugar Newly diagnosed diabetes Fatigue Screening for colon cancer Diabetes Screening for colon cancer Screening for STD (sexually transmitted disease) Screening for HIV (human immunodeficiency virus) Diabetes Night terror PTSD (post-traumatic stress disorder) Migraines Fatty liver HTN (hypertension) Suicidal ideation Depression with anxiety Surgical History Hx of nasal septoplasty History of esophagogastroduodenoscopy (EGD) H/O colonoscopy Hx of cholecystectomy History of appendectomy Hx of right knee surgery History of shoulder surgery Hx of left knee surgery Family History Father No problems noted. Mother No problems noted. Maternal Grandfather Cancer Other Mental health disorder Social History Housing: House Alcohol intake: never Patient Tobacco Use Status: Never used Tobacco e-Cigarette/Vaping Use: Never Used Second Hand Smoke Exposure: Yes service: No Current occupational status: disabled Cognitive needs: No Hearing needs: No Vision needs: Yes Questionnaire Thrive Questionnaire Date Thrive assessed: 01/26/25 I am a: Patient What is your living situation today?: I have a place to live, but I am worried about losing it in the future Within the past 12 months, did the food you bought not last and you didn't have the money to get more?: Often true Within the past 12 months, did you worry whether your food would run out before you got money to buy more?: Often true Do you have trouble paying for medicines?: No Do you have trouble getting transportation to medical appointments?: No Do you have trouble paying your heating and electricity bill?: Yes Do you have trouble taking care of your child, family member or friend?: No Do you have trouble with day-to-day activities such as bathing, preparing meals, shopping, managing finances, etc.?: Yes Are you currently unemployed and looking for a job?: I choose not to answer this question Are you interested in more education?: No Currently or been in a relationship where the following occur: I choose not to answer THRIVE Score: 4 MAGUI-7 AMB Questionnaire MAGUI-7 Date MAGUI - 7 assessed: 02/02/25 Source: Developed by Drs. Renny Yepez, Katiuska Hernández, Pradeep Banuelos and colleagues, with an educational arminda from [email or web address]. Physical exam (Primary Care) Tobacco/Smoking Status: Tobacco use Status Tobacco use date assessed 02/02/25 02/02/25 09:05 Patient Tobacco Use Status Never used Tobacco 02/10/25 08:38 e-Cigarette/Vaping Use Never Used 02/02/25 09:05 Thrive Assessment: Date of Thrive Assessment Date Thrive assessed 01/26/25 02/02/25 09:40 Currently or been in a relationship where the following occur: I choose not to answer Telehealth Telehealth [facility]health [facility] Location of provider rendering services: practice address Location of patient: address on file Patient Identification confirmed using: Name, : Yes Telehealth method: video Patient verbally consented to treatment: Yes Patient verbally consented to billing insurance company: Yes Patient informed of any privacy concerns related to visit: Yes Minutes spent on Phone/Video with Pt.: 10 Coding Level of Care Code Tele Est Pt Level 3 (99787) Diagnoses Chronic ear pain H92.09; G89.29 Assessment & Plan Assessment & Plan (1) Chronic ear pain: Code(s): H92.09 - Otalgia, unspecified ear; G89.29 - Other chronic pain Category: Medical Plan . Orders: Referrals Ear/Nose/Throat Referral G89.29 - Other chronic pain, H92.09 - Otalgia, unspecified ear
== END 2025-02-24 08:47 | disposition home or self-care (01) ==
LOC: HO.HMCC 06:46
PROVIDERS: PCP Nurse Practitioner Family; Visit Provider Nurse Practitioner Family
DX: H92.03 Otalgia, bilateral (principal); G89.29 Other chronic pain

== ENCOUNTER 2025-05-04 09:10 | Outpatient (AMB) | payer MEDICARE, MEDICAID, SELFPAY ==
--- NOTE | 2025-05-04 09:17 | A.OFFVIS_ITS ---
Vital Signs 05/04/25 09:32 Height 5 ft 3 in Weight 163 lb 2.273 oz BMI 28.9 BP 107/74 Blood Pressure Location Lt brachial Position Sitting Pulse 70 Intake Visit Reasons: CIC, Cramping 6 mo f/u Intake Note: Marcial presents in office today in 6 months follow up of CIC. CC: Patient reports having constipation some days, upset stomach, and abd cramping almost every day. He also c/o nausea. Head Of Physics Required: No Accompanied by: Self / Same As Patient Allergies acetaminophen (Tylenol) Adverse Reaction (Unknown, Verified 05/04/25 09:34) DUE TO LIVER DISEASE dextromethorphan (From NyQuil) Adverse Reaction (Unknown, Verified 05/04/25 09:34) HX OF OVERDOSE doxylamine (From NyQuil) Adverse Reaction (Unknown, Verified 05/04/25 09:34) HX OF OVERDOSE pseudoephedrine (From NyQuil) Adverse Reaction (Unknown, Verified 05/04/25 09:34) HX OF OVERDOSE HPI HPI CIC, Cramping 6 mo f/u: Details: Assessment & Plan (1) Coccygeal pain: Code(s): M53.3 - Sacrococcygeal disorders, not elsewhere classified Category: Medical (2) Thoracic back pain: Code(s): M54.6 - Pain in thoracic spine Category: Medical (3) Constipation: Code(s): K59.00 - Constipation, unspecified Category: Medical Plan The procedure should be repeated in 5 years as only one of the polyps was a denomous. The procedure was well tolerated. The results were explained and the patient is agreeable to the follow-up interval as stated. Education was provided to tell any 1st degree relatives about their findings to be sure that they are screened by age 45. Educated that they will be put on a recall list when it is time for their repeat scope but should they move out of state or away from the hospital they will need to remember along with their primary to repeat the procedure in a timely fashion to avoid any adverse complications. Although he is moving his bowels well with the increased Linzess and senna at night he has been noticed increasing cramping in the lower abdomen since the procedure. He tried adding fiber but this did not seem to alleviate the problem. The cramping is worse 1st thing in the morning and it will be a bit sore in the left lower quadrant. I think that this is all in response to the prep so will give him a 10 mg dose of dicyclomine to take in the evening to see if he can call his bowels down. I told him he can play with the dosing and he does not need to take it forever once things get back in step. We reviewed the x-rays of his spine and there does not appear to be any severe arthritis or acute defect. He says he had cortisone injections in his back about 6 years ago when he was in [place]. I recommend that he speak to his primary care provider about this as they can refer him to pain management and they can probably manage this for him since he has already undergone a course of physical therapy. He agrees to a return office visit in 6 months and will call me if this plan is not successful. Medications: New dicyclomine 10 mg PO QID 60 caps 3RF K59.00 - Constipation, unspecified Refilled linaclotide (Linzess) 290 mcg PO QAM 30 caps 6RF K59.00 - Constipation, unspecified sennosides (senna) 17.2 mg (2 x 8.6 mg) PO BEDTIME 180 caps 1RF constipation 90 days K59.00 - Constipation, unspecified TODAY'S VISIT [facility] Medical History (Updated 05/04/25 @ 09:19 by NATHALIE Moran) Elevated liver enzymes Screening PSA (prostate specific antigen) Encounter for routine adult physical exam with abnormal findings Pre-op examination Bronchitis Weight loss Elevated fasting blood sugar Newly diagnosed diabetes Fatigue Screening for colon cancer Diabetes Screening for colon cancer Screening for STD (sexually transmitted disease) Screening for HIV (human immunodeficiency virus) Diabetes Night terror PTSD (post-traumatic stress disorder) Migraines Fatty liver HTN (hypertension) Suicidal ideation Depression with anxiety Surgical History Hx of nasal septoplasty History of esophagogastroduodenoscopy (EGD) H/O colonoscopy Hx of cholecystectomy History of appendectomy Hx of right knee surgery History of shoulder surgery Hx of left knee surgery Family History Father No problems noted. Mother No problems noted. Maternal Grandfather Cancer Other Mental health disorder Social History Housing: House Alcohol intake: never Patient Tobacco Use Status: Never used Tobacco e-Cigarette/Vaping Use: Never Used Second Hand Smoke Exposure: Yes service: No Current occupational status: disabled Cognitive needs: No Hearing needs: No Vision needs: Yes Review of Systems Const Denies fatigue, Denies fever(s), Denies night sweats, Denies poor appetite, Reports weight gain and Reports weight loss Eyes Details: glasses Reports requires corrective lenses ENT Reports Normal hearing present, Denies dental pain, Denies dysphagia, Denies hearing loss, Denies mouth pain, Denies odynophagia, Denies throat swelling, Denies tongue swelling and Reports other (Dentition adequate) Card Reports no additional complaints Resp Reports no additional complaints GI Details: Denies abdominal pain, Denies melena, Denies bloating, Denies hematochezia, Reports constipation, Reports GI cramping, Denies dysphagia, Denies excessive flatus, Denies early satiety, Denies heartburn, Denies diarrhea, Denies nausea, Denies odynophagia, Denies vomiting and Denies hematemesis Reports erectile dysfunction Skin/Breast Denies pruritus, Denies lesions, Denies rash and Denies jaundice Neuro Reports Normal hearing present and Denies Abnormal speech present Endo Denies fatigue Aller/Immun Denies throat swelling and Denies tongue swelling Physical Exam Vital Signs: Last Vital Signs Pulse 70 05/04/25 09:32 BP 107/74 05/04/25 09:32 BMI result Body Mass Index 28.9 Const General: cooperative, no acute distress, well developed and well groomed Nutritional Appearance: average body habitus and well nourished Orientation/consciousness: oriented to person, oriented to place and oriented to time Limitations: No language barrier HEENT Head: Yes normocephalic and Yes atraumatic Eyes General: appearance normal, both eyes and all related structures Pupils: Equal, round and reactive pupils present Neck Neck: Yes normal visual inspection and Yes no lymphadenopathy Thyroid: Thyroid normal Resp Effort & Inspection: normal respiratory effort and able to speak in complete sentences Auscultation: clear to auscultation bilaterally Cardio Rate: regular rate Rhythm: regular rhythm Heart sounds: Normal, physiologic split S2 sound present Peripheral pulses: radial pulses present and posterior tibial pulses present GI Inspection: No distended and No Abdominal panniculus present Palpation (GI): Soft to palpation, nontender, no guarding, not rigid and No hepatosplenomegaly present Percussion: Yes normal to percussion Auscultation: normal bowel sounds Rectal Exam - Male: Yes deferred Skin General skin exam: no rashes or lesions noted, turgor normal, skin not dry, no jaundice, No spider nevi and no striae Rashes: no rashes Nails: normal Neuro General: oriented to person, oriented to place and oriented to time Cranial nerves: Yes Equal, round and reactive pupils present and Yes Normal hearing present Speech: No Abnormal speech present Extrem General: Yes normal to inspection, No clubbing, No cyanosis and No edema Psych Appearance: grossly normal and well kempt Mental Status: mental status grossly normal Speech and movement: Normal speech and movement present Affect: normal affect Attitude: cooperative Thought process: Normal thought process present and not confabulating Thought content: Normal thought content present Insight: Limited insight present (Psych) Judgement: Limited judgement present (Psych) Assessment & Plan Assessment & Plan (1) Constipation: Code(s): K59.00 - Constipation, unspecified Category: Medical (2) Erectile dysfunction: Code(s): N52.9 - Male erectile dysfunction, unspecified Category: Medical Plan His current GI regimen consists of Linzess 290 micro g and senna. Apparently the dicyclomine was too high it co-pay for him so he has not been utilizing this for cramping. - The patient is a 55-year-old male presenting with management of chronic constipation and related symptoms. - Persistent constipation with hard stools, partially treated with Linzess and Senna. Reports inadequate response, notes constipation persists despite current regimen. Confounding factors for his difficult constipation include his use of Ozempic, amitriptyline, hydroxyzine, and perhaps propranolol. He walks for exercise which is good and says he maintains a good intake of fiber and fluids. His TSH was high normal at 3.54 in January. - Abdominal cramping occasionally mitigated by Dicyclomine, but availability affected by cost. - Ongoing treatment with Ozempic for long-standing Type 2 Diabetes, which is exacerbating gastrointestinal motility issues, possibly contributing to bowel movement difficulties. - Prior use of magnesium citrate viewed as overly harsh, and reports episodic use of saline enemas for relief. He will continue Linzess 290 micro g will hold the senna and progress to bisacodyl 2 tablets at bedtime. We will continue to titrate this to affect her side effect. He has a doorknob complaint of erectile dysfunction. Apparently he told his primary care provider about this and they did some labs to check his testosterone levels but then there was no other interventions provided. I suggested a referral to Urology as they commonly deal with the source of problems. That way perhaps they can determine if there is any underlying cause that is reversible. If not, they can recommend the best treatment to give him quality of life. Return office visit in 4 weeks Orders: Referrals Urology Referral N52.9 - Male erectile dysfunction, unspecified Medications: New bisacodyl (Dulcolax (bisacodyl)) 10 mg (2 x 5 mg) PO BEDTIME 60 tabs 6RF 30 days K59.00 - Constipation, unspecified Refilled linaclotide (Linzess) 290 mcg PO QAM 30 caps 6RF K59.00 - Constipation, unspecified dicyclomine 10 mg PO QID 60 caps 3RF K59.00 - Constipation, unspecified On Hold sennosides (senna) Hold Comment: Doctor's Order 17.2 mg (2 x 8.6 mg) PO BEDTIME 90 days 180 caps 1RF constipation K59.00 - Constipation, unspecified Coding Level of Care Code Est Pt Level 4 (12043) Diagnoses Constipation K59.00 Erectile dysfunction N52.9 Time Spent (min) 35
[2025-05-04 09:32] VITALS: BP 107/74; PULSE 70; BMI 28.9
--- OUTSIDE RECORDS SUMMARY | 2025-05-04 10:42 | XMS_ITS | Patient Health Record ---
Author Organization [facility] Address [address] [place] [id number] Care Team Providers Care Coach Mechanic Name Role Phone Renny Duarte Unavailable [phone] Reason For Referral No Information Plan Of Treatment No Information
== END 2025-05-04 10:13 | disposition home or self-care (01) ==
LOC: HO.HGI 09:11
PROVIDERS: PCP Nurse Practitioner Family; Visit Provider Nurse Practitioner
DX: K59.00 Constipation, unspecified (principal); N52.9 Male erectile dysfunction, unspecified
CPT/HCPCS: 99214

== ENCOUNTER → 2025-05-04 09:10 | Outpatient (BNVA) | payer MEDICARE, MEDICAID, SELFPAY | PROVIDERS: PCP Nurse Practitioner Family; Visit Provider Nurse Practitioner | DX: K59.04 Chronic idiopathic constipation (principal); N52.9 Male erectile dysfunction, unspecified | CPT/HCPCS: 99212 ==

== ENCOUNTER 2025-07-19 10:24 | Outpatient (AMB) | payer MEDICARE, MEDICAID, SELFPAY ==
[2025-07-19 10:27] VITALS: BP 118/75; PULSE 83; RESP 16; TEMP 37; O2SAT 99; BMI 28.3
--- NOTE | 2025-07-19 10:27 | AM.OFFWIN_ITS ---
Intake Vital Signs 07/19/25 10:27 Height 5 ft 3 in Weight 160 lb BMI 28.3 BP 118/75 Blood Pressure Location Lt brachial Position Sitting Respiration 16 Pulse 83 Pulse Source Pulse Oximeter Temp 98.6 F Temp Source Oral Pulse Oximetry (%) 99 Oxygen Delivery Method Room Air Intake Visit Reasons: EP - Body Aches, Fever, Intake Note: EP complains of sore throat, earache, body-ache and cough productive (red-dark) started in Jul 07. Patient Tobacco Use Status: Never used Tobacco Allergies acetaminophen (Tylenol) Adverse Reaction (Unknown, Verified 07/19/25 10:36) DUE TO LIVER DISEASE dextromethorphan (From NyQuil) Adverse Reaction (Unknown, Verified 07/19/25 10:36) HX OF OVERDOSE doxylamine (From NyQuil) Adverse Reaction (Unknown, Verified 07/19/25 10:36) HX OF OVERDOSE pseudoephedrine (From NyQuil) Adverse Reaction (Unknown, Verified 07/19/25 10:36) HX OF OVERDOSE Medication List - Last Reconciled 07/19/25 by Geri Zamudio MD albuterol sulfate 90 mcg/actuation 1 puff inhalation Q6H PRN amitriptyline 50 mg PO DAILY 90 days benzonatate 100 mg PO TID PRN bisacodyl (Dulcolax (bisacodyl)) 10 mg (2 x 5 mg) PO BEDTIME 30 days buspirone 10 mg PO BID fluticasone propionate 50 mcg/actuation (Flonase Allergy Relief) 1 spray intranasal DAILY lisinopril 2.5 mg PO DAILY 90 days multivitamin 1 tab PO DAILY pravastatin 20 mg (1/2 x 40 mg) PO DAILY propranolol 20 mg PO BID semaglutide (Ozempic) 1 mg (0.75 mL) subcut QWEEK sumatriptan succinate 50 mg PO Q2H PRN Do you need a note to return to daycare/school/sports/work: No HPI HPI Comments History of Present Illness Details History of Present Illness The patient is a 55 year old male with a past medical history of diabetes, liver disease, anxiety, hyperlipidemia, migraines presenting with nausea, chills, myalgia and cough. - The patient has been experiencing symp toms since July 07, including nausea, chills, and myalgia. - On Saturday, he had a fever which he b letty was 102 degrees Fahrenheit, for which he took ibuprofen. - He has not had a fever since, but cont inues to have chills. - He reports a primarily dry cough but o ccasionally productive after drinking water. - He reports sputum is reddish, dark gra y, and green sputum - He reports exposure to his granddaught er who recently tested positive for influenza. - He has been taking Allegra [place] Plus f or his symptoms along with a one time dose of flonase a few days ago - He also reports assoicated sore throat and bilateral ear pain - Denies any vomiting or diarrhea. Denie s any shortness of breath. Review of Systems Constitutional: Reports fevers and chills. HENT: Reports congestion, rhinorrhea, sore throat, ear pain. Denies sinus pain or pressure Respiratory: Reports cough. Negative for shortness of breath, chest tightness, wheezing Cardiac: Negative for chest pain Gastrointestinal: Negative for abdominal pain,vomiting, diarrhea, Musculoskeletal: Reports myalgias Physical Exam General Appearance: Normal appearance, well developed. No acute distress ENT: External ears and ear canals WNL. TM without erythema or bulging. Middle ear effusions noted bilaterally. No significant nasal discharge or congestion present. No postnasal drip. Oropharynx clear without erythema or exudate. Head: Normocephalic, atraumatic Pulmonary: No respiratory distress. Clear to auscultation bilaterally. Speaking in full sentences Cardiac: Regular rate and rhythm. No murmurs. Musculoskeletal: Moving all extremities spontaneously and against gravity Mental Status: Alert and Oriented x 3 Psychiatric: Normal mood. Normal affect. [facility] Medical History (Updated 05/04/25 @ 09:19 by NATHALIE Moran) Elevated liver enzymes Screening PSA (prostate specific antigen) Encounter for routine adult physical exam with abnormal findings Pre-op examination Bronchitis Weight loss Elevated fasting blood sugar Newly diagnosed diabetes Fatigue Screening for colon cancer Diabetes Screening for colon cancer Screening for STD (sexually transmitted disease) Screening for HIV (human immunodeficiency virus) Diabetes Night terror PTSD (post-traumatic stress disorder) Migraines Fatty liver HTN (hypertension) Suicidal ideation Depression with anxiety Surgical History Hx of nasal septoplasty History of esophagogastroduodenoscopy (EGD) H/O colonoscopy Hx of cholecystectomy History of appendectomy Hx of right knee surgery History of shoulder surgery Hx of left knee surgery Family History Father No problems noted. Mother No problems noted. Maternal Grandfather Cancer Other Mental health disorder Social History Housing: House Alcohol intake: never Patient Tobacco Use Status: Never used Tobacco e-Cigarette/Vaping Use: Never Used Second Hand Smoke Exposure: Yes service: No Current occupational status: disabled Cognitive needs: No Hearing needs: No Vision needs: Yes Physical Exam Vital Signs: Last Vital Signs Temp 98.6 F 07/19/25 10:27 Pulse 83 07/19/25 10:27 Resp 16 07/19/25 10:27 BP 118/75 07/19/25 10:27 Pulse Ox 99 07/19/25 10:27 Oxygen Delivery Method Room Air 07/19/25 10:27 BMI result Body Mass Index 28.3 Assessment & Plan Assessment & Plan (1) Acute URI: Code(s): J06.9 - Acute upper respiratory infection, unspecified (2) Acute bronchitis: Code(s): J20.9 - Acute bronchitis, unspecified Qualifiers: Bronchitis organism: unspecified organism Qualified Code(s): J20.9 - Acute bronchitis, unspecified Plan - The patient's symptoms are likely secondary to a post-viral infection, given his exposure to his sick granddaughter - However, due to a new onset fever 2 days ago, will obtain chest-xray to rule out pneumonia. Patient states that if his symptoms do not improve by tomorrow, he will have chest xray performed - In the interim, benzonatate was prescribed to help with cough. - Patient reports albuterol inhaler has been helpful in the past for a cough. Albuterol inhaler prescribed to use as needed - Recommended to continue using Flonase as needed to help with Eustachian tube dysfunction and postnasal drainage - The patient was advised to seek immediate medical attention if he develops chest pain, shortness of breath, trouble breathing, or if fevers continue. Patient was informed and verbally consented to the use of an ambient scribe for clinic note documentation during the visit. Orders: Orders XR chest 2V Today R05.9 - Cough, unspecified Medications: New albuterol sulfate 90 mcg/actuation 1 puff inhalation Q6H PRN 6.7 grams 0RF shortness of breath or wheezing or cough benzonatate 100 mg PO TID PRN 14 caps 0RF cough Patient Instructions: You may take benzonatate to help with your cough Get lots of rest. Maintain good clear fluid intake to stay well hydrated. Albuterol inhaler as needed for shortness of breath and cough Recommend continued use of Flonase to help with postnasal drainage If symptoms do not improve, recommend obtaining chest x-ray that was ordered Take ibuprofen as needed for fever or aches, dosage according to package directions If you develop worsening cough, chest pain, shortness of breath, fevers, or chills, please return to the walk in or follow up with PCP. Coding Level of Care Code Est Pt Level 3 (69198) Diagnoses Acute URI J06.9 Acute bronchitis, unspecified organism J20.9 Bronchitis organism: unspecified organism
== END 2025-07-19 11:04 | disposition home or self-care (01) ==
PROVIDERS: PCP Nurse Practitioner Family; Visit Provider Family Medicine
DX: J06.9 Acute upper respiratory infection, unspecified (principal); J20.9 Acute bronchitis, unspecified

== ENCOUNTER → 2025-07-19 10:24 | Outpatient (BNVA) | payer MEDICARE, MEDICAID, SELFPAY | PROVIDERS: PCP Nurse Practitioner Family; Visit Provider Family Medicine | DX: J06.9 Acute upper respiratory infection, unspecified (principal); J20.9 Acute bronchitis, unspecified | CPT/HCPCS: 99212 ==

== ENCOUNTER 2025-07-30 08:01 | Outpatient (REF) | payer MEDICARE, MEDICAID, SELFPAY ==
--- OUTSIDE RECORDS SUMMARY | 2025-07-30 08:08 | XMS_ITS | Patient Health Record ---
Author Organization [facility] Address [address] [place] [id number] Care Team Providers Care Dynamometer Tester Name Role Phone Renny Duarte Unavailable [phone] Reason For Referral No Information Plan Of Treatment No Information
[2025-07-30 15:12] LABS: Appearance Urine Cloudy; Glucose Urine UA Negative (Negative); PH 6.5 (5.0-9.0); Specific Gravity - Urine 1.020 (1.005-1.025)
[2025-07-30 15:14] LABS: MANUAL DIFF FLAG NO
[2025-07-30 15:30] LABS: Hematocrit 41.1 % (42.0-52.0); Hemoglobin 13.6 g/dl (14.0-18.0); Imm Gran Abs Auto 0.04 X10*3/uL (0.00-0.03); Imm Gran Pct Auto 0.6 % (0.0-0.4); Lymphocytes Absolute Auto 2.3 X10*3/uL (1.2-4.9); Mean Corpuscular HGB Conc 33.1 g/dl (31.0-36.0); Mean Corpuscular Hemoglobin 30.5 pg (27.0-33.0); Mean Corpuscular Volume 92.2 fL (80.0-98.0); NRBC Abs Auto 0.000 X10*3/uL (0.0-0.012); NRBC Pct Auto 0.0 /100WBC (0.0-0.2); Platelet Count 329 X10*3/uL (160-400); Red Blood Count 4.46 X10*6/uL (4.60-5.80); White Blood Count 7.2 X10*3/uL (4.8-10.8)
[2025-07-30 16:18] LABS: Alanine Aminotransferase 48 U/L (0-40); Albumin Level 4.2 g/dL (3.5-5.0); Alkaline Phosphatase 87 U/L (39-117); Anion Gap 11 (12-20); Aspartate Amino Transferase 53 U/L (5-37); Blood Urea Nitrogen 14 mg/dL (9-16); Calcium 9.8 mg/dL (8.4-10.2); Carbon Dioxide 26 mmol/L (22-29); Chloride 106 mmol/L (96-108); Cholesterol 134 mg/dL (<200); Estimated Glomerular Filt Rate > 60; HDL Cholesterol 31 mg/dL (>40); Potassium 5.0 mmol/L (3.3-5.1); Sodium 138 mmol/L (135-145); Total Protein 8.1 g/dL (6.5-8.0); Triglycerides 77 mg/dL (<150)
[2025-07-30 16:25] LABS: Hemoglobin A1C 142.0703 umol/L
== END 2025-07-30 08:02 | disposition home or self-care (01) ==
LOC: HO.HKASLDS 08:01
PROVIDERS: PCP Nurse Practitioner Family; Visit Provider Nurse Practitioner Family
DX: E11.9 Type 2 diabetes mellitus without complications (principal)
CPT/HCPCS: 36415; 80053; 80061; 81003; 83036; 84443; 85025

== ENCOUNTER 2025-08-04 09:55 | Outpatient (AMB) | payer MEDICARE, MEDICAID, SELFPAY ==
--- OUTSIDE RECORDS SUMMARY | 2025-08-04 10:04 | XMS_ITS | Patient Health Record ---
Author Organization [facility] Address [address] [place] [phone] Care Team Providers Care Java Front End Web Developer Name Role Phone Renny Duarte Unavailable [phone] Reason For Referral No Information Plan Of Treatment No Information
[2025-08-04 10:05] VITALS: BP 116/74; PULSE 78; RESP 16; O2SAT 97; BMI 27.3
--- NOTE | 2025-08-04 10:05 | A.OFFPC_ITS ---
Vital Signs 08/04/25 10:05 Height 5 ft 3 in Weight 154 lb BMI 27.3 BP 116/74 Blood Pressure Location Lt brachial Position Sitting Respiration 16 Pulse 78 Pulse Source Pulse Oximeter Pulse Oximetry (%) 97 Oxygen Delivery Method Room Air Intake Visit Reasons: 6 months f/up - see comments Cluster Bore Operator Required: No Accompanied by: Self / Same As Patient Allergies acetaminophen (Tylenol) Adverse Reaction (Unknown, Verified 08/04/25 10:06) DUE TO LIVER DISEASE dextromethorphan (From NyQuil) Adverse Reaction (Unknown, Verified 08/04/25 10:06) HX OF OVERDOSE doxylamine (From NyQuil) Adverse Reaction (Unknown, Verified 08/04/25 10:06) HX OF OVERDOSE pseudoephedrine (From NyQuil) Adverse Reaction (Unknown, Verified 08/04/25 10:06) HX OF OVERDOSE Tobacco use date assessed: 08/04/25 Dental Screening Dental Screen Date: 02/02/25 HPI 6 months f/up - see comments HPI Details Chief Complaint The patient presents for a follow-up visit for his diabetes. History of Present Illness The patient is a 55 year old male presenting for a follow-up on his diabetes. His recent A1c was 5.4, and his eye exam is up to date. He reports intermittent neuropathy. He is currently taking a statin for diabetes and dyslipidemia (LDL at 88). He has a history of fatty liver with elevated liver enzymes noted on recent labs. His last imaging for this condition was in 2020. Social History Health Maintenance - The patient's diabetic eye exam is up to date. - Recent A1c was 5.4%. Review of Systems - Cardiovascular: Denies chest pain. - Respiratory: Denies shortness of breat h. - Gastrointestinal: Denies abdominal azeem n. - Neurological: Reports intermittent ishmael ropathy. Physical Exam General: Cooperative, healthy appearing, comfortable, no acute distress and well developed Orientation: Patient oriented x3 Limitations: No limitations Head: Normal to inspection Ears: Hearing grossly normal bilaterally Nose: Normal external nose present Face and sinus: Normal facial exam Eyes: Appearance normal, both eyes and all related structures Neck: Normal visual inspection and Yes full ROM Respiratory: Normal respiratory effort and able to speak in complete sentences. Clear to auscultation bilaterally Cardiovascular: Regular rate and rhythm. Normal S1 and S2 GI: Normal to inspection. Soft to palpation and nontender. Skin: No rashes or lesions noted Neuro: Patient oriented x3. Positive sensation with use of monofilament to bilaterally feet, could feel the vibration with use of tuning fork 128 Hz Extremities: Normal to inspection. Bunion formation bilaterally noted Results - Labs: Recent A1c was 5.4. - Labs: Recent labs revealed elevated li kait enzymes. Plan 1. Diabetes Mellitus The patient's diabetes is well-controlled with a recent A1c of 5.4. He will continue his current statin therapy. 2. Dyslipidemia The patient will continue his current statin therapy for management of dyslipidemia. 3. Fatty Liver And Elevated Liver Enzyme s The patient has a history of fatty liver, with the last imaging performed in 2020, and recent labs show elevated liver enzymes. An abdominal ultrasound and a hepatitis screen will be ordered, and his liver function will be monitored. Discussion Notes I discussed the patient's well-controlled diabetes, highlighted by his recent A1c of 5.4, and confirmed his eye exam is up to date. We also addressed the finding of elevated liver enzymes from his recent lab work. In light of his history of fatty liver, I explained the plan to order a repeat abdominal ultrasound and a hepatitis screen to further evaluate this. We will continue to monitor his liver function, and he will continue his statin medication. Patient Instructions - Continue taking your statin medication as prescribed for your cholesterol and diabetes. - We will arrange for you to have an abd ominal ultrasound to look at your liver. - You will need to get blood work done f or a hepatitis screen. - We will continue to monitor your liver function with blood tests. FOR[facility], LATER [facility] Medical History (Updated 08/04/25 @ 11:01 by REBEKA Dickson) Dyslipidemia Elevated liver enzymes Screening PSA (prostate specific antigen) Encounter for routine adult physical exam with abnormal findings Pre-op examination Bronchitis Weight loss Elevated fasting blood sugar Newly diagnosed diabetes Fatigue Screening for colon cancer Diabetes Screening for colon cancer Screening for STD (sexually transmitted disease) Screening for HIV (human immunodeficiency virus) Diabetes Night terror PTSD (post-traumatic stress disorder) Migraines Fatty liver HTN (hypertension) Suicidal ideation Depression with anxiety Surgical History Hx of nasal septoplasty History of esophagogastroduodenoscopy (EGD) H/O colonoscopy Hx of cholecystectomy History of appendectomy Hx of right knee surgery History of shoulder surgery Hx of left knee surgery Family History Father No problems noted. Mother No problems noted. Maternal Grandfather Cancer Other Mental health disorder Social History Housing: House Alcohol intake: never Patient Tobacco Use Status: Never used Tobacco e-Cigarette/Vaping Use: Never Used Second Hand Smoke Exposure: Yes service: No Current occupational status: disabled Cognitive needs: No Hearing needs: No Vision needs: Yes Questionnaire Thrive Questionnaire Date Thrive assessed: 01/26/25 I am a: Patient What is your living situation today?: I have a place to live, but I am worried about losing it in the future Within the past 12 months, did the food you bought not last and you didn't have the money to get more?: Often true Within the past 12 months, did you worry whether your food would run out before you got money to buy more?: Often true Do you have trouble paying for medicines?: No Do you have trouble getting transportation to medical appointments?: No Do you have trouble paying your heating and electricity bill?: Yes Do you have trouble taking care of your child, family member or friend?: No Do you have trouble with day-to-day activities such as bathing, preparing meals, shopping, managing finances, etc.?: Yes Are you currently unemployed and looking for a job?: I choose not to answer this question Are you interested in more education?: No Currently or been in a relationship where the following occur: I choose not to answer THRIVE Score: 4 MAGUI-7 AMB Questionnaire MAGUI-7 Date MAGUI - 7 assessed: 02/02/25 Source: Developed by Drs. Renny Yepez, Katiuska Hernández, Pradeep Banuelos and colleagues, with an educational arminda from [employer]. Physical exam (Primary Care) Vital Signs: Last Vital Signs Pulse 78 08/04/25 10:05 Resp 16 08/04/25 10:05 BP 116/74 08/04/25 10:05 Pulse Ox 97 08/04/25 10:05 Oxygen Delivery Method Room Air 08/04/25 10:05 BMI result Body Mass Index 27.3 Tobacco/Smoking Status: Tobacco use Status Tobacco use date assessed 08/04/25 08/04/25 10:11 Patient Tobacco Use Status Never used Tobacco 08/04/25 10:05 e-Cigarette/Vaping Use Never Used 08/04/25 10:05 Thrive Assessment: Date of Thrive Assessment Date Thrive assessed 01/26/25 08/04/25 10:05 Currently or been in a relationship where the following occur: I choose not to answer Office Procedures Diabetic Foot Exam G9226 - Diabetic Foot Exam (+ sensation with use of monofilament and 128 tuning fork, Intact bilat) Coding Level of Care Code Est Pt Level 4 (91753) Diagnoses Elevated liver enzymes R74.8 Diabetes mellitus with neuropathy E11.40 Dyslipidemia E78.5 CPT Codes Diabetic Foot Exam - CPT: G9226 - Diabetic Foot Exam ([id number]) Assessment & Plan Assessment & Plan (1) Elevated liver enzymes: Code(s): R74.8 - Abnormal levels of other serum enzymes Category: Medical (2) Diabetes mellitus with neuropathy: Code(s): E11.40 - Type 2 diabetes mellitus with diabetic neuropathy, unspecified Category: Medical (3) Dyslipidemia: Code(s): E78.5 - Hyperlipidemia, unspecified Category: Medical Plan . Orders: Orders US abdomen complete Today R74.8 - Abnormal levels of other serum enzymes Comprehensive Met. Panel Today E11.40 - Type 2 diabetes mellitus with diabetic neuropathy, unspecified, R74.8 - Abnormal levels of other serum enzymes Complete Blood Count Auto Diff Today E11.40 - Type 2 diabetes mellitus with diabetic neuropathy, unspecified, R74.8 - Abnormal levels of other serum enzymes Hepatitis A,B,C Profile Today E11.40 - Type 2 diabetes mellitus with diabetic neuropathy, unspecified, R74.8 - Abnormal levels of other serum enzymes Smooth Muscle Antibody Today R74.8 - Abnormal levels of other serum enzymes Ferritin Today R74.8 - Abnormal levels of other serum enzymes IRON PROFILE Today R74.8 - Abnormal levels of other serum enzymes
== END 2025-08-04 11:43 | disposition home or self-care (01) ==
LOC: HO.HMCC 09:56
PROVIDERS: PCP Nurse Practitioner Family; Visit Provider Nurse Practitioner Family
DX: R74.8 Abnormal levels of other serum enzymes (principal); E11.40 Type 2 diabetes mellitus with diabetic neuropathy, unspecified; E78.5 Hyperlipidemia, unspecified

== ENCOUNTER → 2025-08-04 09:55 | Outpatient (BNVA) | payer MEDICARE, MEDICAID, SELFPAY | PROVIDERS: PCP Nurse Practitioner Family; Visit Provider Nurse Practitioner Family | DX: E11.40 Type 2 diabetes mellitus with diabetic neuropathy, unspecified (principal); E78.5 Hyperlipidemia, unspecified; R74.8 Abnormal levels of other serum enzymes; K76.0 Fatty (change of) liver, not elsewhere classified | CPT/HCPCS: 99212 ==